=== PATIENT | male | born 1960 | race Caucasian/White ===

== ENCOUNTER → 2017-10-14 10:10 | Outpatient (CLI) | payer BC, SELFPAY ==
--- NOTE | 2017-10-14 10:14 | PCM.CR.HP2 ---
CR - History & Physical - General Arrival date:: 10/14/17 Arrival time:: 10:15 Date of Admission: 10/14/17 Referring Physician: Dr. Ammon Elias Primary Diagnosis: STEMI (acute myocardial infarction) w/ PCI-WHITNEY - History of Present Cardiac Event Onset Date: Enter Onset Date of cardiac illnesses in Comment field below OR:: Yes - Acute myocardial infarction (STEMI) 09/28/2017 PTCA:: Yes - 09/28/2017 PCI-WHITNEY to distal RCA and WHITNEY to proximal LAD Type of Symptoms:: Chest pain substernal for about an hour prior to arrival in emergency room. Left arm was completely numb hurting and finger tips became really cold. Interventions with present event:: Imergent transport to produce laborer from ER. Were there any complications?: none - Medications Home Medications: Ambulatory Orders Medication Instructions Recorded Aspirin E.C. [Ecotrin] 81 mg PO DAILY@0800 tablet 09/30/17 Atorvastatin Calcium [Lipitor] 40 mg PO QHS 30 Days #30 tab 09/30/17 Carvedilol [Coreg (Beta Rishabh)] 3.125 mg PO BID 60 Days #60 tab 09/30/17 Clopidogrel Bisulfate [Plavix] 75 mg PO DAILY 30 Days tab 09/30/17 Lisinopril [Zestril] 10 mg PO DAILY 30 Days #30 tab 09/30/17 - Allergies Allergies/Adverse Reactions: Allergies No Known Allergies Allergy (Verified 09/28/17 18:17) - Sleep Disorder Evaluation Hx of Sleep Apnea: No Do you snore loudly (louder than talking or can be heard through closed doors)?: No Do you often feel tired/ fatigued/ sleepy during daytime?: No Has anyone observed you stop breathing during sleep?: No History of Hypertension (for STOP score): Yes STOP Results: Negative Advanced Directives - Advanced Directives Power of Aircraft Communicator: Yes Living Will: Yes Advance Directives Information Provided: No Advance Directives on File: Yes DNR Order?:: No Past Medical History - Problems and Co-Morbidities Problems & Co-Morbidities: Smoking - Nicotine dependence; quit cold turkey at time of the OR, Dyslipidemia, Obesity, Hypertension - Past Cardiac Illness Past Cardiac Illness: Ejection Fraction - 50% per angiogram, Coronary Artery Disease - Other Other: Vision/Eye Problems - Cardiology Procedures/Interventions Cardiology Procedures/Interventions: Angioplasty, PCI w/Stenting, Heart Catheterization, Echocardiogram - Past Surgical History Surgical History: cholecystectomy, rotator cuff repair - right shoulder repair - Family History Summary Family History: Heart Disease: Sibling, Maternal - Brother; CAD, CABG. Mother PTCA, stents Review of Systems - Review of Systems Hints: Right click = Denies (Slash). Left click = Reports ([place]) Review of Present Symptoms: Reports: Shortness of Breath at Rest, Shortness of Breath with Exertion, Operative Discomfort - slight discomfort in chest since been home from hospital on scale 1-10 rated it at a 1., Fatigue, Appetite - Normal, Appetite - Special Diet - trying to change diet with what was given from admission., Sleep - Normal - works third shift; doesn't have a sleep pattern.. Denies: Angina, Dizziness/Lightheadedness, Sexual Changes Risk Factor Assessment - Chief Complaint Chief Complaint: Patient is a 56 year old male under the care of Dr. Elias who presents to cardiac rehab today. The patient was a recent STEMI and emergent PCI-WHITNEY procedures to the RCA and LAD coronary artery. - Pulse Pulse Rate: 62 - SpO2 98% room air. Pulse Rhythm: Regular - Hypertension On medication(s)?: recently since OR treated. Blood Pressure Sitting - Left Arm: 128/66 - Diabetes Nutrition Referral for Diabetes: No - Obesity Height: 5 ft 8.89 in Weight:: 95 kg Weight in Pounds: 209.4 lbs Body Mass Index (BMI): 31.0 Nutritional Referral for Obesity: No - Physical Inactivity Physical Inactivity: Physically demanding job - walk about 5 to 6 miles a day at work. - Risk Stratification Risk Guidelines: Lowest Risk: Risk Factor for Dyslipidemia, Risk Factor for Diabetes, Risk Factor for Hypertension, Risk Factor for Sedentary Lifestyle, Risk Factor for Depression, Highest Risk: Risk Factor for Smoking, Risk Factor for Obesity - For Smoking Smoking Risk Guidelines: Smoking Low Risk: None or quit greater than 6 months ago. Smoking Moderate Risk: Smoker or quit 6 months or less ago. Smoking High Risk: Smoker - For Dyslipidemia Dyslipidemia Risk Guidelines: Low Risk: Moderate Risk: High Risk: 15-25% fat 25.1-29% fat >/= 30% fat. <7% sat fat 7-9% sat fat >9% sat fat. <150 mg chol 150-299 mg chol >/= 300 mg chol. LDL <100 LDL 100-129 LDL >/= 130. Chol/HDL ratio <5.0 Chol/HDL ratio 5.0-6.0 Chol/HDL ratio >6.0. Triglycerides <100 Triglycerides 100-149 Triglycerides >/= 150 - For Diabetes Mellitus Diabetes Risk Guidelines: Diabetes Low Risk: HgA1c <6.5% and/or FBG <120. Diabetes Moderate Risk: HgA1c 6.6-7.9% and/or FBG 120-180. Diabetes High Risk: HgA1c >/= 8% and/or FBG >180 - For Obesity/Overweight Obesity/Overweight Risk Guidelines: Obesity Low Risk: BMI <25.0. Obesity Moderate Risk: BMI 25-29.9. Obesity High Risk: BMI >/= 30.0 - For Hypertension Hypertension Risk Guidelines: Hypertension Low Risk: Systolic <120 and Diastolic <80. Hypertension Moderate Risk: Systolic 120-139 and Diastolic 80-89. Hypertension High Risk: Systolic >/= 140 and Diastolic >/= 90 - For Sedentary Lifestyle Sedentary Lifestyle Risk Guidelines: Sedentary Lifestyle Low Risk: >/= 1,500 kcal/week. Sedentary Lifestyle Moderate Risk: 700-1,499 kcal/week. Sedentary Lifestyle High Risk: < 700 kcal/week - For Depression Depression Risk Guidelines: Depression Low Risk: Not clinically depressed. Depression Moderate Risk: Mildly depressed. Depression High Risk: Clinically depressed Social History - Smoking History Smoking Status: Former smoker - recently quit cold turkey with the OR Years Smokin - chew also Packs Smoked per Day: 1 Hx Smoking Cessation Date: 09/28/2017 Hx Tobacco Use: Yes Hx Smoking Exposure: No - Alcohol Use Alcohol Usage: Yes - Chronic alcohol use - Substance Abuse Hx Substance Use: Yes - previous; not in the last 20 years - Occupation Occupation (List type of work in comments):: Employed Hours worked per day:: 8 - Hobbies, Recreation, Social Activities Hobbies: Other - fishing, camping, outdoor stuff but hasnt been active with it lately. Recreational Activities: I am able to engage in most, but not all activities Marital Status - Status Marital Status: Single - Current Living Arrangements Living Environment:: Alone - Children How many children do you have?: 1 Do any of your children live nearby?: Yes - [place] - Safety Do you feel safe in your surroundings?: Yes - Assistance Do you need any assistance at home?: no
--- NOTE | 2017-10-14 10:25 | CR.ITP_ITS ---
Exercise - Initial Assessment - Visit Date of Eval: 10/14/17 - Stages of Change Stages of Change:: Action - Exercise Prescription Mode:: Treadmill, Rower, Airdyne, NuStep Angina with exercise?: No Target Heart Rate:: 124-132 - Intervention Home Exercise/Activity Goal:: Moderate Exercise 30 min/day x 5 days/wk - Education Goals:: Warm-up, RPE HARMONY Scale, S/S, Safe Exercise, Self-Monitoring - Exercise Program Goals Exercise Program Goals: Aerobic Activity >30 min Nutrition - Initial Assessment - Program Goals Nutrition Program Goals: LDL <70. Total Cholesterol <200. HDL >45. Triglycerides <150. HgbA1C <7%. BMI <25 - Visit Date of Assessment:: 10/14/17 - initial evaluation - Stages of Change Stages of Change:: Action - Diabetes Diabetes:: No - Weight Management Height: 5 ft 8.89 in Weight:: 95 kg Body Fat %:: 31.0 - Intervention Referral to dietitian:: No Referral to Diabetic Clinic:: No Will attend diet classes:: No - Education Gave educational materials for:: Healthy eating Nutrition - 30-Day Assessment - Program Goals Nutrition Program Goals: LDL <70. Total Cholesterol <200. HDL >45. Triglycerides <150. HgbA1C <7%. BMI <25 - Diabetes Diabetes:: No Nutrition - 60-Day Assessment - Program Goals Nutrition Program Goals: LDL <70. Total Cholesterol <200. HDL >45. Triglycerides <150. HgbA1C <7%. BMI <25 - Diabetes Diabetes:: No Nutrition - 90-Day Assessment - Program Goals Nutrition Program Goals: LDL <70. Total Cholesterol <200. HDL >45. Triglycerides <150. HgbA1C <7%. BMI <25 - Diabetes Diabetes:: No Nutrition - Final Assessment - Program Goals Nutrition Program Goals: LDL <70. Total Cholesterol <200. HDL >45. Triglycerides <150. HgbA1C <7%. BMI <25 - Diabetes Diabetes:: No Tobacco - Initial Assessment - Program Goals Tobacco Program Goals: Complete smoking cessation. Attend education classes. Improve Knowledge Test score - Stage of Change Stages of Change:: Action - Learning Barriers Learning Barriers: Vision - wears corrective lenses daily, Ready to Learn - Family Support Do you have family support?: Yes - Tobacco Use Tobacco Use: Cigarettes How long ago did you quit using tobacco products?: Less than 6 months ago How many cigarettes do you smoke per day?: 1 Years Smokin - in addition to smokeless tobacco use Do you use smokeless tobacco?: No - Intervention Smoking Cessation Referral:: Yes - Referred to Smoking Cessation Program at [facility]. Individual Education/Counseling:: No Education Schedule Given:: Yes - Education Gave educational material for:: Tobacco triggers, Coronary artery disease, Risk factors, Sexuality, Medical compliance, Cardiac A&P, Angina signs & symptoms Psychosocial - Initial Assess - Target Goals Target Goals: Assess presence or absence of depression. Using a valid screening tool, maximizes coping skills. Positive support system - Stages of Change Stages of Change:: Action - Psychosocial Test Tool Used:: HANDS Depression Questionnaire Tests Completed: SF - 36 survey completed, Mood Scale Test - Intervention PS - Interventions: Yes Attend Stress Management Classes, Yes Uses Stress Management Skills, No Referral to Mental Health, No Referral to [facility] Case Management, No Referral to Physician - Education Gave educational materials for:: Coping techniques, Signs & symptoms of depression, Stress management, Relaxation techniques - Patient/Program Goal Preventative Medication(s):: Aspirin, UMAIR inhibitor, Clopidogrel, Beta eric, Statin/lipid - Assistive Devices Assistive Devices:: None Fall Risk Assessed:: Yes Patient Health Questionnaire Initial Assessment 1. Little interest or pleasure in doing things: Not at all 2. Feeling down, depressed, or hopeless: Not at all 3. Trouble falling or staying asleep, or sleeping too much: Not at all 4. Feeling tired or having little energy: Not at all 5. Poor appetite or overeating: Not at all 6. Feeling bad about yourself -- or that you are a failure or have let yourself or your family down: Not at all 7. Trouble concentrating on things, such as reading the newspaper or watching television: Not at all 8. Moving or speaking so slowly that other people could have noticed. Or the opposite - being so fidgety or restless that you have been moving around a lot more than usual: Not at all 9. Thoughts that you would be better off , or of hurting yourself in some way: Not at all How difficult have these problems made it for you to do your work, take care of things at home, or get along with other people?: Not difficult at all Total Score: 0 Knowledge Test - Check your knowledge Initial The #1 cause of in the [place] each year is:: Cancer Which of the following is a common treatment for heart disease?: All of the above The arteries that feed the heart are called:: Coronary arteries HDL cholesterol is known as the good cholesterol.: False What disease increases your risk for heart disease?: Diabetes What food product raises blood cholesterol level the most?: Saturated fat The bad cholesterol in the blood is called:: RBC Hypertension is another word for:: High activity levels A blood pressure reading of 148/88 is considered normal.: False Exercise will only benefit your health when your heart rate reaches a target level.: False Total Score:: 6 Self-Efficacy Initial Assessment We would like to know how confident you are in doing certain activities. Please select your confidence level for:: Select your confidence level for the following using the scale 1-10 where 1 is not at all confident and 10 is totally confident. Your score is the average of all 6 responses. Fatigue: How confident are you that you can keep the fatigue caused by your disease from interfering with the things you want to do? Select Number: 6 Physical Discomfort or Pain: How confident are you that you can keep the physical discomfort or pain of your disease from interfering with the things you want to do? Select Number: 8 Emotional Distress: How confident are you that you can keep the emotional distress caused by your disease from interfering with the things you want to do? Select Number: 8 Other Symptoms or Health Problems: How confident are you that you can keep other symptoms or health problems from interfering with the things you want to do? Select Number: 8 Different Tasks and Activities: How confident are you that you can do the different tasks and activities needed to manage your health condition so as to reduce your need to see a doctor? Select Number: 7 Medication: How confident are you that you can do things other than just taking medication to reduce how much your illness affects your everyday life? Select Number: 8 Total Score:: 7 Nutrition Survey - Nutrition Survey Instructions Scoring Instructions: Scoring is as follows: Yes = 1 points. No = 0 point. Patient score that is >/=12 is considered to be at potential nutritional risk and could benefit from a referral to a registered dietitian. - Nutrition Survey Initial Have you lost >10 lbs over the past 2 months without trying?: No Are you following a special diet at home for diabetes, low fat, or low salt?: Yes Are you interested in meeting with a dietitian for help understanding your diet? : No Do you eat less than 3 meals a day?: Yes Do you eat fatty meats (ferris, sausage, ribs, etc), fried foods, desserts, large amounts of salad dressings, margarine, butter, or cheese most days?: No Do you have food allergies? [Enter types in comment field]: No Do you eat in restaurants more than 3 times a week?: No Do you season food with salt, seasoning salt, or garlic salt?: No Do you used canned, boxed, frozen meals, or soups, seasoning packets?: Yes Total Score:: 3 Cardiac Rehabilitation Goals - Cardiac Rehab Goals Cardiac Rehabilitation Goals: 1. Maintain the individual as the primary focus of care. 2. To improve the patient's quality of life. 3. Identification of cardiac risk factors and provide cardiac risk factor management. 4. Enhance the psychosocial status of the patient. 5. Reconditioning enough to allow the patient to resume customary activities. 6. Control symptoms of cardiac disease - Scale Scale for measuring improvement of personal goals: Enter appropriate number in Comments. 2 = Unchanged. 3 = Slightly Better. 4 = Moderate Improvement. 5 = Met my Goal Initial Assessment Personal Goals: 30-day Re-assessment: Quit smoking (participate in smoking cessation, Improve management of stress and emotions, Get back to work, or to resume activities faster, Improve knowledge of cardiac disease, Improve diet and eating habits (eat healthier), Control risk factors (learn risk factor modification)
--- NOTE | 2017-10-14 10:25 | CR.HP_ITS ---
CR - History & Physical - General Arrival date:: 10/14/17 Arrival time:: 10:15 Date of Admission: 10/14/17 Referring Physician: Dr. Ammon Elias Primary Diagnosis: STEMI (acute myocardial infarction) w/ PCI-WHITNEY - History of Present Cardiac Event Onset Date: Enter Onset Date of cardiac illnesses in Comment field below ID:: Yes - Acute myocardial infarction (STEMI) 09/28/2017 PTCA:: Yes - 09/28/2017 PCI-WHITNEY to distal RCA and WHITNEY to proximal LAD Type of Symptoms:: Chest pain substernal for about an hour prior to arrival in emergency room. Left arm was completely numb hurting and finger tips became really cold. 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 Were there any complications?: none - Medications Home Medications: Ambulatory Orders Medication Instructions Recorded Aspirin E.C. [Ecotrin] 81 mg PO DAILY@0800 tablet 09/30/17 Atorvastatin Calcium [Lipitor] 40 mg PO QHS 30 Days #30 tab 09/30/17 Carvedilol [Coreg (Beta Rishabh)] 3.125 mg PO BID 60 Days #60 tab 09/30/17 Clopidogrel Bisulfate [Plavix] 75 mg PO DAILY 30 Days tab 09/30/17 Lisinopril [Zestril] 10 mg PO DAILY 30 Days #30 tab 09/30/17 - Allergies Allergies/Adverse Reactions: Allergies No Known Allergies Allergy (Verified 09/28/17 18:17) - Sleep Disorder Evaluation Hx of Sleep Apnea: No Do you snore loudly (louder than talking or can be heard through closed doors)? : No Do you often feel tired/ fatigued/ sleepy during daytime?: No Has anyone observed you stop breathing during sleep?: No History of Hypertension (for STOP score): Yes STOP Results: Negative Advanced Directives - Advanced Directives Power of Veterinary Medicine Doctor: Yes Living Will: Yes Advance Directives Information Provided: No Advance Directives on File: Yes DNR Order?:: No Past Medical History - Problems and Co-Morbidities Problems & Co-Morbidities: Smoking - Nicotine dependence; quit cold turkey at time of the ID, Dyslipidemia, Obesity, Hypertension - Past Cardiac Illness Past Cardiac Illness: Ejection Fraction - 50% per angiogram, Coronary Artery Disease - Other Other: Vision/Eye Problems - Cardiology Procedures/Interventions Cardiology Procedures/Interventions: Angioplasty, PCI w/Stenting, Heart Catheterization, Echocardiogram - Past Surgical History Surgical History: cholecystectomy, rotator cuff repair - right shoulder repair - Family History Summary Family History: Heart Disease: Sibling, Maternal - Brother; CAD, CABG. Mother PTCA, stents Review of Systems - Review of Systems Hints: Right click = Denies ([place]). Left click = Reports ([place]) Review of Present Symptoms: Reports: Shortness of Breath at Rest, Shortness of Breath with Exertion, Operative Discomfort - slight discomfort in chest since been home from hospital on scale 1-10 rated it at a 1., Fatigue, Appetite - Normal, Appetite - Special Diet - trying to change diet with what was given from admission., Sleep - Normal - works third shift; doesn't have a sleep pattern.. Denies: Angina, Dizziness/Lightheadedness, Sexual Changes Risk Factor Assessment - Chief Complaint Chief Complaint: Patient is a 56 year old male under the care of Dr. Elias who presents to cardiac rehab today. The patient was a recent STEMI and emergent PCI -WHITNEY procedures to the RCA and LAD coronary artery. - Pulse Pulse Rate: 62 - SpO2 98% room air. Pulse Rhythm: Regular - Hypertension On medication(s)?: recently since ID treated. Blood Pressure Sitting - Left Arm: 128/66 - Diabetes Nutrition Referral for Diabetes: No - Obesity Height: 5 ft 8.89 in Weight:: 95 kg Weight in Pounds: 209.4 lbs Body Mass Index (BMI): 31.0 Nutritional Referral for Obesity: No - Physical Inactivity Physical Inactivity: Physically demanding job - walk about 5 to 6 miles a day at work. - Risk Stratification Risk Guidelines: Lowest Risk: Risk Factor for Dyslipidemia, Risk Factor for Diabetes, Risk Factor for Hypertension, Risk Factor for Sedentary Lifestyle, Risk Factor for Depression, Highest Risk: Risk Factor for Smoking, Risk Factor for Obesity - For Smoking Smoking Risk Guidelines: Smoking Low Risk: None or quit greater than 6 months ago. Smoking Moderate Risk: Smoker or quit 6 months or less ago. Smoking High Risk: Smoker - For Dyslipidemia Dyslipidemia Risk Guidelines: Low Risk: Moderate Risk: High Risk: 15-25% fat 25.1-29% fat >/= 30% fat. <7% sat fat 7-9% sat fat >9% sat fat. <150 mg chol 150-299 mg chol >/= 300 mg chol. LDL <100 LDL 100-129 LDL >/= 130. Chol/HDL ratio <5.0 Chol/HDL ratio 5.0-6.0 Chol/HDL ratio >6.0. Triglycerides <100 Triglycerides 100-149 Triglycerides >/= 150 - For Diabetes Mellitus Diabetes Risk Guidelines: Diabetes Low Risk: HgA1c <6.5% and/or FBG <120. Diabetes Moderate Risk: HgA1c 6.6-7.9% and/or FBG 120-180. Diabetes High Risk: HgA1c >/= 8% and/or FBG >180 - For Obesity/Overweight Obesity/Overweight Risk Guidelines: Obesity Low Risk: BMI <25.0. Obesity Moderate Risk: BMI 25-29.9. Obesity High Risk: BMI >/= 30.0 - For Hypertension Hypertension Risk Guidelines: Hypertension Low Risk: Systolic <120 and Diastolic <80. Hypertension Moderate Risk: Systolic 120-139 and Diastolic 80-89. Hypertension High Risk: Systolic >/= 140 and Diastolic >/= 90 - For Sedentary Lifestyle Sedentary Lifestyle Risk Guidelines: Sedentary Lifestyle Low Risk: >/= 1 ,500 kcal/week. Sedentary Lifestyle Moderate Risk: 700-1,499 kcal/week. Sedentary Lifestyle High Risk: < 700 kcal/week - For Depression Depression Risk Guidelines: Depression Low Risk: Not clinically depressed. Depression Moderate Risk: Mildly depressed. Depression High Risk: Clinically depressed Social History - Smoking History Smoking Status: Former smoker - recently quit cold turkey with the ID Years Smokin - chew also Packs Smoked per Day: 1 Hx Smoking Cessation Date: 09/28/2017 Hx Tobacco Use: Yes Hx Smoking Exposure: No - Alcohol Use Alcohol Usage: Yes - Chronic alcohol use - Substance Abuse Hx Substance Use: Yes - previous; not in the last 20 years - Occupation Occupation (List type of work in comments):: Employed Hours worked per day:: 8 - Hobbies, Recreation, Social Activities Hobbies: Other - fishing, camping, outdoor stuff but hasnt been active with it lately. Recreational Activities: I am able to engage in most, but not all activities Marital Status - Status Marital Status: Single - Current Living Arrangements Living Environment:: Alone - Children How many children do you have?: 1 Do any of your children live nearby?: Yes - [place] - Safety Do you feel safe in your surroundings?: Yes - Assistance Do you need any assistance at home?: no
[2017-10-14 10:41] VITALS: BP 128/66; PULSE 62; BMI 31.0
== END ==
PROVIDERS: Family Provider Internal Medicine; PCP Internal Medicine; Visit Provider Internal Medicine Cardiovascular Disease
DX: I25.2 Old myocardial infarction (principal)

== ENCOUNTER 2017-10-19 08:00 | Outpatient (RCR) | payer BC, SELFPAY | END 2017-10-19 23:59 | LOC: CR 08:00 | PROVIDERS: Family Provider Internal Medicine; PCP Internal Medicine; Visit Provider Internal Medicine Cardiovascular Disease | DX: I23.3 Rupture of cardiac wall without hemopericardium as current complication following acute myocardial infarction (principal); I25.10 Atherosclerotic heart disease of native coronary artery without angina pectoris; Z95.5 Presence of coronary angioplasty implant and graft | CPT/HCPCS: 93798 ==

== ENCOUNTER 2017-11-16 08:00 | Outpatient (RCR) | payer BC, SELFPAY ==
[2017-09-30 06:00] VITALS: BP 124/76
[2017-10-19 15:33] VITALS: BP 128/78; BMI 29.9
--- NOTE | 2017-11-15 08:17 | PCM.CR.ITP ---
Exercise - Initial Assessment - Stages of Change Stages of Change:: Action - Exercise Prescription Mode:: Treadmill, Rower, Airdyne, NuStep Angina with exercise?: No Target Heart Rate:: 124-132 - Intervention Home Exercise/Activity Goal:: Moderate Exercise 30 min/day x 5 days/wk - Education Goals:: Warm-up, RPE HARMONY Scale, S/S, Safe Exercise, Self-Monitoring - Exercise Program Goals Exercise Program Goals: Aerobic Activity >30 min Exercise - 30-day Assessment - Visit Date of Eval: 11/15/17 - Patient start date 10/17/2017 - Stages of Change Stages of Change:: Action - Exercise Prescription Mode:: Treadmill, Rower, Airdyne, NuStep Frequency (x/week): 3 Duration:: 30 METs - Progression: 0.5-1 MET as tolerated: 5 Target Heart Rate:: 132-141 w/max HR 153 - Hypertension Resting Blood Pressure:: 112/80 Peak Exercise Blood Pressure:: 158/94 Medication Changes:: No - Intervention Home Exercise/Activity Goal:: Moderate Exercise 30 min/day x 5 days/wk - Education Goals:: Warm-up, RPE HARMONY Scale, S/S, Safe Exercise, Self-Monitoring - Exercise Program Goals Exercise Program Goals: Aerobic Activity >30 min Nutrition - Initial Assessment - Program Goals Nutrition Program Goals: LDL <70. Total Cholesterol <200. HDL >45. Triglycerides <150. HgbA1C <7%. BMI <25 - Stages of Change Stages of Change:: Action - Diabetes Diabetes:: No - Weight Management Body Fat %:: 31.0 Total Score:: 3 - Intervention Referral to dietitian:: No Referral to Diabetic Clinic:: No Will attend diet classes:: No - Education Gave educational materials for:: Healthy eating Nutrition - 30-Day Assessment - Program Goals Nutrition Program Goals: LDL <70. Total Cholesterol <200. HDL >45. Triglycerides <150. HgbA1C <7%. BMI <25 - Visit Date of Eval: 11/15/17 - Stages of Change Stages of Change:: Action - Lipids Has the patient seen the dietitian?: No - Diabetes Diabetes:: No - Weight Management Weight:: 88.677 kg - Intervention Referral to dietitian:: No Referral to Diabetic Clinic:: No Will attend diet classes:: No - Education Attended class for:: Healthy eating Nutrition - 60-Day Assessment - Program Goals Nutrition Program Goals: LDL <70. Total Cholesterol <200. HDL >45. Triglycerides <150. HgbA1C <7%. BMI <25 - Diabetes Diabetes:: No - Intervention Referral to dietitian:: No Referral to Diabetic Clinic:: No Will attend diet classes:: No - Education Attended class for:: Healthy eating Nutrition - 90-Day Assessment - Program Goals Nutrition Program Goals: LDL <70. Total Cholesterol <200. HDL >45. Triglycerides <150. HgbA1C <7%. BMI <25 - Diabetes Diabetes:: No - Intervention Referral to dietitian:: No Referral to Diabetic Clinic:: No Will attend diet classes:: No - Education Attended class for:: Healthy eating Nutrition - Final Assessment - Program Goals Nutrition Program Goals: LDL <70. Total Cholesterol <200. HDL >45. Triglycerides <150. HgbA1C <7%. BMI <25 - Diabetes Diabetes:: No - Weight Management Body Fat %:: 31.0 Total Score:: 3 - Intervention Referral to dietitian:: No Referral to Diabetic Clinic:: No Will attend diet classes:: No Tobacco - Initial Assessment - Program Goals Tobacco Program Goals: Complete smoking cessation. Attend education classes. Improve Knowledge Test score - Stage of Change Stages of Change:: Action - Learning Barriers Learning Barriers: Vision - wears corrective lenses daily, Ready to Learn Total Score:: 6 - Family Support Do you have family support?: Yes - Tobacco Use Tobacco Use: Cigarettes How long ago did you quit using tobacco products?: Less than 6 months ago How many cigarettes do you smoke per day?: 1 Years Smokin - in addition to smokeless tobacco use Do you use smokeless tobacco?: No - Intervention Smoking Cessation Referral:: Yes - Referred to Smoking Cessation Program at [facility]. Individual Education/Counseling:: No Education Schedule Given:: Yes - Education Gave educational material for:: Tobacco triggers, Coronary artery disease, Risk factors, Sexuality, Medical compliance, Cardiac A&P, Angina signs & symptoms Tobacco - 30-Day Assessment - Program Goals Tobacco Program Goals: Complete smoking cessation. Attend education classes. Improve Knowledge Test score - Stage of Change Stages of Change:: Action - Learning Barriers Learning Barriers: Participates in education - Family Support Do you have family support?: Yes - Tobacco Use Tobacco Use: Non-smoker How many cigarettes do you smoke per day?: 0 Do you use smokeless tobacco?: No - Intervention Smoking Cessation Referral:: Yes - Referred to Smoking Cessation Program at [facility]. Individual Education/Counseling:: No Education Schedule Given:: Yes - Education Attended class for:: Tobacco triggers, Coronary artery disease, Risk factors, Sexuality, Medical compliance, Cardiac A&P, Angina signs & symptoms Tobacco - 60-Day Assessment - Program Goals Tobacco Program Goals: Complete smoking cessation. Attend education classes. Improve Knowledge Test score - Family Support Do you have family support?: Yes - Tobacco Use How many cigarettes do you smoke per day?: 1 Do you use smokeless tobacco?: No - Intervention Smoking Cessation Referral:: Yes - Referred to Smoking Cessation Program at [facility]. Individual Education/Counseling:: No Education Schedule Given:: Yes - Education Attended class for:: Tobacco triggers, Coronary artery disease, Risk factors, Sexuality, Medical compliance, Cardiac A&P, Angina signs & symptoms Tobacco - 90-Day Assessment - Program Goals Tobacco Program Goals: Complete smoking cessation. Attend education classes. Improve Knowledge Test score - Family Support Do you have family support?: Yes - Tobacco Use How many cigarettes do you smoke per day?: 1 Do you use smokeless tobacco?: No - Intervention Smoking Cessation Referral:: Yes - Referred to Smoking Cessation Program at [facility]. Individual Education/Counseling:: No Education Schedule Given:: Yes - Education Attended class for:: Tobacco triggers, Coronary artery disease, Risk factors, Sexuality, Medical compliance, Cardiac A&P, Angina signs & symptoms Tobacco - Final Assessment - Program Goals Tobacco Program Goals: Complete smoking cessation. Attend education classes. Improve Knowledge Test score - Learning Barriers Cardiac Knowledge Test Score:: 6 - Family Support Do you have family support?: Yes - Tobacco Use How many cigarettes do you smoke per day?: 1 Do you use smokeless tobacco?: No - Intervention Smoking Cessation Referral:: Yes - Referred to Smoking Cessation Program at [facility]. Individual Education/Counseling:: No Education Schedule Given:: Yes Psychosocial - Initial Assess - Target Goals Target Goals: Assess presence or absence of depression. Using a valid screening tool, maximizes coping skills. Positive support system - Stages of Change Stages of Change:: Action - Psychosocial Test Tool Used:: HANDS Depression Questionnaire Tests Completed: SF - 36 survey completed, Mood Scale Test Self-Efficacy Score:: 7 - Intervention PS - Interventions: Yes Attend Stress Management Classes, Yes Uses Stress Management Skills, No Referral to Mental Health, No Referral to [facility] Case Management, No Referral to Physician - Education Gave educational materials for:: Coping techniques, Signs & symptoms of depression, Stress management, Relaxation techniques - Patient/Program Goal Preventative Medication(s):: Aspirin, UMAIR inhibitor, Clopidogrel, Beta eric, Statin/lipid - Assistive Devices Assistive Devices:: None Fall Risk Assessed:: Yes Psychosocial - 30-Day Assess - Target Goals Target Goals: Assess presence or absence of depression. Using a valid screening tool, maximizes coping skills. Positive support system - Stages of Change Stages of Change:: Action - Psychosocial Test Tool Used:: HANDS Depression Questionnaire Self-Efficacy Score:: 7 - Intervention PS - Interventions: Yes Attend Stress Management Classes, Yes Uses Stress Management Skills, No Referral to Mental Health, No Referral to [facility] Case Management, No Referral to Physician - Education Attended classes for:: Coping techniques, Signs & symptoms of depression, Stress management, Relaxation techniques - Patient/Program Goal Preventative Medication(s):: Aspirin, UMAIR inhibitor, Clopidogrel, Beta eric, Statin/lipid - Assistive Devices Assistive Devices:: None Fall Risk Assessed:: Yes Psychosocial - 60-Day Assess - Target Goals Target Goals: Assess presence or absence of depression. Using a valid screening tool, maximizes coping skills. Positive support system - Psychosocial Test Tool Used:: HANDS Depression Questionnaire Self-Efficacy Score:: 7 - Education Attended classes for:: Coping techniques, Signs & symptoms of depression, Stress management, Relaxation techniques - Patient/Program Goal Preventative Medication(s):: Aspirin, UMAIR inhibitor, Clopidogrel, Beta eric, Statin/lipid - Assistive Devices Assistive Devices:: None Fall Risk Assessed:: Yes Psychosocial - 90-Day Assess - Target Goals Target Goals: Assess presence or absence of depression. Using a valid screening tool, maximizes coping skills. Positive support system - Psychosocial Test Tool Used:: HANDS Depression Questionnaire Self-Efficacy Score:: 7 - Education Attended classes for:: Coping techniques, Signs & symptoms of depression, Stress management, Relaxation techniques - Patient/Program Goal Preventative Medication(s):: Aspirin, UMAIR inhibitor, Clopidogrel, Beta eric, Statin/lipid - Assistive Devices Assistive Devices:: None Fall Risk Assessed:: Yes Psychosocial - Final Assessmen - Target Goals Target Goals: Assess presence or absence of depression. Using a valid screening tool, maximizes coping skills. Positive support system - Psychosocial Test Tool Used:: HANDS Depression Questionnaire Tests Completed: SF - 36 survey completed, Mood Scale Test Self-Efficacy Score:: 7 - Patient/Program Goal Preventative Medication(s):: Aspirin, UMAIR inhibitor, Clopidogrel, Beta eric, Statin/lipid - Assistive Devices Assistive Devices:: None Fall Risk Assessed:: Yes Patient Health Questionnaire 30-Day Re-eval Assessment 1. Little interest or pleasure in doing things: Not at all 2. Feeling down, depressed, or hopeless: Not at all 3. Trouble falling or staying asleep, or sleeping too much: Not at all 4. Feeling tired or having little energy: Not at all 5. Poor appetite or overeating: Not at all 6. Feeling bad about yourself -- or that you are a failure or have let yourself or your family down: Not at all 7. Trouble concentrating on things, such as reading the newspaper or watching television: Not at all 8. Moving or speaking so slowly that other people could have noticed. Or the opposite - being so fidgety or restless that you have been moving around a lot more than usual: Not at all 9. Thoughts that you would be better off , or of hurting yourself in some way: Not at all Total Score: 0 Self-Efficacy 30-Day Re-eval Assessment We would like to know how confident you are in doing certain activities. Please select your confidence level for:: Select your confidence level for the following using the scale 1-10 where 1 is not at all confident and 10 is totally confident. Your score is the average of all 6 responses. Fatigue: How confident are you that you can keep the fatigue caused by your disease from interfering with the things you want to do? Select Number: 9 Physical Discomfort or Pain: How confident are you that you can keep the physical discomfort or pain of your disease from interfering with the things you want to do? Select Number: 10 Emotional Distress: How confident are you that you can keep the emotional distress caused by your disease from interfering with the things you want to do? Select Number: 10 Other Symptoms or Health Problems: How confident are you that you can keep other symptoms or health problems from interfering with the things you want to do? Select Number: 10 Different Tasks and Activities: How confident are you that you can do the different tasks and activities needed to manage your health condition so as to reduce your need to see a doctor? Select Number: 10 Medication: How confident are you that you can do things other than just taking medication to reduce how much your illness affects your everyday life? Select Number: 10 Total Score:: 9
[2017-11-15 08:20] VITALS: BP 112/80; BP 158/94
== END 2017-11-16 23:59 ==
LOC: CR 08:00
PROVIDERS: Family Provider Internal Medicine; PCP Internal Medicine; Visit Provider Internal Medicine Cardiovascular Disease
DX: I23.3 Rupture of cardiac wall without hemopericardium as current complication following acute myocardial infarction (principal); I25.10 Atherosclerotic heart disease of native coronary artery without angina pectoris; I21.3 ST elevation (STEMI) myocardial infarction of unspecified site; Z95.5 Presence of coronary angioplasty implant and graft
CPT/HCPCS: 93798

== ENCOUNTER 2017-12-16 08:00 | Outpatient (RCR) | payer BC, SELFPAY ==
[2017-11-17 00:59] VITALS: BP 112/80; BP 128/78; BP 158/94; BMI 29.9
[2017-12-12 08:10] VITALS: BP 112/68; BP 178/102
--- NOTE | 2017-12-12 08:11 | CR.ITP_ITS ---
Exercise - Initial Assessment - Stages of Change Stages of Change:: Action - Exercise Prescription Mode:: Treadmill, Rower, Airdyne, NuStep Angina with exercise?: No Target Heart Rate:: 124-132 - Intervention Home Exercise/Activity Goal:: Moderate Exercise 30 min/day x 5 days/wk - Education Goals:: Warm-up, RPE HARMONY Scale, S/S, Safe Exercise, Self-Monitoring - Exercise Program Goals Exercise Program Goals: Aerobic Activity >30 min Exercise - 30-day Assessment - Visit Date of Eval: 11/15/17 - Stages of Change Stages of Change:: Action - Exercise Prescription Mode:: Treadmill, Rower, Airdyne, NuStep Frequency (x/week): 3 Duration:: 30 METs - Progression: 0.5-1 MET as tolerated: 5 Target Heart Rate:: 132-141 w/max HR 153 - Intervention Home Exercise/Activity Goal:: Moderate Exercise 30 min/day x 5 days/wk - Education Goals:: Warm-up, RPE HARMONY Scale, S/S, Safe Exercise, Self-Monitoring - Exercise Program Goals Exercise Program Goals: Aerobic Activity >30 min Exercise - 60-Day Assessment - Visit Date of Eval: 12/12/17 Session #:: 24 - Dates 11/14-12/09/17 - Stages of Change Stages of Change:: Action - Exercise Prescription Mode:: Treadmill, Rower, Airdyne, NuStep Frequency (x/week): 3 Duration:: 35 METs: 6 Target Heart Rate:: 132-141 - Hypertension Resting Blood Pressure:: 112/68 Peak Exercise Blood Pressure:: 178/102 Medication Changes:: No - Intervention Home Exercise/Activity Goal:: Moderate Exercise 30 min/day x 5 days/wk - Education Goals:: Warm-up, RPE HARMONY Scale, S/S, Safe Exercise, Self-Monitoring - Exercise Program Goals Exercise Program Goals: Aerobic Activity >30 min Nutrition - Initial Assessment - Program Goals Nutrition Program Goals: LDL <70. Total Cholesterol <200. HDL >45. Triglycerides <150. HgbA1C <7%. BMI <25 - Stages of Change Stages of Change:: Action - Diabetes Diabetes:: No - Weight Management Body Fat %:: 31.0 Total Score:: 3 - Intervention Referral to dietitian:: No Referral to Diabetic Clinic:: No Will attend diet classes:: No - Education Gave educational materials for:: Healthy eating Nutrition - 30-Day Assessment - Program Goals Nutrition Program Goals: LDL <70. Total Cholesterol <200. HDL >45. Triglycerides <150. HgbA1C <7%. BMI <25 - Stages of Change Stages of Change:: Action - Lipids Has the patient seen the dietitian?: No - Diabetes Diabetes:: No - Intervention Referral to dietitian:: No Referral to Diabetic Clinic:: No Will attend diet classes:: No - Education Attended class for:: Healthy eating Nutrition - 60-Day Assessment - Program Goals Nutrition Program Goals: LDL <70. Total Cholesterol <200. HDL >45. Triglycerides <150. HgbA1C <7%. BMI <25 - Visit Date of Eval: 12/12/17 - Dates 11/14-12/09/17 - Stages of Change Stages of Change:: Action - Lipids Has the patient seen the dietitian?: No - Diabetes Diabetes:: No - Weight Management Weight:: 200 lb - Intervention Referral to dietitian:: No Referral to Diabetic Clinic:: No Will attend diet classes:: No - Education Attended class for:: Healthy eating Nutrition - 90-Day Assessment - Program Goals Nutrition Program Goals: LDL <70. Total Cholesterol <200. HDL >45. Triglycerides <150. HgbA1C <7%. BMI <25 - Lipids Has the patient seen the dietitian?: No - Diabetes Diabetes:: No - Intervention Referral to dietitian:: No Referral to Diabetic Clinic:: No Will attend diet classes:: No - Education Attended class for:: Healthy eating Nutrition - Final Assessment - Program Goals Nutrition Program Goals: LDL <70. Total Cholesterol <200. HDL >45. Triglycerides <150. HgbA1C <7%. BMI <25 - Diabetes Diabetes:: No - Weight Management Body Fat %:: 31.0 Total Score:: 3 - Intervention Referral to dietitian:: No Referral to Diabetic Clinic:: No Will attend diet classes:: No Tobacco - Initial Assessment - Program Goals Tobacco Program Goals: Complete smoking cessation. Attend education classes. Improve Knowledge Test score - Stage of Change Stages of Change:: Action - Learning Barriers Learning Barriers: Vision - wears corrective lenses daily, Ready to Learn Total Score:: 6 - Family Support Do you have family support?: Yes - Tobacco Use Tobacco Use: Cigarettes How long ago did you quit using tobacco products?: Less than 6 months ago How many cigarettes do you smoke per day?: 1 Years Smokin - in addition to smokeless tobacco use Do you use smokeless tobacco?: No - Intervention Smoking Cessation Referral:: Yes - Referred to Smoking Cessation Program at [facility]. Individual Education/Counseling:: No Education Schedule Given:: Yes - Education Gave educational material for:: Tobacco triggers, Coronary artery disease, Risk factors, Sexuality, Medical compliance, Cardiac A&P, Angina signs & symptoms Tobacco - 30-Day Assessment - Program Goals Tobacco Program Goals: Complete smoking cessation. Attend education classes. Improve Knowledge Test score - Stage of Change Stages of Change:: Action - Learning Barriers Learning Barriers: Participates in education - Family Support Do you have family support?: Yes - Tobacco Use Tobacco Use: Non-smoker How many cigarettes do you smoke per day?: 1 Do you use smokeless tobacco?: No - Intervention Smoking Cessation Referral:: Yes - Referred to Smoking Cessation Program at [facility]. Individual Education/Counseling:: No Education Schedule Given:: Yes - Education Attended class for:: Tobacco triggers, Coronary artery disease, Risk factors, Sexuality, Medical compliance, Cardiac A&P, Angina signs & symptoms Tobacco - 60-Day Assessment - Program Goals Tobacco Program Goals: Complete smoking cessation. Attend education classes. Improve Knowledge Test score - Stage of Change Stages of Change:: Action - Learning Barriers Learning Barriers: Participates in education - Family Support Do you have family support?: Yes - Tobacco Use Tobacco Use: Non-smoker How many cigarettes do you smoke per day?: 1 Do you use smokeless tobacco?: No - Intervention Smoking Cessation Referral:: Yes - Referred to Smoking Cessation Program at [facility]. Individual Education/Counseling:: No Education Schedule Given:: Yes - Education Attended class for:: Tobacco triggers, Coronary artery disease, Risk factors, Sexuality, Medical compliance, Cardiac A&P, Angina signs & symptoms Tobacco - 90-Day Assessment - Program Goals Tobacco Program Goals: Complete smoking cessation. Attend education classes. Improve Knowledge Test score - Family Support Do you have family support?: Yes - Tobacco Use Tobacco Use: Non-smoker How many cigarettes do you smoke per day?: 1 Do you use smokeless tobacco?: No - Intervention Smoking Cessation Referral:: Yes - Referred to Smoking Cessation Program at [facility]. Individual Education/Counseling:: No Education Schedule Given:: Yes - Education Attended class for:: Tobacco triggers, Coronary artery disease, Risk factors, Sexuality, Medical compliance, Cardiac A&P, Angina signs & symptoms Tobacco - Final Assessment - Program Goals Tobacco Program Goals: Complete smoking cessation. Attend education classes. Improve Knowledge Test score - Learning Barriers Cardiac Knowledge Test Score:: 6 - Family Support Do you have family support?: Yes - Tobacco Use Tobacco Use: Non-smoker How many cigarettes do you smoke per day?: 1 Do you use smokeless tobacco?: No - Intervention Smoking Cessation Referral:: Yes - Referred to Smoking Cessation Program at [facility]. Individual Education/Counseling:: No Education Schedule Given:: Yes Psychosocial - Initial Assess - Target Goals Target Goals: Assess presence or absence of depression. Using a valid screening tool, maximizes coping skills. Positive support system - Stages of Change Stages of Change:: Action - Psychosocial Test Tool Used:: HANDS Depression Questionnaire Tests Completed: SF - 36 survey completed, Mood Scale Test Self-Efficacy Score:: 7 - Education Gave educational materials for:: Coping techniques, Signs & symptoms of depression, Stress management, Relaxation techniques - Patient/Program Goal Preventative Medication(s):: Aspirin, UMAIR inhibitor, Clopidogrel, Beta eric, Statin/lipid - Assistive Devices Assistive Devices:: None Fall Risk Assessed:: Yes Psychosocial - 30-Day Assess - Target Goals Target Goals: Assess presence or absence of depression. Using a valid screening tool, maximizes coping skills. Positive support system - Stages of Change Stages of Change:: Action - Psychosocial Test Tool Used:: HANDS Depression Questionnaire Self-Efficacy Score:: 7 - Patient/Program Goal Preventative Medication(s):: Aspirin, UMAIR inhibitor, Clopidogrel, Beta eric, Statin/lipid - Assistive Devices Assistive Devices:: None Fall Risk Assessed:: Yes Psychosocial - 60-Day Assess - Target Goals Target Goals: Assess presence or absence of depression. Using a valid screening tool, maximizes coping skills. Positive support system - Psychosocial Test Tool Used:: HANDS Depression Questionnaire Self-Efficacy Score:: 7 - Intervention PS - Interventions: Yes Attend Stress Management Classes, Yes Uses Stress Management Skills, No Referral to Mental Health, No Referral to [facility] Case Management, No Referral to Physician - Education Attended classes for:: Coping techniques, Signs & symptoms of depression, Stress management, Relaxation techniques - Patient/Program Goal Preventative Medication(s):: Aspirin, UMAIR inhibitor, Clopidogrel, Beta eric, Statin/lipid - Assistive Devices Assistive Devices:: None Fall Risk Assessed:: Yes Psychosocial - 90-Day Assess - Target Goals Target Goals: Assess presence or absence of depression. Using a valid screening tool, maximizes coping skills. Positive support system - Psychosocial Test Tool Used:: HANDS Depression Questionnaire Self-Efficacy Score:: 7 - Education Attended classes for:: Coping techniques, Signs & symptoms of depression, Stress management, Relaxation techniques - Patient/Program Goal Preventative Medication(s):: Aspirin, UMAIR inhibitor, Clopidogrel, Beta eric, Statin/lipid - Assistive Devices Assistive Devices:: None Fall Risk Assessed:: Yes Psychosocial - Final Assessmen - Target Goals Target Goals: Assess presence or absence of depression. Using a valid screening tool, maximizes coping skills. Positive support system - Psychosocial Test Tool Used:: HANDS Depression Questionnaire Tests Completed: SF - 36 survey completed, Mood Scale Test Self-Efficacy Score:: 7 - Patient/Program Goal Preventative Medication(s):: Aspirin, UMAIR inhibitor, Clopidogrel, Beta eric, Statin/lipid - Assistive Devices Assistive Devices:: None Fall Risk Assessed:: Yes Patient Health Questionnaire 60-Day Re-eval Assessment 1. Little interest or pleasure in doing things: Not at all 2. Feeling down, depressed, or hopeless: Not at all 3. Trouble falling or staying asleep, or sleeping too much: Not at all 4. Feeling tired or having little energy: Not at all 5. Poor appetite or overeating: Not at all 6. Feeling bad about yourself -- or that you are a failure or have let yourself or your family down: Not at all 7. Trouble concentrating on things, such as reading the newspaper or watching television: Not at all 8. Moving or speaking so slowly that other people could have noticed. Or the opposite - being so fidgety or restless that you have been moving around a lot more than usual: Not at all 9. Thoughts that you would be better off , or of hurting yourself in some way: Not at all Total Score: 0 Self-Efficacy 60-Day Re-eval Assessment We would like to know how confident you are in doing certain activities. Please select your confidence level for:: Select your confidence level for the following using the scale 1-10 where 1 is not at all confident and 10 is totally confident. Your score is the average of all 6 responses. Fatigue: How confident are you that you can keep the fatigue caused by your disease from interfering with the things you want to do? Select Number: 9 Physical Discomfort or Pain: How confident are you that you can keep the physical discomfort or pain of your disease from interfering with the things you want to do? Select Number: 10 Emotional Distress: How confident are you that you can keep the emotional distress caused by your disease from interfering with the things you want to do? Select Number: 10 Other Symptoms or Health Problems: How confident are you that you can keep other symptoms or health problems from interfering with the things you want to do? Select Number: 9 Different Tasks and Activities: How confident are you that you can do the different tasks and activities needed to manage your health condition so as to reduce your need to see a doctor? Select Number: 10 Medication: How confident are you that you can do things other than just taking medication to reduce how much your illness affects your everyday life? Select Number: 10 Total Score:: 9 Cardiac Rehabilitation Goals - Cardiac Rehab Goals Cardiac Rehabilitation Goals: 1. Maintain the individual as the primary focus of care. 2. To improve the patient's quality of life. 3. Identification of cardiac risk factors and provide cardiac risk factor management. 4. Enhance the psychosocial status of the patient. 5. Reconditioning enough to allow the patient to resume customary activities. 6. Control symptoms of cardiac disease - Scale Scale for measuring improvement of personal goals: Enter appropriate number in Comments. 2 = Unchanged. 3 = Slightly Better. 4 = Moderate Improvement. 5 = Met my Goal 60-Day Re-eval Assessment Personal Goals: 60-day Re-assessment: Improve energy level, Get back to work, or to resume activities faster - Returned to work no issues., Improve knowledge of cardiac disease - progressing, Improve muscle strength and endurance, Control risk factors (learn risk factor modification) - progressing
== END 2017-12-17 23:59 ==
LOC: CR 08:00
PROVIDERS: Family Provider Internal Medicine; PCP Internal Medicine; Visit Provider Internal Medicine Cardiovascular Disease
DX: I23.3 Rupture of cardiac wall without hemopericardium as current complication following acute myocardial infarction (principal); I25.10 Atherosclerotic heart disease of native coronary artery without angina pectoris; Z95.5 Presence of coronary angioplasty implant and graft
CPT/HCPCS: 93798

== ENCOUNTER 2018-01-04 08:00 | Outpatient (RCR) | payer BC, SELFPAY ==
[2017-12-18 00:49] VITALS: BP 112/68; BP 128/78; BP 178/102; BMI 29.9
[2018-01-10 06:23] VITALS: BP 128/74; BP 144/84
--- NOTE | 2018-01-10 06:24 | CR.ITP_ITS ---
Exercise - Final/Discharge - Visit Date of Eval: 01/10/18 - discharged 01/04/2018 Session #:: 35 - Stages of Change Stages of Change:: Action - Exercise Prescription Mode:: Treadmill, Rower, Airdyne, NuStep Frequency (x/week): 3 Duration:: 30 METs: 7 Target Heart Rate:: 132-141 w/max HR 147 - Hypertension Do any of the following apply?: Yes Resting Blood Pressure:: 128/74 - optimal BP control < 130/80 Peak Exercise Blood Pressure:: 144/84 - Intervention Home Exercise/Activity Goal:: Moderate Exercise 30 min/day x 5 days/wk - Education Goal Progress: Goal Met - Exercise Program Goals Exercise Program Goals: Aerobic Activity >30 min Nutrition - Final Assessment - Program Goals Nutrition Program Goals: LDL <70. Total Cholesterol <200. HDL >45. Triglycerides <150. HgbA1C <7%. BMI <25 - Visit Date of Eval: 01/10/18 - Stages of Change Stages of Change:: Action - Diabetes Diabetes:: No Insulin: No Non-Insulin Dependent?: No - Weight Management Height: 5 ft 8.89 in Weight:: 198 lb - 197.5 beginning weight - Intervention Referral to dietitian:: No Referral to Diabetic Clinic:: No Will attend diet classes:: Yes - Education Education Goal Reached?: Yes Tobacco - Initial Assessment - Program Goals Tobacco Program Goals: Complete smoking cessation. Attend education classes. Improve Knowledge Test score - Learning Barriers Learning Barriers: Vision - wears corrective lenses daily, Ready to Learn Tobacco - Final Assessment - Program Goals Tobacco Program Goals: Complete smoking cessation. Attend education classes. Improve Knowledge Test score - Stage of Change Stages of Change:: Action - Family Support Do you have family support?: Yes - Tobacco Use Tobacco Use: Non-smoker Do you use smokeless tobacco?: No - Intervention Smoking Cessation Referral:: No Individual Education/Counseling:: No Education Schedule Given:: Yes - Education Education Goal Reached?: Yes Psychosocial - Initial Assess - Target Goals Target Goals: Assess presence or absence of depression. Using a valid screening tool, maximizes coping skills. Positive support system - Psychosocial Test Tool Used:: HANDS Depression Questionnaire - Assistive Devices Fall Risk Assessed:: Yes Psychosocial - Final Assessmen - Target Goals Target Goals: Assess presence or absence of depression. Using a valid screening tool, maximizes coping skills. Positive support system - Stages of Change Stages of Change:: Action - Psychosocial Test Tool Used:: HANDS Depression Questionnaire - Intervention PS - Interventions: Yes Attend Stress Management Classes, Yes Uses Stress Management Skills, No Referral to Mental Health, No Referral to [facility] Case Management, No Referral to Physician - Education Education Goal Reached?: Yes - Patient/Program Goal Preventative Medication(s):: Aspirin, Clopidogrel, Beta eric, Statin/lipid - Assistive Devices Assistive Devices:: None Fall Risk Assessed:: Yes Patient Health Questionnaire Discharge Assessment 1. Little interest or pleasure in doing things: Not at all 2. Feeling down, depressed, or hopeless: Not at all 3. Trouble falling or staying asleep, or sleeping too much: Not at all 4. Feeling tired or having little energy: Not at all 5. Poor appetite or overeating: Not at all 6. Feeling bad about yourself -- or that you are a failure or have let yourself or your family down: Not at all 7. Trouble concentrating on things, such as reading the newspaper or watching television: Not at all 8. Moving or speaking so slowly that other people could have noticed. Or the opposite - being so fidgety or restless that you have been moving around a lot more than usual: Not at all 9. Thoughts that you would be better off , or of hurting yourself in some way: Not at all How difficult have these problems made it for you to do your work, take care of things at home, or get along with other people?: Not difficult at all Total Score: 0 JERONIMO-Q SV Test - Statements CAD is a disease of the arteries in the heart: False Examples of risk factors for heart disease: True Angina is chest pain or discomfort: True The benefits of resistance training include: True Eating more meat and dairy products: False Anti-platelet medications such as aspirin are important: True The only effective way to manage stress: False An exercise warm-up slowly increases heart rate: True Prepared, processed foods usually have high sodium: True Depression is common after a heart attack: True The statin medications lower cholesterol: True To control blood pressure, lower the amount of sodium: True If someone gets chest discomfort during walking: False Transfats are partially hydrogenated vegetable oils: True Sleep apnea that is not treated increases the risk: False To control cholesterol, one should become a vegetarian: False Someone knows if he/she is exercising at the right level: True Diabetes cannot be prevented with exercise & health eating: False Stress is a large risk for heart attack: True A diet that can help lower blood pressure is rich in: True - Total Score Total Correct Responses: 19 Self-Efficacy Discharge Assessment We would like to know how confident you are in doing certain activities. Please select your confidence level for:: Select your confidence level for the following using the scale 1-10 where 1 is not at all confident and 10 is totally confident. Your score is the average of all 6 responses. Fatigue: How confident are you that you can keep the fatigue caused by your disease from interfering with the things you want to do? Select Number: 9 Physical Discomfort or Pain: How confident are you that you can keep the physical discomfort or pain of your disease from interfering with the things you want to do? Select Number: 9 Emotional Distress: How confident are you that you can keep the emotional distress caused by your disease from interfering with the things you want to do? Select Number: 9 Other Symptoms or Health Problems: How confident are you that you can keep other symptoms or health problems from interfering with the things you want to do? Select Number: 9 Different Tasks and Activities: How confident are you that you can do the different tasks and activities needed to manage your health condition so as to reduce your need to see a doctor? Select Number: 9 Medication: How confident are you that you can do things other than just taking medication to reduce how much your illness affects your everyday life? Select Number: 9 Total Score:: 9 Nutrition Survey - Nutrition Survey Instructions Scoring Instructions: Scoring is as follows: Yes = 1 points. No = 0 point. Patient score that is >/=12 is considered to be at potential nutritional risk and could benefit from a referral to a registered dietitian. - Nutrition Survey Discharge Have you lost >10 lbs over the past 2 months without trying?: Yes Are you following a special diet at home for diabetes, low fat, or low salt?: Yes Are you interested in meeting with a dietitian for help understanding your diet? : No Do you eat less than 3 meals a day?: No Do you eat fatty meats (ferris, sausage, ribs, etc), fried foods, desserts, large amounts of salad dressings, margarine, butter, or cheese most days?: No Do you have food allergies? [Enter types in comment field]: No Do you eat in restaurants more than 3 times a week?: No Do you season food with salt, seasoning salt, or garlic salt?: No Do you used canned, boxed, frozen meals, or soups, seasoning packets?: No Total Score:: 2
== END 2018-01-06 08:55 | disposition home or self-care (01) ==
LOC: CR 08:00
PROVIDERS: Family Provider Internal Medicine; PCP Internal Medicine; Visit Provider Internal Medicine Cardiovascular Disease
DX: I23.3 Rupture of cardiac wall without hemopericardium as current complication following acute myocardial infarction (principal); I25.10 Atherosclerotic heart disease of native coronary artery without angina pectoris; Z95.5 Presence of coronary angioplasty implant and graft
CPT/HCPCS: 93798

== ENCOUNTER 2019-01-15 11:15 | Day surgery (SDC) | payer BC, SELFPAY ==
[2018-10-26 08:43] VITALS: BMI 30.2
[2019-01-15 11:35] VITALS: BP 135/92; PULSE 64; RESP 16; TEMP 36.8; O2SAT 100; BMI 28.4
--- NOTE | 2019-01-15 11:52 | PCM.HP.BLA ---
History and Physical Date of Admission: 01/15/19 HISTORY AND PHYSICAL ? Branden Llamas 1960 ? REFERRING PHYSICIAN: ??Evan Coronel MD ? CHIEF COMPLAINT: ??Established Patient (Update H&P Colonoscopy) ? HPI: The patient is a 58 year old male referred for endoscopy.??Per my prior H&P from 10/13/18: ? The patient is a 57 year old male referred for endoscopy. ?Branden notes no history of colon complaints.??Specifically?he denies any change in bowel habits, weight changes, blood in stools, black tarry stools or abdominal pain.??He denies any family history of colon issues.??The patient??notes no history of upper GI complaints.???Branden?has not?undergone prior endoscopy. ? ? Patient's past medical history is significant for hypertension, hypercholesterolemia, coronary artery disease. ?He had an ST elevation myocardial infarction in September 2017 with stent placement at that time. ?Patient's paper products printer is Dr. Elias, patient admits has not followed up in over 6 months although instructed to follow up with cardiology by his PCP. ? He notes also that he had discontinued his Plavix himself due to cost of medication, had also stopped taking his blood pressure medications but is now back on these after recent visit with Dr. Coronel and is taking a daily low-dose aspirin. ?Patient admits he has not made his paper products printer aware that he stopped the Plavix. ?Patient denies any chest pain, shortness of breath or recent hospitalizations. ?He denies problems with sedation in the past. ? Cardiac clearance was received from Dr. Elias's office, and patient is scheduled for colonoscopy 01/15/19 at [facility] with Dr. Chowdhury. ?Patient presents to update H&P. ?The patient denies any significant change to his overall health since his last visit.??Denies chest pain or shortness of breath.??His past medical history, past surgical history, medications and allergies are up to date as of this visit. ? ? PAST?MEDICAL?HISTORY PAST MEDICAL HISTORY Diagnosis Date ? Campylobacter diarrhea 2008 ? Cholelithiasis 05/30/2015 ? Coronary artery disease involving [place] coronary artery of guid[place]le heart with angina pectoris (HCC) 10/05/2017 ? Epigastric pain 05/30/2015 ? Hypertension, essential 10/05/2017 ? Psoriasis 11/13/1990 ? Rotator cuff tear 06/22/2011 ? STEMI (ST elevation myocardial infarction) (HCC) 09/28/2017 ? Tobacco use disorder 06/19/2009 ? Ventral hernia 06/07/2013 ? Ventral hernia, unspecified, without mention of obstruction or gangrene 07/16/13 ? ? PAST?SURGICAL?HISTORY PAST SURGICAL HISTORY Procedure Laterality Date ? CORONARY STENT EA VESSEL ? 09/28/2017 ? Resolute Integrity, distal RCA, proximal LAD ? LAPAROSCOPIC CHOLEYCYSTECTOMY ? 05/30/15 ? PAST SURGICAL HISTORY OF ? 08/17/11 ? Rt shoulder arthoscopic bicep tenotomy & reverse decompression ? REPAIR INCISIONAL HERNIA,REDUCIBLE ? 07/16/13 ? ? CURRENT?MEDICATIONS ? Current Outpatient Medications: atorvastatin (LIPITOR) 40 mg tablet Take 1 tablet by mouth daily at bedtime. For cholesterol. carvedilol (COREG) 3.125 mg tablet Take 1 tablet by mouth twice daily. lisinopril (ZESTRIL, PRINIVIL) 10 mg tablet Take 1 tablet by mouth once daily. aspirin, enteric coated (ADULT LOW DOSE ASPIRIN) 81 mg EC tablet Take 1 tablet by mouth once daily. peg 3350-Electrolytes (GOLYTELY) 236-22.74-6.74 -5.86 gram suspension Take 4,000 mL by mouth one time only for 1 dose. ? No current facility-administered medications for this visit.? ? ALLERGIES:?Patient has no known allergies. ? PERSONAL HISTORY:? 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 FAMILY HISTORY:? FAMILY?HISTORY FAMILY HISTORY Problem Relation Age of Onset ? None Mother ? ? other (Unknown) Father ?not known ? Cancer Sister ?Breast Cancer ? Heart Brother ?CABG in his 30s ? None Brother ? ? None Brother ? ? REVIEW OF SYMPTOMS: ??The review of systems data was entered by the nurse and reviewed by me ? Nursing Notes: Nino Hernandez LPN ?01/05/2019 ?1:28 PM ?Signed REVIEW OF SYSTEMS: ?General:???The patient denies fatigue, denies weight loss, denies weight gain, denies feeling hot, and denies feelings of cold. ?Eyes: ?The patient denies glaucoma, denies eye injury/surgery, wears glasses or contacts. ?Ear/Nose/Throat: ?The patient denies allergies, denies hayfever, denies ear infections, and denies bloody noses. ?Cardiovascular: ?The patient denies chest pain, notes heart disease, notes high blood pressure,notes cardiac stent, notes prior heart attack, denies irregular heart beat, notes high cholesterol, ?denies poor circulation, denies heart failure, other cardiac issues, denies claudication, denies cold feet, denies peripheral arterial stent. ?Respiratory: ?The patient denies tuberculosis, denies pneumonia, denies frequent cough, denies pulmonary embolism, denies shortness of breath, and denies coughing up blood. ?Gastrointestinal: ?The patient denies difficulty swallowing, denies acid reflux, denies ulcers, denies vomiting, denies jaundice/hepatitis, denies gallbladder problems, denies black or tarry stools, denies hemorrhoids, denies bleeding from rectum, denies diverticulitis, denies constipation, denies diarrhea, denies loss of stool control, and denies hernias. ?Kidney/Bladder: ?The patient denies kidney stones, denies urine infections, and denies bloody urine. ?Skin: ?The patient denies a history of skin cancer, denies bleeding/changing moles, and denies a history of skin rash. ?Neurologic: ?The patient denies a history of epilepsy/convulsions, denies headaches, denies head/spinal injuries, and denies stroke/TIA. ?Psychiatric: ?The patient denies psychiatric medications, denies depression, and denies voices, denies substance abuse. ?Endocrine: ?The patient denies thyroid disorders, denies diabetes, and denies hormonal problems. ?Hematologic: ?The patient denies a history of bruising, denies bleeding, and denies anemia, denies blood clots. ?Infections: ?The patient denies a history of measles and mumps, denies rheumatic fever, and denies sexually transmitted diseases. ?Musculoskeletal: ?The patient denies back pain/injury, denies back problems, denies sciatica, denies knee/foot trouble, denies arthritis, or denies gout. ? I have confirmed and edited as necessary, the PFSH and ROS obtained by others. ? ? PHYSICAL EXAMINATION: ? General: ?The patient is 58 year old male, well nourished, well hydrated in no acute distress. ?The patient is oriented to time, place, and person. ? VITALS:?Blood pressure 136/82, pulse 74, temperature 36.6 ?C (97.8 ?F), height 175.3 cm (5' 9), weight 89.8 kg (198 lb), SpO2 98 %.?Body mass index is 29.24 kg/m?.? ? HEENT: ?Normal cephalic, ataumatic, pupils are equally round, sclera are anicteric, mucous membranes are moist, oropharynx is clear. ?Neck has no masses, asymmetry or lymphadenopathy. ? ? Respiratory: ?Clear to auscultation and percussion. ?Normal respiratory excursion and pattern. ? Cardiac: ?Examination is regular rate and rhythm. ?Normal S1/S2 ? Abdominal exam: ?Soft, nontender, ?with no palpable masses. ?No hepatosplenomegaly. ?No palpable hernias. ? Extremities: ?no clubbing, cyanosis or edema. ?No adenopathy. ? LABORATORY VALUES: As Noted ? RADIOLOGIC STUDIES: ?As Noted ? ? Assessment ? IMPRESSION:?encounter for screening colonoscopy. ?History of TN and stent placement 1 year ago ? ? PLAN:??Cardiac clearance received from Dr. Elias's office and scanned into [employer] ([facility] [employer]), Dr. Chowdhury has also spoken directly with Dr. Elias. ?Proceed with colonoscopy as scheduled. ?We discussed the risks and benefits of the planned endoscopy. ?I have informed the patient that complications can occur including failure to complete the endoscopy and perforation. ?The patient had the opportunity to ask questions concerning the planned endoscopy. ?My staff has also explained the procedure to the patient in understandable terms and has given the patient printed material concerning the procedure. ?The patient freely consents to surgery. ? I plan to use?Golytely?bowel preparation. ?Patient instructed to continue his routine medications for the procedure. ? We will plan for Monitored Anesthetic Care.? ? Patient verbalized understanding of all above and agreed with the plan. ? ? ? Diagnoses:?(Z12.11) Special screening for malignant neoplasm of colon ?(primary encounter diagnosis) (I25.2) History of ST elevation myocardial infarction (STEMI) ? ? Gissel Swenson PA-C
[2019-01-15 13:05] VITALS: BP 120/71; BP 135/92; PULSE 62; RESP 16; TEMP 36.2; O2SAT 100
--- NOTE | 2019-01-15 13:05 | OP.ENDO_ITS ---
01/15/2019 Evan Coronel [address] [facility] [place] [address] Re : Colonoscopy procedure for Branden Llamas Dear Dr. Coronel This procedure was performed on Tuesday, January 15, 2019. My impressions and recommendations are as follows: Impressions : - The entire examined colon is normal on direct and retroflexion views. - No specimens collected. Recommendations : - Discharge patient to home. - Resume previous diet. - Continue present medications. - Repeat colonoscopy in 10 years for screening purposes. My findings are described in the full procedure note, which is enclosed. If I can be of further assistance, please feel free to contact me at Doctor phone number(s): , Work: . Sincerely, Desmond Chowdhury MD 01/15/2019 1:04:59 PM This report has been signed electronically.
[2019-01-15 13:10] VITALS: BP 110/72; BP 135/92; PULSE 55; RESP 16; O2SAT 100
[2019-01-15 13:15] VITALS: BP 113/72; BP 135/92; PULSE 53; RESP 16; O2SAT 100
[2019-01-15 13:20] VITALS: BP 110/78; BP 135/92; PULSE 51; RESP 16; TEMP 36.2; O2SAT 100
[2019-01-15 14:24] VITALS: BP 135/92
== END 2019-01-15 14:15 | disposition home or self-care (01) ==
LOC: EN 11:15 → AC 11:33
PROVIDERS: Family Provider Internal Medicine; PCP Internal Medicine; Referring Provider Surgery; Visit Provider Surgery
PROC: 0DJD8ZZ Inspection of Lower Intestinal Tract, Via Natural or Artificial Opening Endoscopic (ICD-10-PCS; CPT 45378; principal; 2019-01-15 12:25)
DX: Z12.11 Encounter for screening for malignant neoplasm of colon (principal); I25.2 Old myocardial infarction; Z95.5 Presence of coronary angioplasty implant and graft; Z87.891 Personal history of nicotine dependence; I25.10 Atherosclerotic heart disease of native coronary artery without angina pectoris; I10 Essential (primary) hypertension
CPT/HCPCS: 45378; J7120

== ENCOUNTER → 2019-11-19 06:04 | Outpatient (CLI) | payer BC, SELFPAY ==
[2019-10-30 13:11] VITALS: BMI 29.5
--- NOTE | 2019-11-19 17:33 | STRESSREP ---
Stress Test Report Exercise myocardial perfusion stress test. 59-year-old man with a history of previous acute myocardial infarction status post angioplasty of the circumflex artery as well as the right coronary artery. Stress protocol: Resting EKG demonstrates normal sinus rhythm with a rate of 65 bpm normal intervals are noted resting blood pressures 112/82 mmHg. The patient exercised according to regular Brayden protocol for total duration of 6 minutes the maximum heart rate attained was 146 bpm which was 86% of maximum predicted heart rate the maximum workload was 7 metabolic equivalents. Patient maintained sinus rhythm throughout the recording. At rest there were no ST or T wave changes noted suggest ischemia. The resting blood pressures 112/82 mmHg the peak blood pressure 172/78 mmHg rate-pressure product was 24,700. The test was terminated due to the target heart rate being achieved as well as dyspnea. Myocardial perfusion protocol. 14.7 mCi of technetium 99m sestamibi was injected at rest. The patient exercised according to regular Brayden protocol for 6 minutes and at peak exercise 44.6 mCi of technetium 99m sestamibi was injected stress images were obtained stress and rest images were reconstructed and compared in the short axis vertical long horizontal long axis. Gated images were also obtained Perfusion SPECT analysis: Review of the stress images demonstrate normal uptake of tracer noted in all areas of the myocardium the resting images similar demonstrate normal uptake of tracer noted in all areas of myocardium. No reversibility is noted suggest ischemia. Gated SPECT analysis: The gated ejection fraction is 54%. Conclusion: Normal exercise myocardial perfusion stress test at a moderate workload. Preserved ejection fraction.
== END ==
LOC: CVS 06:05
PROVIDERS: PCP Internal Medicine; Referring Provider Internal Medicine Cardiovascular Disease; Visit Provider Internal Medicine Cardiovascular Disease
DX: I25.10 Atherosclerotic heart disease of native coronary artery without angina pectoris (principal); Z95.5 Presence of coronary angioplasty implant and graft
CPT/HCPCS: 78452; 93017; A9500; A4216

== ENCOUNTER → 2020-11-17 12:07 | Outpatient (CLI) | payer OTHER, SELFPAY ==
[2020-11-07 11:26] VITALS: BMI 29.6
[2020-11-17 13:19] LABS: AST(SGOT) 30 U/L (15-37); Alanine Aminotransfer ALT/SGPT 50 U/L (16-61); Alkaline Phosphatase 72 U/L (45-117); Bilirubin, Direct 0.23 mg/dL (0.00-0.30); Cholesterol 140 mg/dL (200); Globulin 3.3 g/dL (2.2-4.2); High Density Lipoprotein 37 mg/dL; Protein, Total 7.3 g/dL (6.4-8.2); Triglycerides 97 mg/dL; Very Low Density Lipoprotein 19 mg/dL (5-40)
== END ==
PROVIDERS: PCP Internal Medicine; Referring Provider Internal Medicine Cardiovascular Disease; Visit Provider Internal Medicine Cardiovascular Disease
DX: E78.5 Hyperlipidemia, unspecified (principal)
CPT/HCPCS: 36415; 80061; 80076

== ENCOUNTER 2021-11-10 11:28 | Outpatient (CLI) | payer BC, SELFPAY ==
[2021-11-10 12:17] LABS: Absolute Lymphocyte Count 3.06 X10^3/uL (0.83-4.51); Absolute Neutrophil Count 3.7 X10^3/uL (2.0-7.7); Basophil# 0.11 X10^3/uL; Basophil% 1.3 % (0-1); Eosinophil# 0.38 X10^3/uL; Eosinophils% 4.5 % (0-5); Hematocrit 47.7 % (40-54); Hemoglobin 16.3 g/dL (13.0-16.5); Lymphocyte # 3.06 X10^3/ul (0.83-4.51); Mean Corp Hgb Conc 34.2 g/dL (32-36); Mean Corpuscular Hgb 31.3 pg (27.0-32.0); Mean Corpuscular Volume 91.7 fL (80-94); Monocyte% 14.1 % (0-10); NRBC Flagged by Analyzer 0 % (0-5); Neutrophil % 43.5 % (47-70); Platelet Count 196 K/mm3 (150-450); RBC Distribution Width CV 13.2 % (11.6-14.6); RBC Distribution Width SD 44.9 fl (35.1-43.9); White Blood Count 8.5 K/mm3 (4.4-11.0)
[2021-11-10 13:08] LABS: AST(SGOT) 35 U/L (15-37); Alanine Aminotransfer ALT/SGPT 53 U/L (16-61); Albumin, Serum 3.9 g/dL (3.2-5.0); Alkaline Phosphatase 96 U/L (45-117); Anion Gap 9 (5-15); BUN 16 mg/dL (7-18); BUN/Creat Ratio 18.7 RATIO (10-20); Bilirubin, Direct < 0.05 mg/dL (0.00-0.30); Calcium,Total 8.4 mg/dL (8.5-10.1); Chloride 107 mmol/L (98-107); Cholesterol 133 mg/dL (200); Creatinine, Serum 0.86 mg/dL (0.70-1.30); EST Glomerular Filtration Rate 97 mL/min (>60); Est Glom Filt Rate - Afr Amer 118 mL/min (>60); Globulin 3.5 g/dL (2.2-4.2); Glucose 104 mg/dL (74-106); High Density Lipoprotein 34 mg/dL; Protein, Total 7.4 g/dL (6.4-8.2); Sodium Level 139 mmol/L (136-145); Triglycerides 85 mg/dL; Very Low Density Lipoprotein 17 mg/dL (5-40)
== END 2021-11-10 23:59 | disposition home or self-care (01) ==
PROVIDERS: PCP Internal Medicine; Referring Provider Physician Assistant Medical; Visit Provider Physician Assistant Medical
DX: E78.00 Pure hypercholesterolemia, unspecified (principal); I10 Essential (primary) hypertension; I25.10 Atherosclerotic heart disease of native coronary artery without angina pectoris
CPT/HCPCS: 36415; 80048; 80061; 80076; 85025

== ENCOUNTER 2022-08-10 13:57 | Emergency (ER) | payer BC, SELFPAY ==
[2022-08-10 13:58] VITALS: BP 170/96; PULSE 65; RESP 14; TEMP 36.2; O2SAT 100; BMI 29.6
--- NOTE | 2022-08-10 15:38 | EKG12_ITS ---
Test Reason : CP Blood Pressure : / mmHG Vent. Rate : 061 BPM Atrial Rate : 061 BPM P-R Int : 156 ms QRS Dur : 072 ms QT Int : 418 ms P-R-T Axes : 016 -09 015 degrees QTc Int : 420 ms Normal sinus rhythm Minimal voltage criteria for LVH, may be normal variant ( R in aVL ) Inferior infarct , age undetermined Abnormal ECG Confirmed by KAIDEN HO, GEOFFREY ([id number]), legal editor CESARIO RUBIO ([id number]) on 08/11/2022 9:17:46 AM Referred By: CASSIE Confirmed By:GEOFFREY RICHEY MD
--- NOTE | 2022-08-10 15:49 | EDS_ITS ---
HPI History of Present Illness Chief Complaint: Chest Pain Detail of Chief Complaint: Chest pain and esophageal food impaction Informant: patient Narrative Narrative: Patient presents to the emergency department after having an episode at a restaurant where he was eating and felt like food got stuck in his throat. Patient was eating beef tips and felt like it did not pass down into his stomach. Patient then try to drink water and could not swallow the water. Patient then started having chest discomfort and vomited multiple times he thinks maybe he got it up. Patient has never had this happen before. Patient does state that he takes a lot of Tums every day. He is never had an EGD. Patient denies black tarry stools. Currently he feels improved just has some mild soreness in the center of his chest. Patient does have history of coronary artery disease history with 2 cardiac stents placed about 4 or 5 years ago. Patient was feeling fine prior to the choking episode. [facility] Medical History (Updated 08/10/22 @ 15:[address] Morgan Valencia, ) Atherosclerotic heart disease of unga coronary artery without angina pectoris Chronic alcohol use Essential (primary) hypertension History of ST elevation myocardial infarction (STEMI) (09/28/17) Hyperlipidemia Nicotine dependence Obesity Home Medications aspirin 81 mg tablet,delayed release 81 mg PO DAILY@0800 09/30/17 [Rx Last Taken 01/15/19 10:00] atorvastatin 40 mg tablet 40 mg PO QHS 30 days #90 tabs 01/13/22 [Rx Last Taken Unknown] carvedilol 3.125 mg tablet 3.125 mg PO BID 60 days #180 tabs 01/13/22 [Rx Last Taken Unknown] amlodipine 2.5 mg tablet 2.5 mg PO DAILY #90 tabs 02/09/22 [Rx Last Taken Unknown] lansoprazole 30 mg delayed release,disintegrating tablet (Prevacid SoluTab) 30 mg PO DAILY 4 weeks #28 tabs 08/10/22 [Rx Last Taken Unknown] Allergy/AdvReac Type Severity Reaction Status Date / Time No Known Allergies Allergy Verified 08/10/22 13:58 Family History Brother CAD (coronary artery disease) Surgical History History of cholecystectomy History of coronary artery stent placement (09/28/17) Social History Smoking Status: Former smoker quit date: 09/28/17 pack-years: 35 alcohol intake: former year quit: 2018 ROS ROS ED Review of Systems ROS Unobtainable: other Constitutional Constitutional ED: Reports lethargy; Denies chills, fever(s), sweats or weight loss Eyes Eyes: Denies blurry vision, change in vision or diplopia ENT ENT ED: Denies rhinorrhea or sore throat Cardiovascular Cardiovascular: Reports chest pain; Denies orthopnea or racing heartbeat Respiratory/Chest Respiratory/Chest: Denies cough, dyspnea, dyspnea on exertion, orthopnea or sputum Gastrointestinal Gastrointestinal: Reports nausea and vomiting; Denies abdominal pain or diarrhea Genitourinary Genitourinary ED: Denies dysuria, hematuria or urinary frequency Musculoskeletal Musculoskeletal: Denies arthralgias, back pain, myalgias or neck pain Integumentary Denies abscess, Abrasions or rash Neurologic Neurologic: Denies headache(s) or weakness Psychiatric Psychiatric: Denies anxiety, depression or suicidal thoughts Endocrine Endocrinology: Denies polydipsia, polyphagia or polyuria Hematologic/Lymphatic Hematologic/Lymphatic: Denies easy bleeding, easy bruising or lymphadenopathy Allergic/Immunologic Allergic/Immunologic ED: Denies mouth swelling, tongue swelling or urticaria EXAM Physical Exam Const Vital Signs: 08/10/22 13:58 Temperature 97.1 F L Temperature Source Temporal Pulse Rate 65 Respiratory Rate 14 Blood Pressure 170/96 H Blood Pressure Mean 120 Pulse Ox 100 Oxygen Delivery Method Room Air Positive well nourished and well developed General Appearance ED: well developed and NAD HEENT Reports TM's clear and moist mucous membranes normocephalic and atraumatic; Negative for trauma or tenderness Tympanic Membrane ED: Yes TM's clear Eyes PERRL and EOMs intact bilaterally General Eye ED: Negative for pale conjunctiva or scleral icterus Neck no lymphadenopathy, supple and no JVD General: Negative for tenderness Chest Wall inspection of chest normal and palpation of chest normal Chest: Negative for tenderness Resp normal respiratory effort and clear to auscultation bilaterally Effort and Inspection: Negative for respiratory distress or pain with movement Auscultation: Negative for rhonchi, wheezes or diminished lung sounds Cardio regular rate, regular rhythm, S1 normal heart sound, S2 normal heart sound and no murmurs Peripheral Pulses: pulses 2+ throughout GI normal to inspection, nondistended, normoactive bowel sounds, soft to palpation, non-tender, non-distended and no masses Back/Spine no CVA tenderness and no thoracic nor lumbar tenderness Extremity normal to inspection General Extremety ED: Negative for edema General Extremity: Negative for edema Neuro oriented x3, CN's II-XII intact bilaterally, no sensory deficits noted and gait normal Sensorium / Orientation: awake, alert, oriented to person, oriented to place and oriented to time Motor Exam: strength 5/5 throughout and strength abnormal Psych mental status grossly normal Skin no rashes or lesions noted and no wounds MDM MDM MDM Narrative Medical decision making narrative: Patient was given Coca-Cola and he was able to drink it without difficulty. At this point I suspect a esophageal food impaction is resolved. An EKG was ordered by nursing staff on patient arrival which did show a sinus rhythm with a rate of 61 bpm with old inferior infarct otherwise no acute process noted on my interpretation. I do not feel patient is having acute coronary syndrome. Patient will be given referral to GI for follow-up for possible EGD. Patient also will be started on Prevacid. EKG Initial EKG: Comments: Sinus rhythm with a rate of 61 bpm with old infarct inferiorly otherwise nothing acute. Prior EKG tracings: available for review Prior: Changed Discharge Plan Triage Chief Complaint: Chest Pain ED Provider: Morgan Valencia Dx/Rx/DC Orders Clinical Impression: Food impaction of esophagus Instructions: ED Esophageal Foreign Body, Resolved Prescriptions: New lansoprazole [Prevacid SoluTab] 30 mg tablet,disintegrat, delay rel 30 mg PO DAILY 28 Days Qty: 28 0RF No Action amlodipine 2.5 mg tablet 2.5 mg PO DAILY Qty: 90 3RF aspirin 81 MG tablet 81 mg PO DAILY@0800 0RF atorvastatin 40 mg tablet 40 mg PO QHS 30 Days Qty: 90 4RF carvedilol 3.125 mg tablet 3.125 mg PO BID 60 Days Qty: 180 4RF Primary Care Provider: Evan Coronel Referrals: Toby Garcia DO [Med Staff - Active Staff] - 3-5 Days Evan Coronel MD [Primary Care Provider] - Disposition Disposition: Home, Self Care
[2022-08-10 15:57] VITALS: BP 152/89
[2022-08-10 15:58] VITALS: RESP 18
== END 2022-08-10 16:03 | disposition home or self-care (01) ==
LOC: ED 16:03
PROVIDERS: Emergency Provider Emergency Medicine; PCP Internal Medicine; Visit Provider Emergency Medicine
DX: T18.108A Unspecified foreign body in esophagus causing other injury, initial encounter (principal); I25.10 Atherosclerotic heart disease of native coronary artery without angina pectoris; Z87.891 Personal history of nicotine dependence; E78.5 Hyperlipidemia, unspecified; Y92.511 Restaurant or cafe as the place of occurrence of the external cause; R11.10 Vomiting, unspecified; I10 Essential (primary) hypertension
CPT/HCPCS: 93005; 99282

== ENCOUNTER → 2023-02-09 | Outpatient (CLI) | payer BC, SELFPAY ==
[2023-02-09 11:33] LABS: Absolute Lymphocyte Count 2.48 X10^3/uL (0.83-4.51); Absolute Neutrophil Count 3.6 X10^3/uL (2.0-7.7); Basophil# 0.11 X10^3/uL; Basophil% 1.5 % (0-1); Eosinophils% 4.1 % (0-5); Hematocrit 46.1 % (40-54); Hemoglobin 15.7 g/dL (13.0-16.5); Lymphocyte # 2.48 X10^3/ul (0.83-4.51); Lymphocyte % 33.5 % (19-41); Mean Corp Hgb Conc 34.1 g/dL (32-36); Mean Corpuscular Hgb 31.3 pg (27.0-32.0); Mean Platelet Vol. 10.7 fl (6.2-12.0); Monocyte# 0.93 X10^3/uL; Monocyte% 12.6 % (0-10); NRBC Flagged by Analyzer 0 % (0-5); Neutrophil # 3.56 X10^3/uL (2.7-7.7); Platelet Count 201 K/mm3 (150-450); RBC Distribution Width CV 13.4 % (11.6-14.6); RBC Distribution Width SD 45.6 fl (35.1-43.9); Red Blood Count 5.01 M/mm3 (4.6-6.2); White Blood Count 7.4 K/mm3 (4.4-11.0)
[2023-02-09 12:03] LABS: ALB/GLOB Ratio 1.2 RATIO (0.9-2.4); AST(SGOT) 32 U/L (15-37); Alanine Aminotransfer ALT/SGPT 42 U/L (16-61); Albumin, Serum 3.7 g/dL (3.2-5.0); Alkaline Phosphatase 102 U/L (45-117); Anion Gap 6 (5-15); BUN 16 mg/dL (7-18); BUN/Creat Ratio 17.7 RATIO (10-20); Calcium,Total 8.2 mg/dL (8.5-10.1); Chloride 111 mmol/L (98-107); Cholesterol 128 mg/dL (200); EST Glomerular Filtration Rate 91 mL/min (>60); Est Glom Filt Rate - Afr Amer 110 mL/min (>60); Globulin 3.1 g/dL (2.2-4.2); Glucose 116 mg/dL (74-106); High Density Lipoprotein 35 mg/dL; Potassium 4.1 mmol/L (3.5-5.1); Protein, Total 6.8 g/dL (6.4-8.2); Sodium Level 140 mmol/L (136-145); Triglycerides 100 mg/dL; Very Low Density Lipoprotein 20 mg/dL (5-40)
== END | disposition home or self-care (01) ==
LOC: LAB 11:08
PROVIDERS: PCP Internal Medicine; Referring Provider Physician Assistant Medical; Visit Provider Physician Assistant Medical
DX: E78.5 Hyperlipidemia, unspecified (principal); I25.10 Atherosclerotic heart disease of native coronary artery without angina pectoris; I10 Essential (primary) hypertension
CPT/HCPCS: 36415; 80053; 80061; 85025

== ENCOUNTER 2023-08-14 15:42 | Emergency (ER) | payer BC, SELFPAY ==
[2023-08-14 15:44] VITALS: BP 158/99; PULSE 75; RESP 18; TEMP 36.8; O2SAT 99; BMI 31.3
--- NOTE | 2023-08-14 16:17 | EDS_ITS ---
HPI <ALIREZA Zhu - Last Filed: 08/14/23 17:49> History of Present Illness Chief Complaint: Complaint Narrative Narrative: 62-year-old male with past medical history of urethral stricture status post surgery and subsequent dilation presents with urinary retention. He states it always takes about a half an hour to urinate a small amount but today he has not urinated at all and when he wiped the tip of his penis there was bright red blood. He has nausea but no abdominal or flank pain. No fever or chills. Dr. Sanchez did his prior surgeries but has retired. PFS <ALIREZA Zhu - Last Filed: 08/14/23 17:49> [facility] Medical History Atherosclerotic heart disease of [place] coronary artery without angina pectoris Chronic alcohol use Essential (primary) hypertension History of ST elevation myocardial infarction (STEMI) (09/28/17) Hyperlipidemia Nicotine dependence Obesity Home Medications aspirin 81 mg tablet,delayed release 81 mg PO DAILY@0800 09/30/17 [Rx Last Taken 01/15/19 10:00] lansoprazole 30 mg delayed release,disintegrating tablet (Prevacid SoluTab) 30 mg PO DAILY 4 weeks #28 tabs 08/10/22 [Rx Last Taken Unknown] atorvastatin 40 mg tablet 40 mg PO QHS 30 days #90 tabs 01/17/23 [Rx Last Taken Unknown] amlodipine 2.5 mg tablet 2.5 mg PO DAILY #90 tabs 02/16/23 [Rx Last Taken Unknown] carvedilol 3.125 mg tablet 3.125 mg PO BID 08/14/23 [History Last Taken Unknown] Allergy/AdvReac Type Severity Reaction Status Date / Time No Known Allergies Allergy Verified 08/14/23 15:44 Family History Brother CAD (coronary artery disease) Surgical History History of cholecystectomy History of coronary artery stent placement (09/28/17) Social History Smoking Status: Former smoker quit date: 09/28/17 pack-years: 35 alcohol intake: current alcohol intake frequency: 0-2 drinks per day substance use type: does not use caffeine: Yes Type: coffee Number of servings: 1 ROS <ALIREZA Zhu - Last Filed: 08/14/23 17:49> ROS ED ROS Narrative Constitutional: Negative for fever, chills, malaise. GI: Positive for nausea. Negative for abdominal pain, vomiting. : Negative for dysuria. EXAM <ALIREZA Zhu - Last Filed: 08/14/23 17:49> Physical Exam Narrative Exam Narrative: CONST: Patient sitting in no acute distress. EYES: Normal inspection. NECK: Normal inspection. RESP: No respiratory distress, CTAB. CVS: Regular rate and rhythm, no murmur, no gallop. ABD: Soft and nontender, no guarding or rebound, nondistended. SKIN: Color normal, no rash, warm, dry, intact. EXTREMITIES: Normal appearance, no pedal edema. NEURO: Oriented x4. PSYCH: Normal affect. Const Vital Signs: 08/14/23 15:44 Temperature 98.2 F Temperature Source Temporal Pulse Rate 75 Respiratory Rate 18 Blood Pressure 158/99 H Blood Pressure Mean 118 Pulse Ox 99 Oxygen Delivery Method Room Air <Kuldip Wilson MD - Last Filed: 08/14/23 19:25> Physical Exam Const Vital Signs: 08/14/23 15:44 Temperature 98.2 F Temperature Source Temporal Pulse Rate 75 Respiratory Rate 18 Blood Pressure 158/99 H Blood Pressure Mean 118 Pulse Ox 99 Oxygen Delivery Method Room Air MDM <ALIREZA Zhu - Last Filed: 08/14/23 17:49> MDM MDM Narrative Medical decision making narrative: History gathered from: Patient and Patient has history of urethral stricture and has acute on chronic urinary retention. He has not been able to go at all today. He appears well and nontoxic. Vital signs stable. Abdomen is soft and nontender. No CVA tenderness. Nurse was able to place a coud? catheter and he had over 800 cc output. There is some sediment and blood but it cleared. UA has red blood cells but no infection. BMP shows normal renal function. He was given a leg bag and urology referral and should follow-up this week. He was discharged in stable condition. Differential: Urethral stricture, UTI, TL Lab Data Attestation: I reviewed the patient's lab results. Labs: Laboratory Results - last 24 hr 08/14/23 08/14/23 16:00 16:55 Sodium 139 Potassium 3.8 Chloride 107 Carbon Dioxide 29.0 Anion Gap 3 L BUN 13 Creatinine 1.04 Estim Creat Clear Calc 73.08 Est GFR (MDRD) Af Amer 93 Est GFR (MDRD) Non-Af 77 BUN/Creatinine Ratio 12.5 Glucose 147 H Calcium 8.2 L Urine Color Yellow Urine Clarity Sl. Cloudy Urine pH 5.0 Ur Specific [place] 1.025 Urine Protein 30 H Urine Glucose (UA) Normal Urine Ketones Negative Urine Occult Blood 250 H Urine Nitrite Negative Urine Bilirubin Negative Urine Urobilinogen Normal Ur Leukocyte Esterase 25 H Urine RBC 50-100 SEEN Urine WBC 0-5 SEEN Ur Squamous Epith Cells 0-5 SEEN Amorphous Sediment 2+ URATE Urine Bacteria RARE Urine Mucus 0 SEEN <Kuldip Wilson MD - Last Filed: 08/14/23 19:25> MDM MDM Narrative Medical decision making narrative: History gathered from: Patient and Patient has history of urethral stricture and has acute on chronic urinary retention. He has not been able to go at all today. He appears well and nontoxic. Vital signs stable. Abdomen is soft and nontender. No CVA t enderness. Nurse was able to place a coud? catheter and he had over 800 cc output. There is some sediment and blood but it cleared. UA has red blood cells but no infection. BMP shows normal renal function. He was given a leg bag and urology referral and should follow-up this week. He was discharged in stable condition. Differential: Urethral stricture, UTI, TL Dr. Wilson: I have personally performed a face to face assessment of the patient and have reviewed the MANUEL Note. I performed a substantive portion of the visit including all aspects of the following. My barnett findings include: History is urinary retention with history of urethral stricture. Previous dilation. Exam is afebrile. Vital signs noted. Regular rate and rhythm. Lungs clear to auscultation bilaterally. Abdomen soft with minimal suprapubic discomfort. Medical Decision Making: Check BMP for creatinine, check UA for infection. Singh catheter inserted with return of 800 mL of urine. Patient will receive a Singh leg bag and follow-up with urology. I do not feel antibiotics are indicated. Return instructions reviewed. Disposition is discharged home in stable condition. Other additions or changes: [None] History & Record Review Discussion w/independent historian: Patient and Family Additional record(s) reviewed:: Prior ED visit Lab Data Labs: Laboratory Results - last 24 hr 08/14/23 08/14/23 16:00 16:55 Sodium 139 Potassium 3.8 Chloride 107 Carbon Dioxide 29.0 Anion Gap 3 L BUN 13 Creatinine 1.04 Estim Creat Clear Calc 73.08 Est GFR (MDRD) Af Amer 93 Est GFR (MDRD) Non-Af 77 BUN/Creatinine Ratio 12.5 Glucose 147 H Calcium 8.2 L Urine Color Yellow Urine Clarity Sl. Cloudy Urine pH 5.0 Ur Specific [place] 1.025 Urine Protein 30 H Urine Glucose (UA) Normal Urine Ketones Negative Urine Occult Blood 250 H Urine Nitrite Negative Urine Bilirubin Negative Urine Urobilinogen Normal Ur Leukocyte Esterase 25 H Urine RBC 50-100 SEEN Urine WBC 0-5 SEEN Ur Squamous Epith Cells 0-5 SEEN Amorphous Sediment 2+ URATE Urine Bacteria RARE Urine Mucus 0 SEEN Discharge Plan Triage Chief Complaint: Complaint ED Midlevel Provider: Vale Lee ED Provider: Kuldip Wilson Dx/Rx/DC Orders Clinical Impression: Acute on chronic urinary retention, Chronic urethral stricture Instructions: ED Singh Catheter, Care Prescriptions: No Action aspirin 81 MG tablet 81 mg PO DAILY@0800 0RF lansoprazole [Prevacid SoluTab] 30 mg tablet,disintegrat, delay rel 30 mg PO DAILY 28 Days Qty: 28 0RF carvedilol 3.125 mg tablet 3.125 mg PO BID Rx Instructions: must administer with a meal/food atorvastatin 40 mg tablet 40 mg PO QHS 30 Days Qty: 90 4RF amlodipine 2.5 mg tablet 2.5 mg PO DAILY Qty: 90 3RF Primary Care Provider: Evan Coronel Referrals: Viral Weaver MD [Med Staff - Active Staff] - Evan Coronel MD [Primary Care Provider] - Activity Restrictions/Additional Instructions: Call urology for appointment Disposition Disposition: Home, Self Care Discharge Date/Time: 08/14/23 17:45
[2023-08-14 16:48] LABS: Anion Gap 3 (5-15); BUN 13 mg/dL (7-18); BUN/Creat Ratio 12.5 RATIO (10-20); Calcium,Total 8.2 mg/dL (8.5-10.1); Chloride 107 mmol/L (98-107); Creatinine, Serum 1.04 mg/dL (0.70-1.30); EST Glomerular Filtration Rate 77 mL/min (>60); Est Glom Filt Rate - Afr Amer 93 mL/min (>60); Estimated Creatinine Clearance 73.08 ml/min; Glucose 147 mg/dL (74-106); Potassium 3.8 mmol/L (3.5-5.1); Sodium Level 139 mmol/L (136-145)
[2023-08-14 17:03] LABS: Mucous, Urine 0 SEEN /hpf (<or=2+)
[2023-08-14 17:06] LABS: Color, Urine Yellow (Yellow); Glucose, Dipstick Normal (Normal); Ketone-Dipstick Negative (Negative); Leukocyte Esterase-Dipstick 25 /ul (Negative); Nitrite-Dipstick Negative (Negative); Occult Blood-Urine 250 /ul (Negative); Protein-Dipstick 30 mg/dl (Negative); Specific Gravity, Urine 1.025 (1.002-1.030); Urine Bilirubin Dipstick Negative (Negative); Urine Clarity Sl. Cloudy (Clear); Urine Urobilinogen Normal (Normal)
[2023-08-14 17:13] LABS: Amorphous Sediment 2+ URATE; Bacteria RARE /hpf (None Seen); Red Blood Cells-Urine 50-100 SEEN /hpf (0-5); Squamous Epithelial Cells - UA 0-5 SEEN /hpf (0-5); White Blood Cells 0-5 SEEN /hpf (0-5)
[2023-08-14] MEDS: Ondansetron ODT 4 MG Tablet PO (17:37)
== END 2023-08-14 17:45 | disposition home or self-care (01) ==
PROVIDERS: Physician Assistant; Emergency Provider Emergency Medicine; PCP Internal Medicine; Visit Provider Emergency Medicine
DX: R33.8 Other retention of urine (principal); I25.10 Atherosclerotic heart disease of native coronary artery without angina pectoris; N35.919 Unspecified urethral stricture, male, unspecified site; E78.5 Hyperlipidemia, unspecified; I10 Essential (primary) hypertension; Z87.891 Personal history of nicotine dependence; I25.2 Old myocardial infarction; I5A Non-ischemic myocardial injury (non-traumatic); Z79.899 Other long term (current) drug therapy; Z79.82 Long term (current) use of aspirin; Z90.49 Acquired absence of other specified parts of digestive tract; Z95.5 Presence of coronary angioplasty implant and graft
CPT/HCPCS: 51702; 80048; 81001; 99284

== ENCOUNTER → 2023-12-05 | Outpatient (CLI) | payer BC, SELFPAY ==
[2023-12-05 17:01] LABS: PSA,Total - Annual Screen 0.31 ng/mL (0.00-4.00)
== END | disposition home or self-care (01) ==
LOC: LAB 15:34
PROVIDERS: PCP Internal Medicine; Referring Provider Urology; Visit Provider Urology
DX: Z12.5 Encounter for screening for malignant neoplasm of prostate (principal)
CPT/HCPCS: 36415; 84153; G0103

== ENCOUNTER → 2025-09-18 | Outpatient (CLI) | payer BC, SELFPAY ==
--- OUTSIDE RECORDS SUMMARY | 2025-09-18 08:55 | XMS RPT_ITS | CCD ---
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 Evan Lyels Primary Care Provider [phone] Dr. Evan Lyles Referring Provider [phone] Dana LAY, PA Kimberly Patricio Attending Provider Evan Lyles MD Primary Care Provider DR VIRAL LYN MD Attending Evan Lujan Referring Unavailable Evan Lyles Primary Care Unavailable Ammon Elias Attending Unavailable Viral Lyn Referring Unavailable Viral Lyn Attending Unavailable Evan Lyles Primary Care Unavailable Kuldip Wilson Attending Unavailable Evan Lyles Primary Care Unavailable Medications Current Medications Medication Drug Class(es) Dates Sig (Normalized) Sig (Original) aspirin 81 mg delayed release oral tablet (9 sources) Platelet Aggregation Inhibitor, Nonsteroidal Anti-inflammatory Drug Start: 09-30-2017 take 81 mg by mouth once daily Aspirin Active 81 MG PO DAILY@0800 September 30, 2017 1:00am Comment on above: Take 1 tablet by once daily. carvedilol 3.125 mg oral tablet (20 sources) alpha-Adrenergic Rishabh, beta-Adrenergic Rishabh Start: 08-14-2023 take 3.125 mg by mouth twice daily at mealtime Carvedilol Active 3.125 MG PO TWICE A DAY August 14, 2023 1:00am must administer with a meal/food Start: 09-30-2017 End: 02-09-2023 take 3.125 mg by mouth twice daily Carvedilol Discontinued 3.125 MG PO TWICE A DAY 180 60 January 17, 2023 3:39pm February 09, 2023 10:34am Comment on above: Take 1 tablet by yoly twice daily. ciprofloxacin 500 mg oral tablet (1 source) Quinolone Antimicrobial Start: 2021 End: 2021 ciprofloxacin HCl 500 mg tab(s) (CIPRO) lansoprazole 30 mg disintegrating oral tablet (4 sources) Proton Pump Inhibitor Start: 2021 take 1 tablet by mouth once daily Lansoprazole (Prevacid Solutab) 30 mg tablet,disintegrat, delay rel Active 30 MG PO DAILY August 10, 2022 1:00am 1000 ml sodium chloride 9 mg/ml injection (1 source) Start: 2021 End: 2021 inject 1 dose intravenously once 0.9 % sodium chloride (NACL 0.9%) infusion Inject 150 mL/hr intravenously one time only for 1 dose. Administer at rate defined per CT contrast administration specifications. To be provided with radiology test. 1 Each 0 07/09/2022 07/09/2022 Active Comment on above: Inject 150 mL/hr int ravenously one time only for 1 dose. Administer at rate defined per CT contrast administration specifications. To be provided with radiology test. Completed/Discontinued Medications Medication Drug Class(es) Dates Sig (Normalized) Sig (Original) amLODIPine 2.5 mg oral tablet (16 sources) Dihydropyridine Calcium Channel Rishabh Start: 11-10-2021 End: 02-16-2023 take 2.5 mg by mouth once daily Amlodipine Discontinued 2.5 MG PO DAILY 90 February 09, 2022 10:58am February 16, 2023 3:21pm Comment on above: Take 2.5 mg by mouth once daily. atorvastatin 40 mg oral tablet (20 sources) HMG-CoA Reductase Inhibitor Start: 09-30-2017 End: 01-17-2023 take 40 mg by mouth at bedtime Atorvastatin Discontinued 40 MG PO AT BEDTIME January 13, 2022 4:33pm January 17, 2023 3:39pm Comment on above: Take 1 tablet by yoly th daily at bedtime. For cholesterol. clopidogrel 75 mg oral tablet (4 sources) P2Y12 Platelet Inhibitor Start: 09-30-2017 End: 10-30-2019 take 75 mg by mouth once daily Clopidogrel Discontinued 75 MG PO DAILY September 30, 2017 1:00am October 30, 2019 2:12pm ibuprofen 600 mg oral tablet (4 sources) Nonsteroidal Anti-inflammatory Drug Start: 07-09-2013 End: 09-30-2017 take 600 mg by mouth every six hours as needed Ibuprofen Discontinued 600 MG PO EVERY 6 HOURS NEEDED July 09, 2013 12:00am September 30, 2017 10:18am iv contrast (will be provided with radiology test) (5 sources) Start: 07-09-2022 iv contrast (will be provided with radiology test) CT Urogram WO/W Inject, intravenously, once for 1 dose.No IV access, insert saline lock prior to the beginning of sedation, infusion, injection of imaging exam. Discontinue saline lock post exam. If Pt. has a central line or IVAD, may access for administration according to line specific nursing protocol. Once exam is complete flush line and de-access according to line specific nursing protocol in the CT contrast administration guidelines link. 1 Each 0 07/09/2022 Active Comment on above: CT Urogram WO/W Inje ct, intravenously, once for 1 dose.No IV access, insert saline lock prior to the beginning of sedation, infusion, injection of imaging exam. Discontinue saline lock post exam. If Pt. has a central line or IVAD, may access for administration according to line specific nursing protocol. Once exam is complete flush line and de-access according to line specific nursing protocol in the CT contrast administration guidelines link. lisinopril 10 mg oral tablet (20 sources) Angiotensin Converting Enzyme Inhibitor Start: 01-11-2019 End: 11-10-2021 take 10 mg by mouth once daily Lisinopril Discontinued 10 MG PO DAILY January 05, 2021 4:43pm November 10, 2021 12:19pm Start: 09-30-2017 End: 10-23-2018 take 10 mg by mouth once daily Lisinopril Discontinued 10 MG PO DAILY October 28, 2017 3:19pm October 23, 2018 1:08am Comment on above: Take 1 tablet by yoly th once daily. phenazopyridine hydrochloride 200 mg oral tablet (1 source) Start: take 1 tablet by mouth every eight hours as needed phenazopyridine (PYRIDIUM, GERIDIUM) 200 mg tablet Take 1 tablet by mouth three times daily as needed. 15 tablet 0 08/03/2022 Active Comment on above: Take 1 tablet by yoly th three times daily as needed. Problems Active Problems Problem Classification Problem Date Documented Da te Episodic/Chronic Coronary atherosclerosis and other heart disease (14 sources) Coronary atherosclerosis; Translations: [Atherosclerotic heart disease of campo coronary artery with unspecified angina pectoris] Onset: 09-28-2017 10-05-2017 Chronic Disorders of lipid metabolism (10 sources) Pure hypercholesterolem ia; Translations: [Pure hypercholesterolem ia, unspecified] Onset: 12-01-2017 10-06-2018 Chronic Essential hypertension (10 sources) Essential hypertension; Translations: [Essential (primary) hypertension] Onset: 10-05-2017 10-05-2017 Chronic Other circulatory disease (4 sources) Raynaud's disease; Translations: [Raynaud's syndrome without gangrene] 11-10-2021 Chronic Other circulatory disease (1 source) Raynaud's syndrome without gangrene; Translations: [Raynaud's syndrome] 02-09-2023 Chronic Other diseases of bladder and urethra (2 sources) Urethral stricture; Translations: [Chronic urethral stricture] 08-14-2023 Episodic Other inflammatory condition of skin (5 sources) Psoriasis; Translations: [Psoriasis, unspecified] Onset: 11-13-1990 07-25-2009 Chronic Other injuries and conditions due to external causes (4 sources) Food lodged in esophagus; Translations: [Food in esophagus causing other injury, initial encounter] 08-18-2022 Episodic Unclassified (1 source) Suspected COVID-19 virus infection; Translations: [Suspected COVID-19 virus infection] Onset: 10-05-2021 Past or Other Problems Problem Classification Problem Date Documented Da te Episodic/Chronic Genitourinary symptoms and ill-defined conditions (11 sources) Peña hematuria; Translations: [Gross hematuria] Onset: 07-19-2022 Episodic Other screening for suspected conditions (not mental disorders or infectious disease) (1 source) Encounter for screening for malignant neoplasm of prostate; Translations: [Encounter for screening for malignant neoplasm of prostate] Onset: 12-10-2023 Episodic Results Test Name Value Interpretation Reference Range Facility No Panel InformationOrdered By: Viral Lyn on 12-05-2023 Prostate Specific Antigen Screen 0.31 ng/mL 0.00-4.00 [facility] Comment on above: This test was perfor med using the TPSA assay method for theKRAFTWERK chemistry system. Values obtained with differentassay methods cannot be used interchangably.When changing PSA assays in the course of monitoring apatient, additional sequential testing should be carriedout to confirm baseline values. PSA,Total - Annual Screenon 12-05-2023 PSA,TOT SCREEN 0.31 ng/mL Normal 0.00-4.00 [facility] Comment on above: Result Comment: This test was performed using the TPSA assay method for the [employer]FTWERK chemistry system. Values obtained with different assay methods cannot be used interchangably. When changing PSA assays in the course of monitoring a patient, additional sequential testing should be carried out to confirm baseline values. Performed By: #### L [id number] #### [facility] [address] [place], [address] .Auto Diffon 08-16-2023 Basophil, Absolute 0.1 10 3/mcL Normal 0.0-0.2 [facility] ([place]) Comment on above: Performed By: #### C BC, ANEU, ADIFF, BMP, GFR #### [facility] [address] [address] Basophils/100 WBC (Bld) 1.0 % Normal 0.0-2.5 A [facility] ([place]) Comment on above: Performed By: #### C BC, ANEU, ADIFF, BMP, GFR #### [facility] [place] [id number] [place], [place] [address] Eosinophil, Absolute 0.3 10 3/mcL Normal 0.0-0.4 [facility] ([place]) Comment on above: Performed By: #### C BC, ANEU, ADIFF, BMP, GFR #### [address] [address] Eosinophils/100 WBC (Bld) 3.1 % Normal 0.0-7.0 [facility] ([place]) Comment on above: Performed By: #### C BC, ANEU, ADIFF, BMP, GFR #### [address] [address] Lymphocyte, Absolute 2.6 10 3/mcL Normal 0.8-3.9 [facility] ([place]) Comment on above: Performed By: #### C BC, ANEU, ADIFF, BMP, GFR #### [address] [address] Lymphocytes/100 WBC (Bld) 26.1 % Normal 10.0-50.0 [facility] ([place]) Comment on above: Performed By: #### C BC, ANEU, ADIFF, BMP, GFR #### [address] [address] Monocyte, Absolute 1.3 10 3/mcL High 0.2-1.0 [facility] ([place]) Comment on above: Performed By: #### C BC, ANEU, ADIFF, BMP, GFR #### [address] [address] Monocytes/100 WBC (Bld) 13.0 % Normal 1.7-13.0 A [facility] ([place]) Comment on above: Performed By: #### C BC, ANEU, ADIFF, BMP, GFR #### [address] [address] Neutrophils/100 WBC (Bld) 56.8 % Normal 37.0-80.0 [facility] ([place]) Comment on above: Performed By: #### C BC, ANEU, ADIFF, BMP, GFR #### [address] [address] .GFRon 08-16-2023 GFR 92 ml/min/1.73sqm Normal [facility] ([place]) Comment on above: Result Comment: GFR Population mean for , Non- Americans Ages 20-29 = 116 mL/min/1.73 sq.m. Ages 30-39 = 107 mL/min/1.73 sq.m. Ages 40-49 = 99 mL/min/1.73 sq.m. Ages 50-59 = 93 mL/min/1.73 sq.m. Ages 60-69 = 85 mL/min/1.73 sq.m. Ages 70+ = 75 mL/min/1.73 sq.m. Chronic Kidney Disease: Less than 60 mL/min/1.73 square meters End Stage Renal Disease: Less than 15 mL/min/1.73 square meters Performed By: #### C BC, ANEU, ADIFF, BMP, GFR #### [address] [address] GFR Non- 76 ml/min/1.73sqm Normal [facility] ([place]) Comment on above: Result Comment: GFR Population mean for , Non- Americans Ages 20-29 = 116 mL/min/1.73 sq.m. Ages 30-39 = 107 mL/min/1.73 sq.m. Ages 40-49 = 99 mL/min/1.73 sq.m. Ages 50-59 = 93 mL/min/1.73 sq.m. Ages 60-69 = 85 mL/min/1.73 sq.m. Ages 70+ = 75 mL/min/1.73 sq.m. Chronic Kidney Disease: Less than 60 mL/min/1.73 square meters End Stage Renal Disease: Less than 15 mL/min/1.73 square meters Performed By: #### C BC, ANEU, ADIFF, BMP, GFR #### [address] [address] .NEUABSon 08-16-2023 Neutrophil, Absolute 5.6 10 3/mcL Normal 2.9-6.2 [facility] ([place]) Comment on above: Performed By: #### C BC, ANEU, ADIFF, BMP, GFR #### [address] [address] BMPon 08-16-2023 BUN/Creatinine Ratio 11 ratio Normal 7-27 [facility] ([place]) Comment on above: Performed By: #### C BC, ANEU, ADIFF, BMP, GFR #### [address] [address] Calcium [Mass/Vol] 8.6 mg/dL Normal 8.4-10.2 [facility] ([place]) Comment on above: Performed By: #### C BC, ANEU, ADIFF, BMP, GFR #### [address] [address] Chloride [Moles/Vol] 103 mmol/L Normal 98-107 [facility] ([place]) Comment on above: Performed By: #### C BC, ANEU, ADIFF, BMP, GFR #### [place] [address] CO2 [Moles/Vol] 27 mmol/L Normal 23-31 [facility] ([place]) Comment on above: Performed By: #### C BC, ANEU, ADIFF, BMP, GFR #### [address] [address] Creatinine [Mass/Vol] 1.00 mg/dL Normal 0.70-1.30 [facility] ([place]) Comment on above: Performed By: #### C BC, ANEU, ADIFF, BMP, GFR #### [address] [address] Electrolyte Balance 9.0 mEq/L Normal 4.0-15.0 [facility] ([place]) Comment on above: Performed By: #### C BC, ANEU, ADIFF, BMP, GFR #### [address] [address] Glucose [Mass/Vol] 89 mg/dL Normal 80-115 [facility] ([place]) Comment on above: Performed By: #### C BC, ANEU, ADIFF, BMP, GFR #### [address] [address] Potassium [Moles/Vol] 4.4 mmol/L Normal 3.5-5.1 [facility] ([place]) Comment on above: Performed By: #### C BC, ANEU, ADIFF, BMP, GFR #### [address] [address] Sodium [Moles/Vol] 139 mmol/L Normal 136-145 [facility] ([place]) Comment on above: Performed By: #### C BC, ANEU, ADIFF, BMP, GFR #### [address] [address] Urea nitrogen [Mass/Vol] 11 mg/dL Normal 7-18 [facility] ([place]) Comment on above: Performed By: #### C BC, ANEU, ADIFF, BMP, GFR #### [address] [address] CBCon 08-16-2023 Erythrocyte distribution width (RBC) [Ratio] 14.3 % Normal 11.5-14.5 [facility] ([place]) Comment on above: Performed By: #### C BC, ANEU, ADIFF, BMP, GFR #### [place] [id number] Hematocrit (Bld) [Volume fraction] 49.6 % Normal 42.0-52.0 [facility] ([place]) Comment on above: Performed By: #### C BC, ANEU, ADIFF, BMP, GFR #### [place] [address] Hgb 16.7 G/dL Normal 14.0-18.0 [facility] ([place]) Comment on above: Performed By: #### C BC, ANEU, ADIFF, BMP, GFR #### [place] [id number] MCH (RBC) [Entitic mass] 31.0 pg Normal 27.0-31.2 [facility] ([place]) Comment on above: Performed By: #### C BC, ANEU, ADIFF, BMP, GFR #### [place] [id number] MCHC 33.8 G/dL Normal 31.8-35.4 [facility] ([place]) Comment on above: Performed By: #### C BC, ANEU, ADIFF, BMP, GFR #### [facility] [place] [address] [place], [place] [address] MCV (RBC) [Entitic vol] 91.7 fL Normal 80.0-94.0 A [facility] ([place]) Comment on above: Performed By: #### C BC, ANEU, ADIFF, BMP, GFR #### [place] [address] [place], [place] [address] Platelet 193 10 3/mcL Normal 130-400 [facility] ([place]) Comment on above: Performed By: #### C BC, ANEU, ADIFF, BMP, GFR #### [address] [address] Platelet mean volume (Bld) [Entitic vol] 9.3 fL Normal 7.4-10.4 [facility] ([place]) Comment on above: Performed By: #### C BC, ANEU, ADIFF, BMP, GFR #### [address] [address] RBC 5.41 10 6/mcL Normal 4.04-6.13 [facility] ([place]) Comment on above: Performed By: #### C BC, ANEU, ADIFF, BMP, GFR #### [address] [address] WBC 9.9 10 3/mcL Normal 4.6-10.8 [facility] ([place]) Comment on above: Performed By: #### C BC, ANEU, ADIFF, BMP, GFR #### [address] [address] Amorphous sediment detection in urine sediment by light microscopyOrdered By: Vale Lee on 08-14-2023 Amorphous sediment LM Ql (Urine sed) 2+ URATE [facility] Basic Metabolic Profile (BMP )on 08-14-2023 BUN/CRE 12.5 RATIO Normal 10-20 [facility] Comment on above: Performed By: #### L 500.2500 #### [facility] [address] [place], [address] CA,Total 8.2 mg/dL Low 8.5-10.1 [facility] Comment on above: Performed By: #### L 500.2500 #### [facility] [address] [place], [address] ECRCL 73.08 ml/min Normal [facility] Comment on above: Performed By: #### L 500.2500 #### [facility] [address] [place], [address] EST GFR - AA 93 mL/min Normal >60 [facility] Comment on above: Result Comment: Afri can [place] GFR Calc Performed By: #### L 500.2500 #### [facility] [address] [place], [address] GAP 3 Low 5-15 [facility] Comment on above: Performed By: #### L 500.2500 #### [facility] [address] [place], [address] GFR/1.73 sq M.predicted among non-blacks MDRD (S/P/Bld) [Vol rate/Area] 77 mL/min/{1.73_m2} Normal >60 [facility] Comment on above: Result Comment: Non- GFR Calc Performed By: #### L 500.2500 #### [facility] [address] [place], [address] Basic Metabolic Profile (BMP )Ordered By: Vale Lee on 08-14-2023 CO2 [Moles/Vol] 29.0 mmol/L Normal 21.0-32.0 [facility] Comment on above: Performed By: #### L 500.2500 #### [facility] [address] [place], [address] Basophil percentageOrdered B y: Vale Lee on 08-14-2023 Basophil percentage 0-5 SEEN /hpf 0-5 [facility] Chloride [Moles/Vol] 107 mmol/L Normal 98-107 [facility] Comment on above: Performed By: #### L 500.2500 #### [facility] [address] [place], [place], [address] Glucose [Mass/Vol] 147 mg/dL High 74-106 [facility] Comment on above: Fasting Glucose resu lt greater than or equal to 126 mg/dL suggests DIABETES MELLITUS per A.D.A. criteria. Result Comment: Fast ing Glucose result greater than or equal to 126 mg/dL suggests DIABETES MELLITUS per A.D.A. criteria. Performed By: #### L 500.2500 #### [facility] [address] [place], [place], [address] Potassium [Moles/Vol] 3.8 mmol/L Normal 3.5-5.1 [facility] Comment on above: Moderate Hemolysis, Result may be falsely increased. Result Comment: Mode rate Hemolysis, Result may be falsely increased. Performed By: #### L 500.2500 #### [facility] [address] [place], [place], [id number] Sodium [Moles/Vol] 139 mmol/L Normal 136-145 [facility] Comment on above: Performed By: #### L 500.2500 #### [facility] [address] [place], [place], [id number] Bilirubin Test strip Ql (U)O rdered By: Vale Lee on 08-14-2023 Bilirubin Ql (U) Negative Negative [facility] Emergency Department Summary on 08-14-2023 Emergency Department Summary [facility] Medical Records Department [address] [place] [address] Emergency Department Summary 08/14/23 MR#: [id number] Acct: [id number] Name: LAQUITA LAMAR Rep #: [id number] : 1960 62 From: Kuldip Wilson MD PCP: Dr. Evan Lyles MD Status:DEP ER Location: ED HPI History of Present Illness Chief Complaint: Complaint Narrative Narrative: 62-year-old male with past medical history of urethral stricture status post surgery and subsequent dilation presents with urinary retention. He states it always takes about a half an hour to urinate a small amount but today he has not urinated at all and when he wiped the tip of his penis there was bright red blood. He has nausea but no abdominal or flank pain. No fever or chills. Dr. Sanchez did his prior surgeries but has retired. [facility] Medical History Atherosclerotic heart disease of campo coronary artery without angina pectoris Chronic alcohol use Essential (primary) hypertension History of ST elevation myocardial infarction (STEMI) (09/28/17) Hyperlipidemia Nicotine dependence Obesity Home Medications aspirin 81 mg tablet,delayed release 81 mg PO DAILY@0800 09/30/17 [Rx Last Taken 01/15/19 10:00] lansoprazole 30 mg delayed release,disintegrating tablet (Prevacid SoluTab) 30 mg PO DAILY 4 weeks #28 tabs 08/10/22 [Rx Last Taken Unknown] atorvastatin 40 mg tablet 40 mg PO QHS 30 days #90 tabs 01/17/23 [Rx Last Taken Unknown] amlodipine 2.5 mg tablet 2.5 mg PO DAILY #90 tabs 02/16/23 [Rx Last Taken Unknown] carvedilol 3.125 mg tablet 3.125 mg PO BID 08/14/23 [History Last Taken Unknown] Allergy/AdvReac Type Severity Reaction Status Date / Time No Known Allergies Allergy Verified 08/14/23 15:44 Family History Brother CAD (coronary artery disease) Surgical History History of cholecystectomy History of coronary artery stent placement (09/28/17) Social History Smoking Status: Former smoker quit date: 09/28/17 pack-years: 35 alcohol intake: current alcohol intake frequency: 0-2 drinks per day substance use type: does not use caffeine: Yes Type: coffee Number of servings: 1 ROS ROS ED ROS Narrative Constitutional: Negative for fever, chills, malaise. GI: Positive for nausea. Negative for abdominal pain, vomiting. : Negative for dysuria. EXAM Physical Exam Narrative Exam Narrative: CONST: Patient sitting in no acute distress. EYES: Normal inspection. NECK: Normal inspection. RESP: No respiratory distress, CTAB. CVS: Regular rate and rhythm, no murmur, no gallop. ABD: Soft and nontender, no guarding or rebound, nondistended. SKIN: Color normal, no rash, warm, dry, intact. EXTREMITIES: Normal appearance, no pedal edema. NEURO: Oriented x4. PSYCH: Normal affect. Const Vital Signs: 08/14/23 15:44 Temperature 98.2 F Temperature Source Temporal Pulse Rate 75 Respiratory Rate 18 Blood Pressure 158/99 H Blood Pressure Mean 118 Pulse Ox 99 Oxygen Delivery Method Room Air Physical Exam Const Vital Signs: 08/14/23 15:44 Temperature 98.2 F Temperature Source Temporal Pulse Rate 75 Respiratory Rate 18 Blood Pressure 158/99 H Blood Pressure Mean 118 Pulse Ox 99 Oxygen Delivery Method Room Air MDM MDM MDM Narrative Medical decision making narrative: History gathered from: Patient and Patient has history of urethral stricture and has acute on chronic urinary retention. He has not been able to go at all today. He appears well and nontoxic. Vital signs stable. Abdomen is soft and nontender. No CVA tenderness. Nurse was able to place a coud??? catheter and he had over 800 cc output. There is some sediment and blood but it cleared. UA has red blood cells but no infection. BMP shows normal renal function. He was given a leg bag and urology referral and should follow-up this week. He was discharged in stable condition. Differential: Urethral stricture, UTI, TL Lab Data Attestation: I reviewed the patient's lab results. Labs: Laboratory Results - last 24 hr 08/14/23 08/14/23 16:00 16:55 Sodium 139 Potassium 3.8 Chloride 107 Carbon Dioxide 29.0 Anion Gap 3 L BUN 13 Creatinine 1.04 Estim Creat Clear Calc 73.08 Est GFR (MDRD) Af Amer 93 Est GFR (MDRD) Non-Af 77 BUN/Creatinine Ratio 12.5 Glucose 147 H Calcium 8.2 L Urine Color Yellow Urine Clarity Sl. Cloudy Urine pH 5.0 Ur Specific [place] 1.025 Urine Protein 30 H Urine Glucose (UA) Normal Urine Ketones Negative Urine Occult Blood 250 H Urine Nitrite Negative (more content not included)... Normal [facility] Ketones Test strip Ql (U)Ord ered By: Vale Lee on 08-14-2023 Ketones Ql (U) Negative Negative [facility] - Chemistry and C hemistry - challengeOrdered By: Vale Lee on 08-14-2023 Urea nitrogen/Creatinine [Mass ratio] 12.5 mg/mg 10-20 [facility] Mucus LM Ql (Urine sed)Order ed By: Vale Lee on 08-14-2023 Mucus Ql (Urine sed) 0 SEEN /hpf [facility] Nitrite Test strip Ql (U)Ord ered By: Valedeana Lee on 08-14-2023 Nitrite Ql (U) Negative Negative [facility] No Panel InformationOrdered By: Vale Lee on 08-14-2023 Estimated Creatinine Clearance Calc 73.08 ml/min [facility] Estimated GFR (MDRD) Amer 93 mL/min >60 [facility] Comment on above: GFR Calc Estimated GFR (MDRD) Non-Af Amer 77 mL/min >60 [facility] Comment on above: Non- GFR Calc Protein Test strip Ql (U)Ord ered By: Vale Lee on 08-14-2023 Protein Ql (U) 30 mg/dl Negative [facility] Serum or plasma calcium dev urement (mass/volume)Ordered By: Vale Lee on 08-14-2023 Calcium [Mass/Vol] 8.2 mg/dL 8.5-10.1 [facility] Serum or plasma creatinine m easurement (mass/volume)Ordered By: Vale Lee on 08-14-2023 Creatinine [Mass/Vol] 1.04 mg/dL Normal 0.70-1.30 [facility] Comment on above: The validity of the calculated GFR & GFRAA in patients over 70 years has not been determined. Clinical correlation is essential. Result Comment: The validity of the calculated GFR GFRAA in patients over 70 years has not been determined. Clinical correlation is essential. Performed By: #### L 500.2500 #### [facility] [address] [place], [place], [id number] Serum or plasma urea nitroge n measurement (mass/volume)Ordered By: Vale Lee on 08-14-2023 Urea nitrogen [Mass/Vol] 13 mg/dL Normal 7-18 [facility] Comment on above: Performed By: #### L 500.2500 #### [facility] [address] [place], [address] Squamous epithelial cells de tection in urine sediment by light microscopyOrdered By: Vale Lee on 08-14-2023 Epithelial cells.squamous LM Ql (Urine sed) 0-5 SEEN /hpf 0-5 [facility] Thin prep Papanicolaou smear with manual screeningOrdered By: Vale Lee on 08-14-2023 Thin prep Papanicolaou smear with manual screening 3 5-15 [facility] Urinalysis, Completeon 08-14 AMORPHOUS 2+ URATE Normal [facility] Comment on above: Order Comment: KAMERON CTOR TO SPECIFY Performed By: #### L 400.0001 #### [facility] [address] [place], [address] BACTERIA RARE Normal None Seen [facility] Comment on above: Order Comment: KAMERON CTOR TO SPECIFY Performed By: #### L 400.0001 #### [facility] [address] [place], [address] EPI,SQUAMOUS 0-5 SEEN Normal 0-5 [facility] Comment on above: Order Comment: KAMERON CTOR TO SPECIFY Performed By: #### L 400.0001 #### [facility] [address] [place], [address] RBC 50-100 SEEN Normal 0-5 [facility] Comment on above: Order Comment: KAMERON CTOR TO SPECIFY Performed By: #### L 400.0001 #### [facility] [address] [place], [address] WBC 0-5 SEEN Normal 0-5 [facility] Comment on above: Order Comment: KAMERON CTOR TO SPECIFY Performed By: #### L 400.0001 #### [facility] [address] [place], [address] Mucus Ql (Urine sed) 0 SEEN Normal [facility] Comment on above: Order Comment: KAMERON CTOR TO SPECIFY Performed By: #### L 400.0001 #### [facility] [place] [address], [address] Urine blood detectionOrdered By: Vale Lee on 08-14-2023 RBC Ql (U) 250 /ul Negative [facility] RBC Ql (U) 50-100 SEEN /hpf 0-5 [facility] Urine clarityOrdered By: Danielle Lee on 08-14-2023 Clarity (U) Sl. Cloudy Clear [facility] Urine color determinationOrd ered By: Vale Lee on 08-14-2023 Color (U) Yellow Yellow [facility] Urine glucose detectionOrder ed By: Vale Lee on 08-14-2023 Glucose Ql (U) Normal mg/dl Normal [facility] Urine leukocyte esterase det ection by dipstickOrdered By: Vale Lee on 08-14-2023 Leukocyte esterase Test strip Ql (U) 25 /ul Negative [facility] Urine pHOrdered By: Vale saul on 08-14-2023 pH (U) 5.0 [pH] 5.0 - 8.0 [facility] Urine sediment bacteria coun t by microscopy (number/high power field)Ordered By: Vale Lee on 08-14-2023 Bacteria LM.HPF (Urine sed) [#/Area] RARE /hpf None Seen [facility] Urine specific gravity measu rementOrdered By: Vale Lee on 08-14-2023 Specific gravity (U) [Rel density] 1.025 1.002-1.030 [facility] Urobilinogen Auto test strip Ql (U)Ordered By: Vale Lee on 08-14-2023 Urobilinogen Ql (U) Normal mg/dl Normal [facility] Absolute lymphocyte countOrd ered By: Kimberly Cortez on 02-09-2023 Lymphocytes Auto (Unsp spec) [#/Vol] 2.48 10*3/uL 0.83-4.51 [facility] Basophil percentageOrdered B y: Kimberly Cortez on 02-09-2023 Basophils/100 WBC (Bld) 1.5 % 0-1 [facility] Bilirubin [Mass/Vol] 0.40 mg/dL 0.20-1.00 [facility] Comment on above: For patients on eltr ombopag therapy, use of Dimension Clare TBIL is not recommended. Chloride [Moles/Vol] 111 mmol/L 98-107 [facility] Cholesterol [Mass/Vol] 128 mg/dL <200 [facility] Comment on above: <200 mg/dL Desirable 200-240 mg/dL Borderline >240 mg/dL High Risk Eosinophils/100 WBC (Bld) 4.1 % 0-5 [facility] Glucose [Mass/Vol] 116 mg/dL 74-106 [facility] Comment on above: Fasting Glucose resu lt from 100 to 125 mg/dL suggests IMPAIRED HOMEOSTASIS per A.D.A. criteria. Neutrophils (Bld) [#/Vol] 3.6 10*3/uL 2.0-7.7 [facility] Neutrophils/100 WBC (Bld) 48.0 % 47-70 [facility] Potassium [Moles/Vol] 4.1 mmol/L 3.5-5.1 [facility] Comment on above: Slight Hemolysis, Re sult may be falsely increased. Protein [Mass/Vol] 6.8 g/dL 6.4-8.2 [facility] Sodium [Moles/Vol] 140 mmol/L 136-145 [facility] Triglyceride [Mass/Vol] 100 mg/dL <199 [facility] Comment on above: The drugs N-Acetylcy steine and Metamizole may falsely depress this assay.Serum Triglycerides Reference Interval Normal <150 mg/dL Borderline high 150 - 199 mg/dL High 200 - 499 mg/dL Very High > or = 500 mg/dL WBC (Bld) [#/Vol] 7.4 10*3/uL 4.4-11.0 [facility] Blood erythrocytes count (nu mber/volume)Ordered By: Kimberly Cortez on 02-09-2023 RBC (Bld) [#/Vol] 5.01 10*6/uL 4.6-6.2 [facility] Blood hemoglobin measurement (mass/volume)Ordered By: Kimberly Cortez on 02-09-2023 Hemoglobin (Bld) [Mass/Vol] 15.7 g/dL 13.0-16.5 [facility] Blood lymphocytes/100 leukoc ytesOrdered By: Kimberly Cortez on 02-09-2023 Lymphocytes/100 WBC (Bld) 33.5 % 19-41 [facility] Blood monocytes/100 leukocyt esOrdered By: Kimberly Cortez on 02-09-2023 Monocytes/100 WBC (Bld) 12.6 % 0-10 [facility] Blood platelet mean volumeOr dered By: Kimberly Cortez on 02-09-2023 Platelet mean volume (Bld) [Entitic vol] 10.7 fL 6.2-12.0 [facility] Determination of erythrocyte mean corpuscular volume (MCV)Ordered By: Kimberly Cortez on 02-09-2023 MCV (RBC) [Entitic vol] 92.0 fL 80-94 [facility] Hematocrit Auto (Bld) [Volum e fraction]Ordered By: Kimberly Cortez on 02-09-2023 Hematocrit (Bld) [Volume fraction] 46.1 % 40-54 [facility] - Chemistry and C hemistry - challengeOrdered By: Kimberly Cortez on 02-09-2023 ALP [Catalytic activity/Vol] 102 U/L 45-117 [facility] ALT [Catalytic activity/Vol] 42 U/L 16-61 [facility] CO2 [Moles/Vol] 23.0 mmol/L 21.0-32.0 [facility] Globulin (S) [Mass/Vol] 3.1 g/dL 2.2-4.2 [facility] Urea nitrogen/Creatinine [Mass ratio] 17.7 mg/mg 10-20 [facility] - Hematology and Cell countsOrdered By: Kimberly Cortez on 02-09-2023 Erythrocyte distribution width (RBC) [Entitic vol] 45.6 fL 35.1-43.9 [facility] Erythrocyte distribution width (RBC) [Ratio] 13.4 % 11.6-14.6 [facility] Immature granulocytes/100 WBC (Bld) 0.300 % 0.0-0.9 [facility] Comment on above: IG% - Immature Granu locytes (promyelocytes, myelocytes and metamyelocytes) > 1% indicates that a LEFT SHIFT is Present. MCH (RBC) [Entitic mass] 31.3 pg 27.0-32.0 [facility] Nucleated RBC/100 WBC (Bld) [Ratio] 0 % 0-5 [facility] MCHC Auto (RBC) [Mass/Vol]Or dered By: Kimberly Cortez on 02-09-2023 MCHC (RBC) [Mass/Vol] 34.1 g/dL 32-36 [facility] No Panel InformationOrdered By: Kimberly Cortez on 02-09-2023 Estimated GFR (MDRD) Amer 110 mL/min >60 [facility] Comment on above: GFR Calc Estimated GFR (MDRD) Non-Af Amer 91 mL/min >60 [facility] Comment on above: Non- GFR Calc Platelets bldOrdered By: Franky Cortez on 02-09-2023 Platelets (Bld) [#/Vol] 201 10*3/uL 150-450 [facility] Serum or plasma albumin dev urement (mass/volume)Ordered By: Kimberly Cortez on 02-09-2023 Albumin [Mass/Vol] 3.7 g/dL 3.2-5.0 [facility] Serum or plasma albumin/glob ulin mass ratioOrdered By: Kimberly Cortez on 02-09-2023 Albumin/Globulin [Mass ratio] 1.2 {ratio} 0.9-2.4 [facility] Serum or plasma calcium dev urement (mass/volume)Ordered By: Kimberly Cortez on 02-09-2023 Calcium [Mass/Vol] 8.2 mg/dL 8.5-10.1 [facility] Serum or plasma cholesterol in HDL measurement (mass/volume)Ordered By: Kimberly Cortez on 02-09-2023 Cholesterol in HDL [Mass/Vol] 35 mg/dL >40 [facility] Comment on above: The drugs N-Acetylcy steine and Metamizole may falsely depress this assay. Reference Range HDL <40 mg/dL Low HDL Cholesterol HDL >or= 60 mg/dL High HDL Cholesterol Serum or plasma cholesterol in VLDL measurement (mass/volume)Ordered By: Kimberly Cortez on 02-09-2023 Cholesterol in VLDL [Mass/Vol] 20 mg/dL 5-40 [facility] Serum or plasma creatinine m easurement (mass/volume)Ordered By: Kimberly Cortez on 02-09-2023 Creatinine [Mass/Vol] 0.90 mg/dL 0.70-1.30 [facility] Comment on above: The validity of the calculated GFR & GFRAA in patients over 70 years has not been determined. Clinical correlation is essential. Serum or plasma low density lipoprotein (LDL) cholesterol measurement (mass/volume)Ordered By: Kimberly Cortez on 02-09-2023 Cholesterol in LDL [Mass/Vol] 73 mg/dL 0-130 [facility] Serum or plasma urea nitroge n measurement (mass/volume)Ordered By: Kimberly Cortez on 02-09-2023 Urea nitrogen [Mass/Vol] 16 mg/dL 7-18 [facility] Thin prep Papanicolaou smear with manual screeningOrdered By: Kimberly Cortez on 02-09-2023 Thin prep Papanicolaou smear with manual screening 32 U/L 15- [facility] Comment on above: Slight Hemolysis, Re sult may be falsely increased. Thin prep Papanicolaou smear with manual screening 6 -15 [facility] CNOVon 08-03-2022 CNOV Office Visit (AKURFL ) LAQUITA LAMAR ([id number]) 1960 [address] Date Time Provider Department 08/03/22 1:00 PM MARIELENA CHRISTIAN During your visit today, we recorded the following information about you: Blood pressure Weight Height 128/76 90.7 kg 1.753 m Marielena Christian DO 08/03/2022 1:30 PM Signed CYSTOSCOPY PROCEDURE NOTE: Laquita Lamar is a 61 year old male who presents with hematuria gross for cystoscopy. Pt ID verified with patient: Yes Procedure verified with patient: Yes Procedure confirmed with physician and customer support representative: Yes Sign In History and Physical Exam reviewed and is unchanged. . Informed Consent Discussed: Yes. Risks, benefits, alternatives and personnel discussed with patient who consents to proceed. Sign in Communication: Completed Time Out: Team Confirms the Correct Patient, Correct Procedure; Cystoscopy, Correct Site and Site Marking, Correct Position (if applicable). Affirmation of Time Out: Yes Sign Out: Sign Out Discussion: Completed Physician: Marielena Christian DO A urinalysis was performed revealing no evidence of infection. The benefits, risks, alternatives of the cystoscopy procedure and personnel were discussed with the patient. The verbal consent was obtained and the patient agrees to proceed. Procedure: The patient was placed on the procedure table in the supine position and prepped and draped in the usual sterile fashion. He has a meatal stricture. Previously repaired. Using icicle this was dilated with lube. 2% Lidocaine Jelly was placed per urethra as an anesthetic in the standard fashion. Once adequate local anesthesia was achieved, the tip of the flexible cystoscope was carefully placed into the urethra under direct visual guidance. The scope was negotiated through the pendulous urethra to the level of the bulbar urethra with no evidence of stricture. The verumontanum came into view and the scope was negotiated through the prostatic urethra which showed evidence of bi lobar occlusive disease. The bladder was entered and careful patton endoscopy was carried out. The posterior, superior and lateral murdock and dome of the bladder were all well visualized and the scope was retroflexed upon itself. The findings were consistent with no evidence of bladder mucosal pathology. At the conclusion of the procedure, the flexible cystoscope was removed atraumatically. The patient tolerated the procedure without complications. Patient was given standard post-procedure instructions, and was directed to complete the course of oral antibiotics and increase oral fluid intake as directed. ASSESSMENT/PLAN: Gross hematuria CT urogram negative Meatal stricture - hx of meatotomy Pyridium F/U with Fara Christian DO Referring Provider: RENETTA BARRERA [[id number]] Allergies As of Date: 08/03/2022 (Not on File) Date Reviewed: 08/03/2022 Reviewed by: Marielena Christian DO - Fully Assessed Reason for Visit: Cystoscopy-1 [303] Primary Visit Diagnosis:Gross hematuria [R31.0] Other Visit Diagnosis:Burning with urination [R30.0] Order(s):ciprofloxacin HCl 500 mg tab(s) (CIPRO)Disp: Rfl: UA DIP, URINE (POC) [[id number]] Order #: [id number] #:[id number] phenazopyridine (PYRIDIUM, GERIDIUM) 200 mg tabletTake 1 tablet by mouth three times daily as needed.Disp: 15 tabletRfl: 0 Prescriptions as of 08/03/2022 - phenazopyridine (PYRIDIUM, GERIDIUM) 200 mg tablet Take 1 tablet by mouth three times daily as needed. - amLODIPine (NORVASC) 2.5 mg tablet Take 2.5 mg by mouth once daily. - iv contrast (will be provided with radiology test) CT Urogram WO/W Inject, intravenously, once for 1 dose.No IV access, insert saline lock prior to the beginning of sedation, infusion, injection of imaging exam. Discontinue saline lock post exam. If Pt. has a central line or IVAD, may access for administration according to line specific nursing protocol. Once exam is complete flush line and de-access according to line specific nursing protocol in the CT contrast administration guidelines link. - atorvastatin (LIPITOR) 40 mg tablet Take 1 tablet by mouth daily at bedtime. For cholesterol. - carvedilol (COREG) 3.125 mg tablet Take 1 tablet by mouth twice daily. - lisinopril (ZESTRIL, PRINIVIL) 10 mg tablet Take 1 tablet by mouth once daily. - aspirin, enteric coated (ASPIRIN, ENTERIC COATED) 81 mg EC tablet Take 1 tablet by mouth once daily. Facility-Administered Medications as of 08/03/2022 - ciprofloxacin HCl 500 mg tab(s) (CIPRO) Problem List As Of Date 08/03/2022 Noted Resolved Tobacco use disorder [F17.200] 06/19/2009 12/01/2017 Psoriasis [L40.9] 11/13/1990 Rotator cuff tear [M75.100] 06/22/2011 12/01/2017 Ventral hernia [K43.9] 06/07/2013 12/01/2017 Coronary artery disease involving campo jolly*10/05/2017 Hypertension, essential (more content not included)... Normal [facility] UA DIP, URINE (POC)on 2021 BILIRUBIN UA (POCT) Negative Negative [facility] CLARITY UA (POCT) Clear [facility] COLOR UA (POCT) Yellow [facility] GLUCOSE UA (POCT) Negative Negative mg/dL [facility] HEMOGLOBIN/BLOOD UA (POCT) Negative Negative [facility] KETONE UA (POCT) Negative Negative mg/dL [facility] LEUKOCYTES UA (POCT) Negative Negative [facility] NITRITE UA (POCT) Negative Negative [facility] PH UA (POCT) 6.5 4.5 - 8.0 [facility] Protein Ql (U) Negative Negative mg/dL [facility] SPECIFIC GRAVITY UA (POCT) 1.025 1.005 - 1.030 [facility] UROBILINOGEN UA (POCT) 1.0 E.U./dL Stephanie l E.U./dL [facility] CNPNon 07-19-2022 CNPN Telephone (UROLWS) LAQUITA LAMAR ([id number]) 1960 [place]* Date Time Provider Department 07/19/22 RENETTA BARRERA During your visit today, we recorded the following information about you: Doris Mccoy LPN 07/19/2022 1:10 PM Signed ----- Message from Renetta Barrera PA-C sent at 07/19/2022 12:55 PM EDT ----- No nephrolithiasis, ureterolithiasis, gross obstructive uropathy, or suspicious renal lesion. ? ISIS Gray, PAARIANE LPN 07/19/2022 1:14 PM Signed Called patient. Verified name and date of . Patient informed of results- verbalizes understanding. Doris Mccoy LPN Allergies As of Date: 07/19/2022 (No Known Allergies) Date Reviewed: 07/15/2022 Reviewed by: Doris Edward, RT(R) - Fully Assessed Reason for Visit: Results [95] Prescriptions as of 07/19/2022 - amLODIPine (NORVASC) 2.5 mg tablet Take 2.5 mg by mouth once daily. - iv contrast (will be provided with radiology test) CT Urogram WO/W Inject, intravenously, once for 1 dose.No IV access, insert saline lock prior to the beginning of sedation, infusion, injection of imaging exam. Discontinue saline lock post exam. If Pt. has a central line or IVAD, may access for administration according to line specific nursing protocol. Once exam is complete flush line and de-access according to line specific nursing protocol in the CT contrast administration guidelines link. - atorvastatin (LIPITOR) 40 mg tablet Take 1 tablet by mouth daily at bedtime. For cholesterol. - carvedilol (COREG) 3.125 mg tablet Take 1 tablet by mouth twice daily. - lisinopril (ZESTRIL, PRINIVIL) 10 mg tablet Take 1 tablet by mouth once daily. - aspirin, enteric coated (ASPIRIN, ENTERIC COATED) 81 mg EC tablet Take 1 tablet by mouth once daily. Problem List As Of Date 07/19/2022 Noted Resolved Tobacco use disorder [F17.200] 06/19/2009 12/01/2017 Psoriasis [L40.9] 11/13/1990 Rotator cuff tear [M75.100] 06/22/2011 12/01/2017 Ventral hernia [K43.9] 06/07/2013 12/01/2017 Coronary artery disease involving campo jolly*10/05/2017 Hypertension, essential [I10] 10/05/2017 Pure hypercholesterolemia [E78.00] 12/01/2017 Encounter Status:Closed by DORIS MCCOY LPN on 07/19/22 Normal [facility] CREATININE Don 07-19-2022 Creatinine [Mass/Vol] 0.94 mg/dL Normal 0.73-1.22 [facility] Comment on above: Order Comment: Speci men Type: BLOOD SPECIMENOrdering Facility: [facility] Address: [address] [place] [address] [place] [address] Performed By: #### C RET1 ####[facility] [id number] [place] [address] [place] ESTIMATED GLOMERULAR FILTRATION RATE 93 mL/min/1.73m??? Normal >=60 [facility] Comment on above: Order Comment: Speci men Type: BLOOD SPECIMENOrdering Facility: [facility] Address: [place] [address] Result Comment: Nicole mated Glomerular Filtration Rate (eGFR) is calculated using the 2020 CKD-EPI creatinine equation. This equation utilizes serum creatinine, sex, and age as parameters. The creatinine assay has traceable calibration to isotope dilution-mass spectrometry. Refer to KDIGO guidelines for clinical interpretation. In patients with unstable renal function, e.g. those with acute kidney injury, the eGFR may not accurately reflect actual GFR. Performed By: #### C RET1 ####[facility] [id number] [address] [place] [address] UROGRAM WO/W IVCONon 10-3 CT UROGRAM WO/W IVCON * * *Final Report* * * DATE OF EXAM: Jul 19 2022 11:43AM [facility] 0560 - CT UROGRAM WO/W IVCON / PROCEDURE REASON: Gross hematuria * * * * Physician Interpretation * * * * EXAMINATION: CT ABDOMEN AND PELVIS WITHOUT AND WITH IV CONTRAST, INCLUDING EXCRETORY PHASE IMAGING (CT UROGRAM) 3D RECONSTRUCTIONS CLINICAL HISTORY: Hematuria. TECHNIQUE: CT urogram protocol including unenhanced, renal parenchymal phase and excretory phase renal imaging was obtained following IV contrast. Normal saline was also administered IV. No oral contrast was given. 3D image post-processing was performed and archived at the request of the referring physician, on the CT scanner workstation without concurrent physician supervision. MQ: CTU_2 Contrast: IV: 100 ml of Omnipaque 350 IV Saline: 100 ml of 0.9% NACL Solution Oral Contrast: None CT Radiation dose: Integrated dose-length product (DLP) for this visit = 988 mGy*cm. CT Dose Reduction Employed: Automated exposure control(AEC) and iterative recon COMPARISON: 06/04/2013 RESULT: Kidneys and urinary tract: Right: There are no renal calculi or masses. The opacified calices, renal pelvis and ureter are normal without dilation, filling defect, or stricture. Left: There are no renal calculi or masses. The opacified calices, renal pelvis and ureter are normal without dilation, filling defect, or stricture. Bladder: No filling defect, calculus, focal or diffuse wall thickening. Abdomen and Pelvis: Liver: No mass. Biliary: No bile duct dilation. Spleen: No mass. No splenomegaly. Pancreas: No mass or duct dilation. Adrenals: No mass. GI tract: No dilation or wall thickening. The appendix appears normal Lymph nodes: No abdominal or pelvic lymphadenopathy. Mesentery/Peritoneum: No ascites or mass. Retroperitoneum: No mass. Vasculature: The celiac axis and SMA are patent. The portal vein and branches, splenic vein, SMV, and hepatic veins are patent. Aorta is normal in caliber Pelvis: No mass, ascites or fluid collection. Bones and Soft Tissues: No significant finding. Lower thorax: Unremarkable. Demand Planning Manager (topogram) images: No additional findings. IMPRESSION: No nephrolithiasis, ureterolithiasis, gross obstructive uropathy, or suspicious renal lesion. Taper And Floater: [facility] Transcribe Date/Time: Jul 19 2022 11:58A Dictated by : THAD SARABIA MD This examination was interpreted and the report reviewed and electronically signed by: THAD SARABIA MD on Jul 19 2022 12:08PM EST [id number] Normal [facility] Harry 07-12-2022 CNPN Telephone (AKURFL) LAQUITA LAMAR ([id number]) 1960 [address] Date Time Provider Department 07/12/22 MARIELENA CHRISTIAN During your visit today, we recorded the following information about you: Tori Childs 07/12/2022 1:01 PM [facility]igned [facility] Christian 08/03/22 @ 1:00. His CT 07/19/22. Ashley Allergies As of Date: 07/12/2022 (No Known Allergies) Date Reviewed: 07/09/2022 Reviewed by: Doris Mccoy LPN - Fully Assessed Reason for Visit: Appointment [186] Prescriptions as of 07/12/2022 - amLODIPine (NORVASC) 2.5 mg tablet Take 2.5 mg by mouth once daily. - iv contrast (will be provided with radiology test) CT Urogram WO/W Inject, intravenously, once for 1 dose.No IV access, insert saline lock prior to the beginning of sedation, infusion, injection of imaging exam. Discontinue saline lock post exam. If Pt. has a central line or IVAD, may access for administration according to line specific nursing protocol. Once exam is complete flush line and de-access according to line specific nursing protocol in the CT contrast administration guidelines link. - atorvastatin (LIPITOR) 40 mg tablet Take 1 tablet by mouth daily at bedtime. For cholesterol. - carvedilol (COREG) 3.125 mg tablet Take 1 tablet by mouth twice daily. - lisinopril (ZESTRIL, PRINIVIL) 10 mg tablet Take 1 tablet by mouth once daily. - aspirin, enteric coated (ASPIRIN, ENTERIC COATED) 81 mg EC tablet Take 1 tablet by mouth once daily. Problem List As Of Date 07/12/2022 Noted Resolved Tobacco use disorder [F17.200] 06/19/2009 12/01/2017 Psoriasis [L40.9] 11/13/1990 Rotator cuff tear [M75.100] 06/22/2011 12/01/2017 Ventral hernia [K43.9] 06/07/2013 12/01/2017 Coronary artery disease involving campo jolly*10/05/2017 Hypertension, essential [I10] 10/05/2017 Pure hypercholesterolemia [E78.00] 12/01/2017 Encounter Status:Closed by TORI GIBSON on 07/12/22 Normal [facility] Bacteria Ur Culton 2 Bacteria identified Cx Nom (U) ORGANISM ID: 1 <10,000 CFU/ml Mixed microbiota Insignificant colony count. No further workup. Normal [facility] Comment on above: Performed By: #### 6 30-4 ####[facility] LABCLIA [id number] [address] [place] CNOVon 07-09-2022 CNOV Office Visit (UROLWS ) LAQUITA LAMAR ([id number]) 1960 M [facility] Date Time Provider Department 07/09/22 3:00 PM RENETTA BARRERA UROLWS During your visit today, we recorded the following information about you: Temperature Pulse Respiration Blood pressure 98.6 degrees 60/minute 16/minute 138/90 Weight Height 92.5 kg 1.753 m Doris Mccoy [facility] 07/09/2022 5:51 PM Signed Verified name and date of . CC Post Void Residual HPI: Laquita Lamar is a 61 year old male. The patient is here now for an appointment with ISIS Gray MT, PA-COV. Procedure: Explained procedure to patient and verbalizes understanding. Performed a PVR. Patient urinated and instructed to empty bladder as much as possible just prior to having PVR done using bladder ultrasound scanner. Results of scan: 0 mL The patient tolerated the procedure well. Plan: Appointment with Brandon. Renetta Barrera PA-C 07/09/2022 5:51 PM Signed [facility] ESTABLISHED PATIENT CLINIC NOTE Some elements copied from his previous note, which have been updated where appropriate, and all reflect current medical decision making from date of this visit. SERVICE DATE: 07/09/2022 SERVICE TIME: 3:40 PM NAME: Laquita Lamar CHIEF COMPLAINT: Gross Hematuria HISTORY OF PRESENT ILLNESS: Laquita Lamar is a 61 year old Male with PMH including Meatal Structure s/p meatotomy in 2019 and had a episode of gross hematuria presenting with dysuria And difficult with urination. The patient reports this has been sicne his surgery on meatus, and did not follow up after procedure because there was no post-op appt and thought it would improve, but did not then he pass a huge clot and then felt like he no urinates freely LUTS: DYSURIA: yes URGENCY: Yes FREQUENCY:5 per day NOCTURIA: 2 per night STRAINING TO VOID: Yes EMPTIES COMPLETELY: No UTI: No GROSS HEMATURIA: yes MICROSCOPIC HEMATURIA: no UA DIPSTICK POSITIVE ONLY: no Other symptoms: ED - no LABS: Hematocrit (%) Date Value 03/20/2019 48.2 11/04/2017 48.7 05/22/2015 48.6 PSA (ng/mL) Date Value 11/04/2017 0.34 No results found for: TESTOST MEDICATIONS: amLODIPine (NORVASC) 2.5 mg tablet Take 2.5 mg by mouth once daily. atorvastatin (LIPITOR) 40 mg tablet Take 1 tablet by mouth daily at bedtime. For cholesterol. carvedilol (COREG) 3.125 mg tablet Take 1 tablet by mouth twice daily. aspirin, enteric coated (ASPIRIN, ENTERIC COATED) 81 mg EC tablet Take 1 tablet by mouth once daily. iv contrast (will be provided with radiology test) CT Urogram WO/W Inject, intravenously, once for 1 dose.No IV access, insert saline lock prior to the beginning of sedation, infusion, injection of imaging exam. Discontinue saline lock post exam. If Pt. has a central line or IVAD, may access for administration according to line specific nursing protocol. Once exam is complete flush line and de-access according to line specific nursing protocol in the CT contrast administration guidelines link. 0.9 % sodium chloride (NACL 0.9%) infusion Inject 150 mL/hr intravenously one time only for 1 dose. Administer at rate defined per CT contrast administration specifications. To be provided with radiology test. lisinopril (ZESTRIL, PRINIVIL) 10 mg tablet Take 1 tablet by mouth once daily. 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 (HCC) 10/05/2017 Epigastric pain 05/30/2015 Hypertension, essential 10/05/2017 Psoriasis 11/13/1990 Rotator cuff tear 06/22/2011 STEMI (ST elevation myocardial infarction) (HCC) 09/28/2017 Tobacco use disorder 06/19/2009 Ventral hernia 06/07/2013 Ventral hernia, unspecified, without mention of obstruction or gangrene 07/16/13 PAST SURGICAL HISTORY: PAST SURGICAL HISTORY Procedure Laterality Date CORONARY STENT EA VESSEL 09/28/2017 Resolute Integrity, distal RCA, proximal LAD CYSTOSCOPY 04/10/2020 LAPAROSCOPY SURG CHOLECYSTECTOMY 05/30/2015 PAST SURGICAL HISTORY OF 08/17/2011 Rt shoulder arthoscopic bicep tenotomy AND reverse decompression REPAIR FIRST ABDOMINAL WALL HERNIA 07/16/2013 FAMILY HISTORY: FAMILY HISTORY Problem Relation Age of Onset None Mother other (Unknown) Father not known Cancer Sister Breast Cancer Heart Brother CABG in his 30s None Brother None Brother SOCIAL HISTORY: Social Connections: Not on file REVIEW OF SYSTEMS: GENERAL: No fever, chills, weight loss, or fatigue. All other systems reviewed and are negative PHYSICAL EXAMINATION: Blood pressure 138/90, pulse 60, temperature 37 ?C (98.6 ?F), temperature source Tempor (more content not included)... [facility] CYTOLOGY NON-GYNon 2 CASE REPORT [facility] Comment on above: Order Comment: Speci men Type: FLUID SPECIMENOrdering Facility: [facility] Address: [address] [place], [place] [id number] Result Comment: [facility] Cytology Report Case: [id number] Authorizing Provider: Renetta Barrera PA-C Collected: 07/09/2022 03:47 PM Ordering Location: Urology Received: 07/09/2022 04:18 PM Pathologist: Deanna Sánchez MD Specimen: URINE VOIDED Performed By: #### C YTONON ####[facility] LABCLIA [id number] [address] [place] CLINICAL HISTORY gross hematuria Normal [facility] Comment on above: Order Comment: Speci men Type: FLUID SPECIMENOrdering Facility: [facility] Address: [address] [place], [place] [phone] Performed By: #### C YTONON ####[facility] LABCLIA [id number] [address] [place] FINAL DIAGNOSIS [facility] Comment on above: Order Comment: Speci men Type: FLUID SPECIMENOrdering Facility: [facility] Address: [address] [place] [address] Result Comment: A - URINE VOIDED Negative for high-grade urothelial carcinoma. Performed By: #### C YTONON ####[facility] LABCLIA [id number] [place] [address] [place] FINAL PERFORMING LAB Normal [facility] Comment on above: Order Comment: Speci men Type: FLUID SPECIMENOrdering Facility: [facility] Address: [address] [place] [address] Result Comment: Tech nical component, quality inspector screening performed at [facility], [address] [place] [address] CLIA# [id number] Diagnostic interpretation performed at [facility], [address] [place] [address] CLIA# [id number] Double Spindle Shaper Operator: Maximo Calhoun M.D. Performed By: #### C YTONON ####[facility] LABCLIA [id number] [address] [place] GROSS DESCRIPTION A. URINE VOIDED Normal [facility] Comment on above: Order Comment: Speci men Type: FLUID SPECIMENOrdering Facility: [facility] Address: [address] [place] [address] Result Comment: 10 c c clear yellow fluid. ThinPrep prepared. Performed By: #### C YTONON ####[facility] LABCLIA [id number] [place] [address] [place] UA DIP, URINE (POC)on 2021 BILIRUBIN UA (POCT) Negative Negative [facility] CLARITY UA (POCT) Clear [facility] COLOR UA (POCT) Yellow [facility] GLUCOSE UA (POCT) Negative Negative mg/dL [facility] HEMOGLOBIN/BLOOD UA (POCT) Negative Negative [facility] KETONE UA (POCT) Negative Negative mg/dL [facility] LEUKOCYTES UA (POCT) Negative Negative [facility] NITRITE UA (POCT) Negative Negative [facility] PH UA (POCT) 6.5 4.5 - 8.0 [facility] Protein Ql (U) Negative Negative mg/dL [facility] SPECIFIC GRAVITY UA (POCT) 1.025 1.005 - 1.030 [facility] UROBILINOGEN UA (POCT) 0.2 E.U./dL Stephanie l E.U./dL [facility] CNOVon 10-05-2021 CNOV Office Visit (UCWSTR ) LAQUITA LAMAR ([id number]) 1960 [place] Date Time Provider Department 10/05/21 1:00 PM SINAI GONZALES [facility] During your visit today, we recorded the following information about you: Temperature Pulse Respiration Blood pressure 98.1 degrees 93/minute 18/minute 120/84 Weight 88.5 kg Sinai Gonzales APRN.KENZIE 10/05/2021 1:15 PM Signed Subjective The history is provided by the patient. No educational director was used. HPI Laquita Lamar is a 60 year old male who presents today for CC of runny nose and cough for a 10 days, want to know if this was covid. has similar symptoms. States symptoms are improving since oset. He has had the following over the past 10 days. Symptoms include: Fever (?100.4F): Yes or Chills: No Cough: Yes Shortness of breath: No or Difficulty breathing: No Fatigue: Yes Muscle aches: Yes Headache: Yes New loss of smell or taste: No Sore throat: Yes Nasal congestion: Yes or Rhinorrhea: Yes Nausea: No or Vomiting: No Diarrhea: No OTC meds/remedies that patient has tried: OTC cold medicine. High risk category assessment Hypertension Coronary artery disease Exposures: Sick contacts? Yes Family or close contacts with confirmed/probable COVID-19 in last 14 days? No BP 120/84 Pulse 93 Temp 36.7 ?C (98.1 ?F) Resp 18 Wt 88.5 kg (195 lb) SpO2 95% BMI 28.80 kg/m? 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 HENT: Positive for sore throat. Negative for congestion, ear pain and sinus pain. Respiratory: Negative for cough, sputum production, shortness of breath and wheezing. Cardiovascular: Negative for chest pain. Musculoskeletal: Negative for myalgias. Neurological: Negative for headaches. Objective Physical Exam Vitals and nursing note reviewed. HENT: Head: Normocephalic and atraumatic. Right Ear: Tympanic membrane, ear canal and external ear normal. Left Ear: Tympanic membrane, ear canal and external ear normal. Nose: Mucosal edema, congestion and rhinorrhea present. Right Sinus: No maxillary sinus tenderness or frontal sinus tenderness. Left Sinus: No maxillary sinus tenderness or frontal sinus tenderness. Mouth/Throat: Pharynx: Uvula midline. No oropharyngeal exudate or posterior oropharyngeal erythema. Tonsils: No tonsillar abscesses. Cardiovascular: Rate and Rhythm: Normal rate and regular rhythm. Heart sounds: Normal heart sounds. Pulmonary: Effort: Pulmonary effort is normal. Breath sounds: Normal breath sounds. No decreased breath sounds, wheezing, rhonchi or rales. Lymphadenopathy: Head: Right side of head: No submental, submandibular, tonsillar or preauricular adenopathy. Left side of head: No submental, submandibular, tonsillar or preauricular adenopathy. Cervical: No cervical adenopathy. Right cervical: No superficial cervical adenopathy. Left cervical: No superficial cervical adenopathy. ASSESSMENT/PLAN: 1. Viral illness - ICD9: 079.99, ICD10: B34.9 - Discussed viral etiology and rationale for treatment. - Symptomatic treatment with prn analgesia - Supportive care with fluids and rest 2. Suspected COVID-19 virus infection - ICD9: V01.79, ICD10: Z20.822 Patient is past quarentine Testing ordered Comfort measures discussed - see patient instructions. When to seek higher level of care Notified in 24-48 hours with results, available on [facility] - COVID WITH FLUA+B, ROUTINE Diagnosis and treatment plan were discussed and questions were answered to the patient's satisfaction. Pt acknowledged understanding of concepts and follow up plan. Specific signs and symptoms that would indicate the need for higher level of care were discussed in detail warranting prompt ER evaluation. Sinai Gonzales APRN.KENZIE Gonzales APRN.MACHINE CLOTHING MAN 10/05/2021 1:02 PM Signed How to Manage Common Symptoms Associated with COVID for Adults Fever- Fe (more content not included)... [facility] COVID w FLU A+B Routon 10-05 Influenza A PCR Negative [facility] Comment on above: Performed By: #### C OVFLU ####[facility] [place], [place] [phone] Influenza B PCR Negative [facility] Comment on above: Performed By: #### C OVFLU ####[place] [id number] [place], [place] [phone] SARS-CoV-2 (COVID-19) RNA FABIEN+probe Ql (Unsp spec) UPPER RESPIRATORY TRACT SWAB [facility] Comment on above: Performed By: #### C OVFLU ####[address] [phone] SARS-CoV-2 (COVID-19) RNA FABIEN+probe Ql (Unsp spec) Positive for COVID19 (SARS CoV2) by RT-PCR or equivalent method. Critically abnormal Negative for COVID19 (SARS CoV2) by RT-PCR or equivalent method. [facility] Comment on above: Result Comment: This test was developed and its performance characteristics determined by [facility]'s [facility]. This test has been authorized by FDA under an Emergency Use Authorization (EUA). This test has been validated in accordance with the FDA's Guidance Document Policy for Diagnostics Testing in Laboratories Certified to Perform High Complexity Testing under CLIA prior to Emergency use Authorization for Coronavirus Disease 2019 during the Public Health Emergency issued on November 17, 2019. Test performed by [facility], [facility], [address] [place], [place] [address]. Performed By: #### C OVFLU ####[facility] [place], [place] [phone] ANES Leonor 04-10-2020 ANES POST HNO ID: [id number] Author: Nino Grant Service: Anesthesiology Author Type: Anesthesiologist Type: Anesthesia PostOp Filed: 04/10/2020 5:14 PM Note Text: POST ANESTHESIA EVALUATION NOTE SERVICE DATE: 04/10/2020 SERVICE TIME: : 1960 Vitals: 04/10/20131804/10/20 1625 Temp: 36.4 ?C (97.5 ?F) 36 ?C (96.8 ?F) 04/10/20131804/10/20 16204/10/20164404/10/20 1700 BP: 156/90 131/77 143/78 143/78 04/10/20131804/10/20 16204/10/20 16404/10/20 1700 Pulse: (!) 57 (!) 57 (!) 50 (!) 54 04/10/20131804/10/20 1625 04/10/20 16404/10/20 1700 Resp: 16 16 16 16 04/10/20 13104/10/20 1625 04/10/20 1645 04/10/20 1700 SpO2: 98% 100% 96% 96% Validated Vital Signs: Yes POST ANES STATUS: No apparent anesthetic complications. The patient is appropriately hydrated with stable respiratory and cardiovascular status. Patient has safe and adequate airway control. The patient has appropriate pain relief and no significant post operative nausea or vomiting. The patient has achieved baseline mental status. Intra-Operative Events: No Significant Anesthesia Events Further assessment by Anesthesia Service: None Other Remarks: SIGNATURE: Nino Grant MD PATIENT NAME: Laquita Lamar DATE: April 10, 2020 TIME: 5:14 PM PAGER/CONTACT #: [phone] [facility] ANES PREOPon 04-10-2020 ANES PREOP HNO ID: [id number] Author: Anshu Villalobos Service: ? Author Type: Physician Type: Anesthesia PreOp Filed: 04/10/2020 1:14 PM Note Text: ANESTHESIOLOGY DAY OF SURGERY NOTE SERVICE DATE: 04/10/2020 SERVICE TIME:13:11 : 1960 Procedure(s) (LRB): CYSTOSCOPY (N/A) MEATOTOMY (N/A) DIRECT URETHROTOMY VISUAL INTERNAL (N/A) Surgeon(s): Marielena Christian Estimated body mass index is 27.35 kg/m? as calculated from the following: Height as of 01/05/19: 175.3 cm (5' 9). Weight as of 03/23/19: 84 kg (185 lb 3.2 oz). Most recent hematocrit and potassium results: Hematocrit 48.2 03/20/2019 Potassium 4.2 11/20/2018 ANES DOS/PREOP NOTE: Vitals: There were no vitals filed for this visit. 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 (HCC) 10/05/2017 - Epigastric pain 05/30/2015 - Hypertension, essential 10/05/2017 - Psoriasis 11/13/1990 - Rotator cuff tear 06/22/2011 - STEMI (ST elevation myocardial infarction) (HCC) 09/28/2017 - Tobacco use disorder 06/19/2009 - Ventral hernia 06/07/2013 - Ventral hernia, unspecified, without mention of obstruction or gangrene 07/16/13 PAST SURGICAL HISTORY Procedure Laterality Date - CORONARY STENT EA VESSEL 09/28/2017 Resolute Integrity, distal RCA, proximal LAD - LAPAROSCOPIC CHOLEYCYSTECTOMY 05/30/15 - PAST SURGICAL HISTORY OF 08/17/11 Rt shoulder arthoscopic bicep tenotomy AND reverse decompression - REPAIR INCISIONAL HERNIA,REDUCIBLE 07/16/13 FAMILY HISTORY Problem Relation Age of Onset - None Mother - other (Unknown) Father not known - Cancer Sister Breast Cancer - Heart Brother CABG in his 30s - None Brother - None Brother Social History: Social History Tobacco Use - Smoking status: Former Smoker Packs/day: 0.50 Years: 30.00 Pack years: 15.00 Types: Cigarettes Last attempt to quit: 09/28/2017 Years since quittin.5 - Smokeless tobacco: Former User Types: Chew - Tobacco comment: Quit 09/28/2017 Substance Use Topics - Alcohol use: Yes Comment: Drinks red wine and beer - Drug use: No No current facility-administered medications on file prior to encounter. Current Outpatient Medications on File Prior to Encounter Medication Sig - ceFAZolin (ANCEF, KEFZOL) 1 gram injection Inject 2 g intravenously one time only for 1 dose. - atorvastatin (LIPITOR) 40 mg tablet Take 1 tablet by mouth daily at bedtime. For cholesterol. - carvedilol (COREG) 3.125 mg tablet Take 1 tablet by mouth twice daily. - lisinopril (ZESTRIL, PRINIVIL) 10 mg tablet Take 1 tablet by mouth once daily. - aspirin, enteric coated (ADULT LOW DOSE ASPIRIN) 81 mg EC tablet Take 1 tablet by mouth once daily. Current Facility-Administered Medications Medication Dose Route Frequency Provider Last Rate Last Dose - lactated ringers infusion 50 mL/hr INTRAVENOUS CONTINUOUS Waqar Brush Allergies: ALLERGIES No Known Allergies DOS EXAM: Adequate NPO status: Yes Anesthetic risks, benefits, alternatives, personnel and consent discussed: Yes Patient agrees to proceed: Yes Previous Anesthesia: No history of adverse event. Airway Assessment: MP 2; Neck ROM: Full ROM without neurologic symptoms; Airway Evaluation: Small Mouth Opening and Jack Present Symptoms of Sleep Apnea: Snoring, Hypertension, Age over 50 (59 year old) and Male gender Dentition: Poor dentition Multiple missing teeth Additional Physical Exam: Lungs: normal vesicular breath sounds Cardiac: normal S1 and S2; no rubs, no murmurs, and no gallops Additional Pertinent Findings: N/A Blood Products: Not anticipated for this procedure. Anesthetic Plan: General, Standard ASA Monitors Pain Management Plan: Parenteral or Oral ASA Class: 2 Other Medical Problems: None Chronic Beta Rishabh medication administered within 24 hours: Yes I have interviewed and examined the patient. I have reviewed the medical record and/or the pre-anesthesia evaluation, pertinent labs, and test results. Significant changes in the patient's condition since the History and Physical, not otherwise documented in primary service progress notes: No This contains updated information obtained within 48 hours of Surgery/Procedure. SIGNATURE: Anshu Villalobos MD PATIENT NAME: Laquita Lamar DATE: April 10, 2020 TIME: 1:11 PM CSN: [id number] [facility] HISTORY PHYSICALon 0 HISTORY PHYSICAL HNO ID: [id number] Author: Marielena Christian Service: Urology Author Type: Physician Type: HANDP Filed: 04/10/2020 3:24 PM Note Text: UPDATED HISTORY AND PHYSICAL EXAMINATION SERVICE DATE: 04/10/2020 SERVICE TIME: Marielena Christian DO, MBA PHYSICAL EXAM MUST BE COMPLETED ON ADMISSION The History and Physical (completed in the past 30 days) has been reviewed and the patient has been examined. The contents accurately reflect the patient's condition with the following additions or revisions since the HANDP was completed. Examination indicates no changes. This HANDP can be found in the attached. SIGNATURE: Marielena Christian DO, MBA PATIENT NAME: Laquita Lamar DATE: April 10, 2020 TIME: 3:23 PM PAGER: [facility] NURSING PROGon 04-10-2020 NURSING PROG HNO ID: [id number] Author: Faraz BeckRn) NINO Owens Service: Nursing Author Type: Registered Nurse Type: Nursing Progress Note Filed: 04/10/2020 6:07 PM Note Text: Pt up to bathroom gait steady,tolerated actinity well. Voided q/s returned to bed [facility] NURSING PROG HNO ID: [id number] Author: Marietta BeckRn) Matthews, RN Service: ? Author Type: Registered Nurse Type: Nursing Progress Note Filed: 04/10/2020 1:32 PM Note Text: Nursing Progress Note Patient Name: Laquita Lamar [place] [facility] [facility] [place] @1327 Pharmacy called and aware of need for carvedilol. States will deliver as soon as possible. Report off to NINO Be. Care relinquished. This note was completed by: Marietta Matthews RN [facility] OPERATIVE NOon 04-10-2020 OPERATIVE NO HNO ID: [id number] Author: Marielena Christian Service: Urology Author Type: Physician Type: Operative Report Filed: 04/10/2020 4:46 PM Note Text: OPERATIVE/PROCEDURE REPORT LOG ID: [id number] SURGERY/PROCEDURE DATE: 04/10/2020 INCISION/PROCEDURE START TIME: 3:43 PM INCISION CLOSE/PROCEDURE END TIME: 3:58 PM SURGEON(S)/PROCEDURALI ST(S) AND CRIMINAL ATTORNEY(S): Surgeon(s) and Role: * Marielena Christian - Primary No Additional Staff SURGERY/PROCEDURE(S): Cystoscopy, Meatotomy ANESTHESIA: General SURGERY/PROCEDURE DETAILS: Patient was brought to the operating room and received general anesthesia. He was placed in a dorsal lithotomy position. He was prepped and draped in the standard sterile fashion. Timeout was performed. He had a pinpoint meatal opening. Hemostat was placed on the ventral aspect at the meatus for compression necrosis. Once this was removed, this area was cut and the meatus was wide open. Chromic suture was placed on the edge for hemostasis. Cystoscope was entered into the meatus. There was a soft fossa stricture that was dilated with the scope. The urethra and bladder neck were normal. Prostate was non-obstructive. Bladder was entered and cystoscopy was performed. No lesions were found in the bladder. Bladder was drained. Patient was transferred to PACU in stable condition. PRE-OP/PRE-PROCEDURE DIAGNOSIS: Urethral stricture POST-OP/POST-PROCEDURE DIAGNOSIS: Same as Preop ESTIMATED BLOOD LOSS: 0 mls SPECIMENS: None IMPLANTABLE DEVICES: None DRAINS: None COMPLICATIONS: None PARTICIPATION IN SURGERY/PROCEDURE: I/primary surgeon/proceduralist performed the procedure with assistance. SIGNATURE: Marielena Christian DO, MBA PATIENT NAME: Laquita Lamar DATE: April 10, 2020 TIME: 4:31 PM PAGER/CONTACT #: [facility] PT EDon 04-10-2020 PT ED HNO ID: [id number] Author: Faraz BeckRn) NINO Owens Service: Nursing Author Type: Registered Nurse Type: Patient Education Filed: 04/10/2020 6:07 PM Note Text: POST OP LEARNING RESPONSE INSTRUCTION PROVIDED TO: Patient and family member METHOD OF INSTRUCTION: Written instruction - handouts Verbal instruction PATIENT / FAMILY RESPONSE: Verbalizes understanding of: POST-OPERATIVE INSTRUCTIONS-Correct actions to take to reduce postoperative complications FOLLOW-UP PLAN: Patient instructed to call with any further issues SUPPLEMENTAL MATERIAL: None REFERRAL (RECOMMENDATION): None Electronically Signed By: Faraz Owens RN In Department: [facility] SURGERY [facility] PT ED HNO ID: [id number] Author: Marietta BeckRn) NINO Matthews Service: ? Author Type: Registered Nurse Type: Patient Education Filed: 04/10/2020 1:25 PM Note Text: PRE OP LEARNING ASSESSMENT PROCEDURE/SURGERY: SURGERY: cystoscopy READINESS TO LEARN interested COGNITIVE ABILITY: Alert and oriented MOTIVATION TO LEARN: Interested FAMILY SUPPORT: Unable to assess - Family not present PATIENT LEARNS BEST BY: Individual Instruction Verbal Instruction FACTORS AFFECTING LEARNING: None PHYSICAL LIMITATIONS AFFECTING LEARNING: None Electronically Signed By: Marietta Matthews RN In Department: [facility] SURGERY [facility] HOSPon 03-27-2020 HOSP Patient:Laquita Lamar MRN: Height:5' 9(1.753 m) Weight:195 lb (88.451 kg) Outpatient Medications as of 04/10/20: atorvastatin (LIPITOR) 40 mg tablet carvedilol (COREG) 3.125 mg tablet lisinopril (ZESTRIL, PRINIVIL) 10 mg tablet aspirin, enteric coated (ADULT LOW DOSE ASPIRIN) 81 mg EC tablet Admission/Clinic Administered Medications as of 04/10/20: lactated ringers infusion ceFAZolin iv piggyback 2 g in D5W (iso-osmotic) 100 mL (ANCEF) Problem List: Psoriasis [L40.9] Coronary artery disease involving campo coronary artery of campo heart with angina pectoris (HCC) [I25.119] Hypertension, essential [I10] Pure hypercholesterolemia [E78.00] Allergies: No Known Allergies Date Verified:04/10/20 Lab Values No results within the last 30 days for the following basenames: K,HCT Progress Notes ([facility]): Neli Baltazar 04/09/2020 3:33 PM Addendum Patient returned call for surgery scheduling and confirmed 1:pm arrival time. Patient was given directives with the allowance of spouse coming to appointment with him with length of time of procedure. Per [facility] surgery area. Previous Version Progress Notes ([facility]): Deanna Childs 04/01/2020 10:22 AM Signed April 01, 2020 10:[address] DOS order sets for this patient at [facility]. I do not have the ability to enter them for that location. Thank you Deanna Pagan Normal [facility] Vital Signs Date Time Vital Sign Value Performing Clinician Jj bergeron 08-14-2023 15:44-0500 Body height 172.72 cm [facility] 08-14-2023 15:44-0500 Body mass index (BMI) [Ratio] 31.3 kg/m2 [facility] 08-14-2023 15:44-0500 Body temperature 98.2 [degF] [facility] 08-14-2023 15:44-0500 Body weight 93.34 kg [facility] 08-14-2023 15:44-0500 Diastolic blood pressure 99 mm[Hg] [facility] 08-14-2023 15:44-0500 Heart rate 75 /min [facility] 08-14-2023 15:44-0500 Respiratory rate 18 /min [facility] 08-14-2023 15:44-0500 SaO2% (BldA) [Mass fraction] 99 % [facility] 08-14-2023 15:44-0500 Systolic blood pressure 158 mm[Hg] [facility] 02-09-2023 10:30-0400 Body height 177.[address] Evan Lyles Work Phone: [facility] 02-09-2023 10:30-0400 Body mass index (BMI) [Ratio] 29.4 kg/m2 Dr. Evan Lyles Work Phone: [facility] 02-09-2023 10:30-0400 Body weight 92.[address] Evan Lyles Work Phone: [facility] 02-09-2023 10:30-0400 Diastolic blood pressure 86 mm[Hg] Dr. Evan Lyles Work Phone: [facility] 02-09-2023 10:30-0400 Heart rate 62 /min Dr. Evan Lyles Work Phone: [facility] 02-09-2023 10:30-0400 Respiratory rate 18 /min Dr. Evan Lyles Work Phone: [facility] 02-09-2023 10:30-0400 Systolic blood pressure 137 mm[Hg] Dr. Evan Lyles Work Phone: [facility] 08-10-2022 15:58-0500 Respiratory rate 18 /min [facility] Work Phone: 08-10-2022 15:57-0500 Diastolic blood pressure 89 mm[Hg] [facility] Work Phone: 08-10-2022 15:57-0500 Systolic blood pressure 152 mm[Hg] [facility] Work Phone: 08-10-2022 13:58-0500 Body height 177.8 cm [facility] Work Phone: 08-10-2022 13:58-0500 Body mass index (BMI) [Ratio] 29.6 kg/m2 [facility] Work Phone: 08-10-2022 13:58-0500 Body temperature 97.1 [degF] [facility] Work Phone: 08-10-2022 13:58-0500 Body weight 93.6 kg [facility] Work Phone: 08-10-2022 13:58-0500 Heart rate 65 /min [facility] Work Phone: 08-10-2022 13:58-0500 SaO2% (BldA) [Mass fraction] 100 % [facility] Work Phone: 08-03-2022 13:00-0500 Body height 175.3 cm Jayram Gino DO Work Phone: [facility] 08-03-2022 13:00-0500 Body weight 90.72 kg Jayram Gino DO Work Phone: [facility] 08-03-2022 13:00-0500 Diastolic blood pressure 76 mm[Hg] Jayram Gino DO Work Phone: [facility] 08-03-2022 13:00-0500 Systolic blood pressure 128 mm[Hg] Jayram Gino DO Work Phone: [facility] 07-09-2022 15:07-0400 Body height 175.3 cm Renetta Barrera PA-C Work Phone: [facility] 07-09-2022 15:07-0400 Body temperature 98.6 [degF] Renetta Barrera PA-C Work Phone: [facility] 07-09-2022 15:07-0400 Body weight 92.53 kg Renetta Barrera PA-C Work Phone: [facility] 07-09-2022 15:07-0400 Diastolic blood pressure 90 mm[Hg] Renetta Barrera PA-C Work Phone: [facility] 07-09-2022 15:07-0400 Heart rate 60 /min Renetta Barrera PA-C Work Phone: [facility] 07-09-2022 15:07-0400 Respiratory rate 16 /min Renetta Barrera PA-C Work Phone: [facility] 07-09-2022 15:07-0400 SaO2% (BldA) [Mass fraction] 98 % Renetta Barrera PA-C Work Phone: [facility] 07-09-2022 15:07-0400 Systolic blood pressure 138 mm[Hg] Renetta Barrera PA-C Work Phone: [facility] Encounters Encounter Date Encounter Type Care Provider Facility Start: 04-10-2024 ambulatory Evan Hathaway ty:[facility] Start: 12-05-2023 End: 12-05-2023 ambulatory [facility] Work Phone: Start: 12-05-2023 End: 12-05-2023 Patient encounter procedure [facility] Work Phone: Start: 12-05-2023 End: 12-05-2023 ambulatory Viral Lyn Facility:[facility] Start: 08-16-2023 End: 08-17-[address] VIRAL LYN MD Facility:[facility] Start: 08-14-2023 End: 08-14-2023 Emergency department patient visit [facility] Work Phone: Start: 02-09-2023 End: 02-09-[address] Evan Lyles Work Phone: [facility] Work Phone: Start: 02-09-2023 End: 02-09-[address] Evan Lyles Work Phone: [facility] Work Phone: Start: 08-10-2022 End: 08-10-2022 Emergency department patient visit [facility] Start: 08-03-2022 End: 08-03-2022 ambulatory MARIELENA CHRISTIAN Facility:[facility] Start: 08-03-2022 End: 08-03-2022 Patient encounter procedure Marielena Christian DO Work Phone: [facility] Comment on above: Gross hematuria (Montse lilly Dx); Burning with urination Start: 07-19-2022 Telephone encounter eRnetta pollard PA-C Work Phone: Urology Comment on above: Results Start: 07-19-2022 End: 07-19-2022 ambulatory RENETTA BARRERA Facility:[facility] Start: 07-19-2022 End: 07-19-2022 Subsequent hospital visit by physician [facility] (I-Stat) Work Phone: [facility] Comment on above: Gross hematuria [R31 .0] Start: 07-12-2022 Telephone encounter Homarwalter Nisilvana roman DO Work Phone: [facility] Comment on above: Appointment Start: 07-09-2022 End: 07-09-2022 ambulatory RENETTA BARRERA Facility:[facility] Start: 07-09-2022 End: 07-09-2022 Patient encounter procedure Renetta LAY-C Work Phone: Urology Comment on above: Gross hematuria (Montse lilly Dx); Burning with urination Start: 10-05-2021 End: 10-05-2021 ambulatory SINAI GONZALES Facility:[facility] Procedures Date Procedure Procedure Detail Performing Clinician Start: 08-03-2022 Urnls dip stick/tabl et rgnt auto w/o microscopy Grahamgwynwalter NiGino DO Work Phone: Start: 07-19-2022 Ct abdomen & pelvis w/o contrst 1/> body re Renetta LAY-C Work Phone: Start: 07-09-2022 Urnls dip stick/tabl et rgnt auto w/o microscopy Renetta LAY-C Work Phone: Start: 01-15-2019 Colonoscopy Renetta LAY-C Work Phone: Start: 11-20-2018 Lipid 1996 panel - S john or Plasma Ct (I-Stat) Work Phone: Start: 09-28-2017 History of placement of stent for coronary artery disease History of coronary artery stent placement Plan of Treatment Date Care Activity Detail Author Start: 01-15-2029 Colonoscopy COLONOSCOPY [facility] Start: 01-15-2029 COLORECTAL CANCER SCREENING CO LORECTAL CANCER SCREENING [facility] Start: 11-21-2023 Lipid 1996 panel - S john or Plasma Lipid Screening [facility] Start: 11-21-2023 LIPID SCREEN LIPID SCREEN [facility] Start: 08-14-[address] [facility] Start: 08-03-2023 BP CONTROLLED (<130/80) BP CON TROLLED (<130/80) [facility] Start: 05-20-2023 Covid-19 Vaccine () Covid-19 Vaccine () [facility] Start: 05-20-2023 Influenza vaccination Influenza Vacc ine (#1) [facility] Start: 11-10-2022 Hepatitis B surface antibody level LDL CHOLESTEROL [facility] Start: 11-04-2022 PROSTATE CANCER SCRE ENING DISCUSSION PROSTATE CANCER SCREENING DISCUSSION [facility] Start: 2022 RSV Vaccine (1 - 1-d ose 60+ series) RSV Vaccine (1 - 1-dose 60+ series) [facility] Start: 09-19-2022 Depression Assessment Depression Ass essment [facility] Start: 07-23-2022 Cystourethroscopy CYSTO.PANEND O Procedures Routine Gross hematuria Expected: 07/23/2022 (Approximate) [facility] Work Phone: Comment on above: Expected: 07/23/2022 (Approximate) Start: 07-16-2022 End: 09-15-2022 CREATININE BLD CREATININE BLD Lab Routine Gross hematuria Expected: 07/16/2022 (Approximate), Expires: 09/15/2022 [facility] Work Phone: Comment on above: Expected: 07/16/2022 (Approximate), Expires: 09/15/2022 Start: 05-20-2022 Influenza vaccination INFLUENZA (#1) [facility] Start: 11-20-2021 DIABETES SCREEN DIABETES SCREEN [facility] Start: 11-20-2021 Diabetes Screening Diabetes Screenin g [facility] Start: 09-25-2021 COVID-19 VACCINE (3 - Booster for Pfizer series) COVID-19 VACCINE (3 - Booster for Pfizer series) [facility] Start: 09-19-2021 DEPRESSION ASSESSMENT DEPRESSION ASS ESSMENT [facility] Start: 07-07-2021 Urine microalbumin profile [facility] Start: 03-23-2020 ANNUAL PCP TEAM IPHONE DEVELOPER RUTH DISEASE VISIT ANNUAL PCP TEAM CHRONIC DISEASE VISIT [facility] Start: 03-23-2020 BP CONTROLLED (<130/80) BP CON TROLLED (<130/80) [facility] Start: 2012 SHINGRIX VACCINE (1 of 2) NOLEN GRIX VACCINE (1 of 2) [facility] Start: 2007 COLOGUARD (FIT-DNA) COLOGUARD (FIT-D NA) [facility] Start: [address] [facility]HY [facility] Start: 2007 FECAL OCCULT BLOOD FECAL OCCULT BLOO D [facility] Start: 2007 SIGMOIDOSCOPY SIGMOIDOSCOPY [facility] Start: 1980 HIV SCREENING HIV SCREENING [facility] Bacteria identified in Urine by Culture URINE CULTURE Microbiology Routine Gross hematuria 07/09/2022 3:47 PM EDT [facility] Work Phone: End: 08-09-2023 Ct abdomen & pelvis w/o contrst 1/> body re CT UROGRAM WO/W IVCON Radiology Routine Gross hematuria 1 Occurrences starting 07/09/2022 until 08/09/2023 [facility] Work Phone: Comment on above: 1 Occurrences starti ng 07/09/2022 until 08/09/2023 CYTOLOGY NON-ANALYSIS SPECIALIST CYTOLOGY NON-GY N Lab Routine Gross hematuria 07/09/2022 3:47 PM EDT [facility] Work Phone: Patient Education [facility] Work Phone: Patient referral [facility] Work Phone: POST VOID RESIDUAL POST VOID RES IDUAL Procedures Routine Burning with urination Ordered: 07/09/2022 [facility] Work Phone: Comment on above: Ordered: 07/09/2022 [facility] Immunizations Immunization Date Immunization Notes Care Provider Dominique pack 10-06-2018 influenza virus vaccine, unspecified formulation Ct (I-Stat) Work Phone: [facility] 07-07-2011 tetanus toxoid, redu susan diphtheria toxoid, and acellular pertussis vaccine, adsorbed Renetta Barrera PA-C Work Phone: [facility] Work Phone: 08-19-1997 diphtheria and tetan us toxoids, adsorbed for pediatric use Renetta Barrera PA-C Work Phone: [facility] 12-23-1975 diphtheria, tetanus toxoids and acellular pertussis vaccine Renetta Barrera PA-C Work Phone: [facility] 12-23-1975 trivalent poliovirus vaccine, live, oral Renetta Barrera PA-C Work Phone: [facility] 12-14-1968 measles virus vaccine Joesph n Barrera PA-C Work Phone: [facility] 12-14-1968 vaccinia (smallpox) vaccine, diluted Renetta Barrera PA-C Work Phone: [facility] 02-28-1968 diphtheria, tetanus toxoids and acellular pertussis vaccine Renetta Barrera PA-C Work Phone: [facility] 02-28-1968 trivalent poliovirus vaccine, live, oral Renetta Barrera PA-C Work Phone: [facility] 10-18-1966 diphtheria, tetanus toxoids and acellular pertussis vaccine Renetta Barrera PA-C Work Phone: [facility] 10-18-1966 trivalent poliovirus vaccine, live, oral Renetta Barrera PA-C Work Phone: [facility] 08-28-1965 diphtheria, tetanus toxoids and acellular pertussis vaccine Renetta Barrera PA-C Work Phone: [facility] 08-28-1965 trivalent poliovirus vaccine, live, oral Renetta Barrera PA-C Work Phone: [facility] 05-22-1965 diphtheria, tetanus toxoids and acellular pertussis vaccine Renetta Barrera PA-C Work Phone: [facility] 05-22-1965 trivalent poliovirus vaccine, live, oral Renetta Barrera PA-C Work Phone: [facility] Payers Date Payer Category Payer Unknown [id number] 2023 Self-pay [id number] 2021 Unknown SURENDRA [employer]ITY IZAGURIREMaggie PPO [id number] 2021-Present [phone] [address] [place] [address] PPO [id number] 2019 Unknown [id number] 2011 Unknown [id number] 1962 Unknown [id number] Unknown [employer] [id number] Unknown [id number] Unknown [id number] Unknown [id number] Social History Date Type Detail Facility Start: 12-01-2017 End: 08-03-2022 Tobacco smoking status NHIS Ex-smoker [facility] Work Phone: End: 09-28-2017 History of tobacco use Current smoker [facility] Work Phone: End: 09-28-2017 History of tobacco use Cigarette Smoker [facility] Work Phone: Start: 12-01-2017 End: 08-24-2020 Cigarettes smoked current (pack per day) - Reported 0.5 [facility] Start: 12-01-2017 End: 08-03-2022 Tobacco use and exposure Former smokeless tobacco user [facility] Work Phone: History of tobacco use [facility] Work Phone: Start: 07-09-2022 End: 08-03-2022 Alcohol intake Current drinker of alcohol (finding) [facility] Start: 12-01-2017 End: 08-03-2022 Tobacco Comment Quit 09/28/2017 [facility] Start: 10-13-2018 Alcohol Comment Drinks red win e and beer [facility] Start: 1960 Sex Assigned At Not on file [facility] Start: 06-29-2022 End: 08-03-2022 Exposure to SARS-CoV-2 (event) Not sure [facility] Start: 08-10-2022 End: 08-14-2023 Tobacco smoking status NHIS Unknown if ever smoked [facility] Start: 09-28-2017 Heavy [facility] Start: 01-11-2019 Non-smoker [facility] Start: 1960 Sex Assigned At Male [facility] Start: 08-24-2020 End: 07-09-2022 Tobacco use panel [facility] National Score (1-10 0), lower number is lower risk Not on file [facility] Mental Status Date Assessment Result Facility 08-10-2022 Cognitive function Voice/Name [facility] Work Phone: Clinical Notes 06-07-2013 to 08-03-2022 Marielena Christian DO - 08/03/2022 1:25 PM ESTTelephone Encounter - Doris Mccoy [facility] - 07/19/2022 1:13 PM EDTTelephone Encounter - Doris Mccoy [facility] - 07/19/2022 1:10 PM EDT Note Date & Type Note Facility 08-03-2022 Note HNO ID: [id number] Author: Marielena Christian DO Service: ? Author Type: Physician Type: Procedures Filed: 08/03/2022 1:30 PM Note Text: CYSTOSCOPY PROCEDURE NOTE: Laquita Lamar is a 61 year old male who presents with hematuria gross for cystoscopy. Pt ID verified with patient: Yes Procedure verified with patient: Yes Procedure confirmed with physician and customer support representative: Yes Sign In History and Physical Exam reviewed and is unchanged. . Informed Consent Discussed: Yes. Risks, benefits, alternatives and personnel discussed with patient who consents to proceed. Sign in Communication: Completed Time Out: Team Confirms the Correct Patient, Correct Procedure; Cystoscopy, Correct Site and Site Marking, Correct Position (if applicable). Affirmation of Time Out: Yes Sign Out: Sign Out Discussion: Completed Physician: Marielena Christian DO A urinalysis was performed revealing no evidence of infection. The benefits, risks, alternatives of the cystoscopy procedure and personnel were discussed with the patient. The verbal consent was obtained and the patient agrees to proceed. Procedure: The patient was placed on the procedure table in the supine position and prepped and draped in the usual sterile fashion. He has a meatal stricture. Previously repaired. Using icicle this was dilated with lube. 2% Lidocaine Jelly was placed per urethra as an anesthetic in the standard fashion. Once adequate local anesthesia was achieved, the tip of the flexible cystoscope was carefully placed into the urethra under direct visual guidance. The scope was negotiated through the pendulous urethra to the level of the bulbar urethra with no evidence of stricture. The verumontanum came into view and the scope was negotiated through the prostatic urethra which showed evidence of bi lobar occlusive disease. The bladder was entered and careful patton endoscopy was carried out. The posterior, superior and lateral murdock and dome of the bladder were all well visualized and the scope was retroflexed upon itself. The findings were consistent with no evidence of bladder mucosal pathology. At the conclusion of the procedure, the flexible cystoscope was removed atraumatically. The patient tolerated the procedure without complications. Patient was given standard post-procedure instructions, and was directed to complete the course of oral antibiotics and increase oral fluid intake as directed. ASSESSMENT/PLAN: Gross hematuria CT urogram negative Meatal stricture - hx of meatotomy Pyridium F/U with Fara Christian DO [facility] 08-03-2022 Procedure note Procedure(s): CYSTOSCOPY Pre-Procedure Diagnose(s): Gross hematuria Post-Procedure Diagnose(s): Gross hematuria CYSTOSCOPY PROCEDURE NOTE: Laquita Lamar is a 61 year old male who presents with hematuria gross for cystoscopy. Pt ID verified with patient: Yes Procedure verified with patient: Yes Procedure confirmed with physician and customer support representative: Yes Sign In History and Physical Exam reviewed and is unchanged. . Informed Consent Discussed: Yes. Risks, benefits, alternatives and personnel discussed with patient who consents to proceed. Sign in Communication: Completed Time Out: Team Confirms the Correct Patient, Correct Procedure; Cystoscopy, Correct Site and Site Marking, Correct Position (if applicable). Affirmation of Time Out: Yes Sign Out: Sign Out Discussion: Completed Physician: Marielena Christian DO A urinalysis was performed revealing no evidence of infection. The benefits, risks, alternatives of the cystoscopy procedure and personnel were discussed with the patient. The verbal consent was obtained and the patient agrees to proceed. Procedure: The patient was placed on the procedure table in the supine position and prepped and draped in the usual sterile fashion. He has a meatal stricture. Previously repaired. Using icicle this was dilated with lube. 2% Lidocaine Jelly was placed per urethra as an anesthetic in the standard fashion. Once adequate local anesthesia was achieved, the tip of the flexible cystoscope was carefully placed into the urethra under direct visual guidance. The scope was negotiated through the pendulous urethra to the level of the bulbar urethra with no evidence of stricture. The verumontanum came into view and the scope was negotiated through the prostatic urethra which showed evidence of bi lobar occlusive disease. The bladder was entered and careful patton endoscopy was carried out. The posterior, superior and lateral murdock and dome of the bladder were all well visualized and the scope was retroflexed upon itself. The findings were consistent with no evidence of bladder mucosal pathology. At the conclusion of the procedure, the flexible cystoscope was removed atraumatically. The patient tolerated the procedure without complications. Patient was given standard post-procedure instructions, and was directed to complete the course of oral antibiotics and increase oral fluid intake as directed. ASSESSMENT/PLAN: Gross hematuria CT urogram negative Meatal stricture - hx of meatotomy Pyridium F/U with Fara Christian DO documented in this encounter [facility] 07-19-2022 Miscellaneous Notes Called patient. Verified name and date of . Patient informed of results- verbalizes understanding. Doris Mccoy LPN ----- Message from Renetta Barrera PA-C sent at 07/19/2022 12:55 PM EDT ----- No nephrolithiasis, ureterolithiasis, gross obstructive uropathy, or suspicious renal lesion. [facility] Gray MT, PA-C documented in this encounter [facility] 07-19-2022 Note HNO ID: [id number] Author: RT Noemi(R) Service: ? Author Type: Drawbench Operator Helper Type: Progress Notes Filed: 07/19/2022 12:05 PM Note Text: Radiology Service Progress Note DATE OF SERVICE: July 19, 2022 TIME: 12:04 PM PATIENT IDENTITY VERIFICATION COMPLETED USING TWO (2) STANDARD IDENTIFIERS: Name and Date of confirmed by patient verbally. FALL SCREENING: Has the patient had 2 falls in the last year or 1 fall with injury or currently using an Ambulatory Assistive Device (Walker, Cane, Wheelchair, Crutches, etc.)? No PATIENT GENDER DATA: Male PATIENT RELEVANT IMPLANT DATA REVIEWED: Yes ALLERGIES: Reviewed and unchanged CONTRAST ALLERGY: NO. EXAM: CT -CONTRAST INDUCED NEPHROPATHY RISK FACTORS: Not applicable CREATININE: Creatinine Date Value Ref Range Status 07/19/2022 0.94 0.73 - 1.22 mg/dL Final 11/20/2018 1.06 0.73 - 1.22 mg/dL Final 11/04/2017 1.03 0.73 - 1.22 mg/dL Final Estimated Glomerular Filtration Rate Date Value Ref Range Status 07/19/2022 93 >=60 mL/min/1.73m? Final Comment: Estimated Glomerular Filtration Rate (eGFR) is calculated using the 2020 CKD-EPI creatinine equation. This equation utilizes serum creatinine, sex, and age as parameters. The creatinine assay has traceable calibration to isotope dilution-mass spectrometry. Refer to KDIGO guidelines for clinical interpretation. In patients with unstable renal function, e.g. those with acute kidney injury, the eGFR may not accurately reflect actual GFR. eGFR- Date Value Ref Range Status 11/20/2018 >60 Final P.O.C.T. RESULTS: POC done: Yes, See Lab Tab July 19, 2022 TREATMENT: N/A PERIPHERAL IV DATA: Ambulatory: A peripheral IV was started in the Left antecubital site with a Angio cath: 22 gauge. RADIOLOGY DEPARTMENT: CT; Exam(s) Completed: split bolus urogram SIGNATURE: RT Kane(R) PATIENT NAME: Laquita Lamar DATE: July 19, 2022 TIME: 12:04 PM [facility] 07-19-2022 History of Present illness Narrative Radiology Service Progress Note DATE OF SERVICE: July 19, 2022 TIME: 12:04 PM PATIENT IDENTITY VERIFICATION COMPLETED USING TWO (2) STANDARD IDENTIFIERS: Name and Date of confirmed by patient verbally. FALL SCREENING: Has the patient had 2 falls in the last year or 1 fall with injury or currently using an Ambulatory Assistive Device (Walker, Cane, Wheelchair, Crutches, etc.)? No PATIENT GENDER DATA: Male PATIENT RELEVANT IMPLANT DATA REVIEWED: Yes ALLERGIES: Reviewed and unchanged CONTRAST ALLERGY: NO. EXAM: CT -CONTRAST INDUCED NEPHROPATHY RISK FACTORS: Not applicable CREATININE: Creatinine Date Value Ref Range Status 07/19/2022 0.94 0.73 - 1.22 mg/dL Final 11/20/2018 1.06 0.73 - 1.22 mg/dL Final 11/04/2017 1.03 0.73 - 1.22 mg/dL Final Estimated Glomerular Filtration Rate Date Value Ref Range Status 07/19/2022 93 >=60 mL/min/1.73m Final Comment: Estimated Glomerular Filtration Rate (eGFR) is calculated using the 2020 CKD-EPI creatinine equation. This equation utilizes serum creatinine, sex, and age as parameters. The creatinine assay has traceable calibration to isotope dilution-mass spectrometry. Refer to KDIGO guidelines for clinical interpretation. In patients with unstable renal function, e.g. those with acute kidney injury, the eGFR may not accurately reflect actual GFR. eGFR- Date Value Ref Range Status 11/20/2018 >60 Final P.O.C.T. RESULTS: POC done: Yes, See Lab Tab July 19, 2022 TREATMENT: N/A PERIPHERAL IV DATA: Ambulatory: A peripheral IV was started in the Left antecubital site with a Angio cath: 22 gauge. RADIOLOGY DEPARTMENT: CT; Exam(s) Completed: split bolus urogram SIGNATURE: RT Kane(R) PATIENT NAME: Laquita Lamar DATE: July 19, 2022 TIME: 12:04 PM documented in this encounter [facility] 07-12-2022 Miscellaneous Notes [facility] 08/03/22 @ 1:00. His CT 07/19/22. Ashley documented in this encounter [facility] 07-09-2022 Note HNO ID: [id number] Author: Renetta Barrera PA-C Service: ? Author Type: Physician Traveling Phlebotomist Type: Progress Notes Filed: 07/09/2022 5:51 PM Note Text: [facility] EST[facility]LISHED PATIENT CLINIC NOTE Some elements copied from his previous note, which have been updated where appropriate, and all reflect current medical decision making from date of this visit. SERVICE DATE: 07/09/2022 SERVICE TIME: 3:40 PM NAME: Laquita Lamar CHIEF COMPLAINT: Gross Hematuria HISTORY OF PRESENT ILLNESS: Laquita Lamar is a 61 year old Male with PMH including Meatal Structure s/p meatotomy in 2019 and had a episode of gross hematuria presenting with dysuria And difficult with urination. The patient reports this has been sicne his surgery on meatus, and did not follow up after procedure because there was no post-op appt and thought it would improve, but did not then he pass a huge clot and then felt like he no urinates freely LUTS: DYSURIA: yes URGENCY: Yes FREQUENCY:5 per day NOCTURIA: 2 per night STRAINING TO VOID: Yes EMPTIES COMPLETELY: No UTI: No GROSS HEMATURIA: yes MICROSCOPIC HEMATURIA: no UA DIPSTICK POSITIVE ONLY: no Other symptoms: ED - no LABS: Hematocrit (%) Date Value 03/20/2019 48.2 11/04/2017 48.7 05/22/2015 48.6 PSA (ng/mL) Date Value 11/04/2017 0.34 No results found for: TESTOST MEDICATIONS: amLODIPine (NORVASC) 2.5 mg tablet Take 2.5 mg by mouth once daily. atorvastatin (LIPITOR) 40 mg tablet Take 1 tablet by mouth daily at bedtime. For cholesterol. carvedilol (COREG) 3.125 mg tablet Take 1 tablet by mouth twice daily. aspirin, enteric coated (ASPIRIN, ENTERIC COATED) 81 mg EC tablet Take 1 tablet by mouth once daily. iv contrast (will be provided with radiology test) CT Urogram WO/W Inject, intravenously, once for 1 dose.No IV access, insert saline lock prior to the beginning of sedation, infusion, injection of imaging exam. Discontinue saline lock post exam. If Pt. has a central line or IVAD, may access for administration according to line specific nursing protocol. Once exam is complete flush line and de-access according to line specific nursing protocol in the CT contrast administration guidelines link. 0.9 % sodium chloride (NACL 0.9%) infusion Inject 150 mL/hr intravenously one time only for 1 dose. Administer at rate defined per CT contrast administration specifications. To be provided with radiology test. lisinopril (ZESTRIL, PRINIVIL) 10 mg tablet Take 1 tablet by mouth once daily. 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 (HCC) 10/05/2017 Epigastric pain 05/30/2015 Hypertension, essential 10/05/2017 Psoriasis 11/13/1990 Rotator cuff tear 06/22/2011 STEMI (ST elevation myocardial infarction) (HCC) 09/28/2017 Tobacco use disorder 06/19/2009 Ventral hernia 06/07/2013 Ventral hernia, unspecified, without mention of obstruction or gangrene 07/16/13 PAST SURGICAL HISTORY: PAST SURGICAL HISTORY Procedure Laterality Date CORONARY STENT EA VESSEL 09/28/2017 Resolute Integrity, distal RCA, proximal LAD CYSTOSCOPY 04/10/2020 LAPAROSCOPY SURG CHOLECYSTECTOMY 05/30/2015 PAST SURGICAL HISTORY OF 08/17/2011 Rt shoulder arthoscopic bicep tenotomy AND reverse decompression REPAIR FIRST ABDOMINAL WALL HERNIA 07/16/2013 FAMILY HISTORY: FAMILY HISTORY Problem Relation Age of Onset None Mother other (Unknown) Father not known Cancer Sister Breast Cancer Heart Brother CABG in his 30s None Brother None Brother SOCIAL HISTORY: Social Connections: Not on file REVIEW OF SYSTEMS: GENERAL: No fever, chills, weight loss, or fatigue. All other systems reviewed and are negative PHYSICAL EXAMINATION: Blood pressure 138/90, pulse 60, temperature 37 ?C (98.6 ?F), temperature source Temporal, resp. rate 16, height 175.3 cm (5' 9), weight 92.5 kg (204 lb), SpO2 98 %. GENERAL: WNL nutrition, no deformities, healthy appearing PROBLEM LIST REVIEW: Yes LABS: Results for orders placed or performed in visit on 07/09/22 UA DIP, URINE (POC) Result Value Ref Range GLUCOSE UA (POCT) Negative Negative mg/dL BILIRUBIN UA (POCT) Negative Negative KETONE UA (POCT) Negative Negative mg/dL SPECIFIC GRAVITY UA (POCT) 1.025 1.005 - 1.030 HEMOGLOBIN/BLOOD UA (POCT) Negative Negative PH UA (POCT) 6.5 4.5 - 8.0 PROTEIN UA (POCT) Negative Negative mg/dL UROBILINOGEN UA (POCT) 0.2 Normal E.U./dL NITRITE UA (POCT) Negative Negative LEUKOCYTES UA (POCT) Negative Negative COLOR UA (POCT) Yellow CLARITY UA (POCT) Clear PROCEDURES: IMAGING: IMPRESSION/PLAN: 61 year old male with . 1. Gross hematuria - ICD9: 599.71, ICD10: R31.0 (primar (more content not included)... [facility] 07-09-2022 Note HNO ID: [id number] Author: Doris Mccoy LPN Service: ? Author Type: ? Type: Progress Notes Filed: 07/09/2022 5:51 PM Note Text: Verified name and date of . CC Post Void Residual HPI: Laquita Lamar is a 61 year old male. The patient is here now for an appointment with ISIS Gray, [place], PA-COV. Procedure: Explained procedure to patient and verbalizes understanding. Performed a PVR. Patient urinated and instructed to empty bladder as much as possible just prior to having PVR done using bladder ultrasound scanner. Results of scan: 0 mL The patient tolerated the procedure well. Plan: Appointment with Renetta. [facility] 07-09-2022 History of Present illness Narrative Images from the original note were not included. [facility] EST[facility]LISHED PATIENT CLINIC NOTE Some elements copied from his previous note, which have been updated where appropriate, and all reflect current medical decision making from date of this visit. SERVICE DATE: 07/09/2022 SERVICE TIME: 3:40 PM NAME: Laquita Lamar CHIEF COMPLAINT: Gross Hematuria HISTORY OF PRESENT ILLNESS: Laquita Lamar is a 61 year old Male with PMH including Meatal Structure s/p meatotomy in 2019 and had a episode of gross hematuria presenting with dysuria And difficult with urination. The patient reports this has been sicne his surgery on meatus, and did not follow up after procedure because there was no post-op appt and thought it would improve, but did not then he pass a huge clot and then felt like he no urinates freely LUTS: DYSURIA: yes URGENCY: Yes FREQUENCY:5 per day NOCTURIA: 2 per night STRAINING TO VOID: Yes EMPTIES COMPLETELY: No UTI: No GROSS HEMATURIA: yes MICROSCOPIC HEMATURIA: no UA DIPSTICK POSITIVE ONLY: no Other symptoms: ED - no LABS: Hematocrit (%) Date Value 03/20/2019 48.2 11/04/2017 48.7 05/22/2015 48.6 PSA (ng/mL) Date Value 11/04/2017 0.34 No results found for: TESTOST MEDICATIONS: amLODIPine (NORVASC) 2.5 mg tablet Take 2.5 mg by mouth once daily. atorvastatin (LIPITOR) 40 mg tablet Take 1 tablet by mouth daily at bedtime. For cholesterol. carvedilol (COREG) 3.125 mg tablet Take 1 tablet by mouth twice daily. aspirin, enteric coated (ASPIRIN, ENTERIC COATED) 81 mg EC tablet Take 1 tablet by mouth once daily. iv contrast (will be provided with radiology test) CT Urogram WO/W Inject, intravenously, once for 1 dose.No IV access, insert saline lock prior to the beginning of sedation, infusion, injection of imaging exam. Discontinue saline lock post exam. If Pt. has a central line or IVAD, may access for administration according to line specific nursing protocol. Once exam is complete flush line and de-access according to line specific nursing protocol in the CT contrast administration guidelines link. 0.9 % sodium chloride (NACL 0.9%) infusion Inject 150 mL/hr intravenously one time only for 1 dose. Administer at rate defined per CT contrast administration specifications. To be provided with radiology test. lisinopril (ZESTRIL, PRINIVIL) 10 mg tablet Take 1 tablet by mouth once daily. 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 (HCC) 10/05/2017 Epigastric pain 05/30/2015 Hypertension, essential 10/05/2017 Psoriasis 11/13/1990 Rotator cuff tear 06/22/2011 STEMI (ST elevation myocardial infarction) ([facility]) 09/28/2017 Tobacco use disorder 06/19/2009 Ventral hernia 06/07/2013 Ventral hernia, unspecified, without mention of obstruction or gangrene 07/16/13 PAST SURGICAL HISTORY: PAST SURGICAL HISTORY Procedure Laterality Date CORONARY STENT EA VESSEL 09/28/2017 Resolute Integrity, distal RCA, proximal LAD CYSTOSCOPY 04/10/2020 LAPAROSCOPY SURG CHOLECYSTECTOMY 05/30/2015 PAST SURGICAL HISTORY OF 08/17/2011 Rt shoulder arthoscopic bicep tenotomy & reverse decompression REPAIR FIRST ABDOMINAL WALL HERNIA 07/16/2013 FAMILY HISTORY: FAMILY HISTORY Problem Relation Age of Onset None Mother other (Unknown) Father not known Cancer Sister Breast Cancer Heart Brother CABG in his 30s None Brother None Brother SOCIAL HISTORY: Social Connections: Not on file REVIEW OF SYSTEMS: GENERAL: No fever, chills, weight loss, or fatigue. All other systems reviewed and are negative PHYSICAL EXAMINATION: Blood pressure 138/90, pulse 60, temperature 37 C (98.6 F), temperature source Temporal, resp. rate 16, height 175.3 cm (5' 9), weight 92.5 kg (204 lb), SpO2 98 %. GENERAL: WNL nutrition, no deformities, healthy appearing PROBLEM LIST REVIEW: Yes LABS: Results for orders placed or performed in visit on 07/09/22 UA DIP, URINE (POC) Result Value Ref Range GLUCOSE UA (POCT) Negative Negative mg/dL BILIRUBIN UA (POCT) Negative Negative KETONE UA (POCT) Negative Negative mg/dL SPECIFIC GRAVITY UA (POCT) 1.025 1.005 - 1.030 HEMOGLOBIN/BLOOD UA (POCT) Negative Negative PH UA (POCT) 6.5 4.5 - 8.0 PROTEIN UA (POCT) Negative Negative mg/dL UROBILINOGEN UA (POCT) 0.2 Normal E.U./dL NITRITE UA (POCT) Negative Negative LEUKOCYTES UA (POCT) Negative Negative COLOR UA (POCT) Yellow CLARITY UA (POCT) Clear PROCEDURES: IMAGING: IMPRESSION/PLAN: 61 year old male with . 1. Gross hematuria - ICD9: 599.71, ICD10: R31.0 (primary diagnosis) 2. Burning with urination - ICD9: 788.1, ICD10: R30.0 - CYTOLOGY NON-ANALYSIS SPECIALIST - CYSTO.PANENDO; Future - CREATININE BLD; Future - URINE CULTURE - CT UROGRAM WO/W IVCON; Future CT Urogram to be scheduled at [facility] Cystoscopy to scheduled at [facility] - Urology ([place]) they will contact patient # Urine Culture Pending Urine Cytology- Pending [facility] Gray [place], PA-C Verified name and date of . CC Post Void Residual HPI: Laquita Lamar is a 61 year old male. The patient is here now for an appointment with [facility] Gray [place], PA-COV. Procedure: Explained procedure to patient and verbalizes understanding. Performed a PVR. Patient urinated and instructed to empty bladder as much as possible just prior to having PVR done using bladder ultrasound scanner. Results of scan: 0 mL The patient tolerated the procedure well. Plan: Appointment with Renetta. documented in this encounter [facility] 10-05-2021 Note HNO ID: [id number] Author: Sinai Gonzales APRN.[employer] Service: ? Author Type: Nurse Practitioner Type: Progress Notes Filed: 10/05/2021 1:15 PM Note Text: Subjective The history is provided by the patient. No educational director was used. HPI Laquita Lamar is a 60 year old male who presents today for CC of runny nose and cough for a 10 days, want to know if this was covid. has similar symptoms. States symptoms are improving since oset. He has had the following over the past 10 days. Symptoms include: Fever (?100.4F): Yes or Chills: No Cough: Yes Shortness of breath: No or Difficulty breathing: No Fatigue: Yes Muscle aches: Yes Headache: Yes New loss of smell or taste: No Sore throat: Yes Nasal congestion: Yes or Rhinorrhea: Yes Nausea: No or Vomiting: No Diarrhea: No OTC meds/remedies that patient has tried: OTC cold medicine. High risk category assessment Hypertension Coronary artery disease Exposures: Sick contacts? Yes Family or close contacts with confirmed/probable COVID-19 in last 14 days? No BP 120/84 Pulse 93 Temp 36.7 ?C (98.1 ?F) Resp 18 Wt 88.5 kg (195 lb) SpO2 95% BMI 28.80 kg/m? 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 HENT: Positive for sore throat. Negative for congestion, ear pain and sinus pain. Respiratory: Negative for cough, sputum production, shortness of breath and wheezing. Cardiovascular: Negative for chest pain. Musculoskeletal: Negative for myalgias. Neurological: Negative for headaches. Objective Physical Exam Vitals and nursing note reviewed. HENT: Head: Normocephalic and atraumatic. Right Ear: Tympanic membrane, ear canal and external ear normal. Left Ear: Tympanic membrane, ear canal and external ear normal. Nose: Mucosal edema, congestion and rhinorrhea present. Right Sinus: No maxillary sinus tenderness or frontal sinus tenderness. Left Sinus: No maxillary sinus tenderness or frontal sinus tenderness. Mouth/Throat: Pharynx: Uvula midline. No oropharyngeal exudate or posterior oropharyngeal erythema. Tonsils: No tonsillar abscesses. Cardiovascular: Rate and Rhythm: Normal rate and regular rhythm. Heart sounds: Normal heart sounds. Pulmonary: Effort: Pulmonary effort is normal. Breath sounds: Normal breath sounds. No decreased breath sounds, wheezing, rhonchi or rales. Lymphadenopathy: Head: Right side of head: No submental, submandibular, tonsillar or preauricular adenopathy. Left side of head: No submental, submandibular, tonsillar or preauricular adenopathy. Cervical: No cervical adenopathy. Right cervical: No superficial cervical adenopathy. Left cervical: No superficial cervical adenopathy. ASSESSMENT/PLAN: 1. Viral illness - ICD9: 079.99, ICD10: B34.9 - Discussed viral etiology and rationale for treatment. - Symptomatic treatment with prn analgesia - Supportive care with fluids and rest 2. Suspected COVID-19 virus infection - ICD9: V01.79, ICD10: Z20.822 Patient is past quarentine Testing ordered Comfort measures discussed - see patient instructions. When to seek higher level of care Notified in 24-48 hours with results, available on [facility] - COVID WITH FLUA+B, ROUTINE Diagnosis and treatment plan were discussed and questions were answered to the patient's satisfaction. Pt acknowledged understanding of concepts and follow up plan. Specific signs and symptoms that would indicate the need for higher level of care were discussed in detail warranting prompt ER evaluation. Sinai Gonzales APRN.[facility] 09-15-2021 Note Patient Outreach (IN TMWS) LAQUITA LAMAR ([id number]) 1960 [address]* Date Time Provider Department 09/15/21 KAYLIE GUZMAN (JEANETH) INTMWS During your visit today, we recorded the following information about you: Kaylie Guzman LPN 09/15/2021 8:16 AM Signed POPULATION HEALTH NAVIGATION OUTREACH Action/FYI Called Patient to schedule appt, he sees live source operator, feels that coming in here is a waste of his time, he's fine. Still wants to have Dr. Lyles listed as his PCP. Contact made with patient or family member? YES Pt identified by name and : YES Outreach Outcome/Action Spoke to patient or caregiver: Patient declined Reason for Outreach Care Gap or Scheduling/Wellness visits Payer: Payor: SURENDRA / Plan: BLUE ACCESS PPO / Product Type: PPO / Care Gap Reviewed:: Follow-up appointment Controlling Blood Pressure Reminder: Reminder note to check Health Maintenance for items below Health Maintenance items due: COVID-19 VACCINE(1) Never done HIV SCREENING Never done SHINGRIX VACCINE(1 of 2) Never done DEPRESSION SCREENING due on 12/01/2018 ANNUAL PCP TEAM CHRONIC DISEASE VISIT due on 03/23/2020 BP CONTROLLED (<130/80) due on 03/23/2020 INFLUENZA(1) due on 05/20/2021 DTAP,TDAP,TD(8 - Td or Tdap) due on 07/07/2021 Kaylie Guzman LPN September 15, 2021 8:13 AM Allergies As of Date: 09/15/2021 (No Known Allergies) Date Reviewed: 04/10/2020 Reviewed by: Faraz (Rn) NINO Owens - Fully Assessed Prescriptions as of 09/15/2021 - phenazopyridine (PYRIDIUM) 200 mg tablet Take 1 tablet by mouth three times daily as needed. - cephALEXin (KEFLEX) 500 mg capsule Take 1 capsule by mouth twice daily. - atorvastatin (LIPITOR) 40 mg tablet Take 1 tablet by mouth daily at bedtime. For cholesterol. - carvedilol (COREG) 3.125 mg tablet Take 1 tablet by mouth twice daily. - lisinopril (ZESTRIL, PRINIVIL) 10 mg tablet Take 1 tablet by mouth once daily. - aspirin, enteric coated (ADULT LOW DOSE ASPIRIN) 81 mg EC tablet Take 1 tablet by mouth once daily. Problem List As Of Date 09/15/2021 Noted Resolved Tobacco use disorder [F17.200] 06/19/2009 12/01/2017 Psoriasis [L40.9] 11/13/1990 Rotator cuff tear [M75.100] 06/22/2011 12/01/2017 Ventral hernia [K43.9] 06/07/2013 12/01/2017 Coronary artery disease involving campo jolly*10/05/2017 Hypertension, essential [I10] 10/05/2017 Pure hypercholesterolemia [E78.00] 12/01/2017 Encounter Status:Closed by KAYLIE GUZMAN LPN on 09/15/21 [facility] 09-15-2021 Note HNO ID: [id number] Author: Kaylie Guzman LPN Service: ? Author Type: ? Type: Progress Notes Filed: 09/15/2021 8:16 AM Note Text: POPULATION HEALTH NAVIGATION OUTREACH Action/FYI Called Patient to schedule appt, he sees live source operator, feels that coming in here is a waste of his time, he's fine. Still wants to have Dr. Lyles listed as his PCP. Contact made with patient or family member? YES Pt identified by name and : YES Outreach Outcome/Action Spoke to patient or caregiver: Patient declined Reason for Outreach Care Gap or Scheduling/Wellness visits Payer: Payor: SURENDRA / Plan: BLUE ACCESS PPO / Product Type: PPO / Care Gap Reviewed:: Follow-up appointment Controlling Blood Pressure Reminder: Reminder note to check Health Maintenance for items below Health Maintenance items due: COVID-19 VACCINE(1) Never done HIV SCREENING Never done SHINGRIX VACCINE(1 of 2) Never done DEPRESSION SCREENING due on 12/01/2018 ANNUAL PCP TEAM CHRONIC DISEASE VISIT due on 03/23/2020 BP CONTROLLED (<130/80) due on 03/23/2020 INFLUENZA(1) due on 05/20/2021 DTAP,TDAP,TD(8 - Td or Tdap) due on 07/07/2021 Kaylie Guzman LPN September 15, 2021 8:13 AM [facility] 07-28-2021 Note HNO ID: [id number] Author: Kaylie Guzman LPN Service: ? Author Type: ? Type: Progress Notes Filed: 07/28/2021 4:32 PM Note Text: POPULATION HEALTH NAVIGATION OUTREACH Action/FYI Spoke to Patient, he is currently at work. Will have to check schedule and call back in. Contact made with patient or family member? YES Pt identified by name and : YES Outreach Outcome/Action Spoke to patient or caregiver: Patient declined Reason for Outreach Care Gap or Scheduling/Wellness visits Payer: Payor: REAL SAMURAI / Plan: [employer] PPO / Product Type: PPO / Care Gap Reviewed:: Follow-up appointment Reminder: Reminder note to check Health Maintenance for items below Health Maintenance items due: COVID-19 VACCINE(1) Never done HIV SCREENING Never done SHINGRIX VACCINE(1 of 2) Never done DEPRESSION SCREENING due on 12/01/2018 ANNUAL PCP TEAM CHRONIC DISEASE VISIT due on 03/23/2020 BP CONTROLLED (<130/80) due on 03/23/2020 INFLUENZA(1) due on 05/20/2021 DTAP,TDAP,TD(8 - Td or Tdap) due on 07/07/2021 Kaylie Guzman LPN July 28, 2021 4:31 PM [facility] 07-28-2021 Note Patient Outreach (IN TMWS) LAQUITA LAMAR ([id number]) 1960 [address]* Date Time Provider Department 07/28/21 KAYLIE GUZMAN (JEANETH) INTMWS During your visit today, we recorded the following information about you: Kaylie Guzman LPN 07/28/2021 4:32 PM Signed POPULATION HEALTH NAVIGATION OUTREACH Action/FYI Spoke to Patient, he is currently at work. Will have to check schedule and call back in. Contact made with patient or family member? YES Pt identified by name and : YES Outreach Outcome/Action Spoke to patient or caregiver: Patient declined Reason for Outreach Care Gap or Scheduling/Wellness visits Payer: Payor: SURENDRA / Plan: [employer] PPO / Product Type: PPO / Care Gap Reviewed:: Follow-up appointment Reminder: Reminder note to check Health Maintenance for items below Health Maintenance items due: COVID-19 VACCINE(1) Never done HIV SCREENING Never done SHINGRIX VACCINE(1 of 2) Never done DEPRESSION SCREENING due on 12/01/2018 ANNUAL PCP TEAM CHRONIC DISEASE VISIT due on 03/23/2020 BP CONTROLLED (<130/80) due on 03/23/2020 INFLUENZA(1) due on 05/20/2021 DTAP,TDAP,TD(8 - Td or Tdap) due on 07/07/2021 Kaylie Guzman LPN July 28, 2021 4:31 PM Allergies As of Date: 07/28/2021 (No Known Allergies) Date Reviewed: 04/10/2020 Reviewed by: Faraz Oneal) NINO Owens - Fully Assessed Prescriptions as of 07/28/2021 - phenazopyridine (PYRIDIUM) 200 mg tablet Take 1 tablet by mouth three times daily as needed. - cephALEXin (KEFLEX) 500 mg capsule Take 1 capsule by mouth twice daily. - atorvastatin (LIPITOR) 40 mg tablet Take 1 tablet by mouth daily at bedtime. For cholesterol. - carvedilol (COREG) 3.125 mg tablet Take 1 tablet by mouth twice daily. - lisinopril (ZESTRIL, PRINIVIL) 10 mg tablet Take 1 tablet by mouth once daily. - aspirin, enteric coated (ADULT LOW DOSE ASPIRIN) 81 mg EC tablet Take 1 tablet by mouth once daily. Problem List As Of Date 07/28/2021 Noted Resolved Tobacco use disorder [F17.200] 06/19/2009 12/01/2017 Psoriasis [L40.9] 11/13/1990 Rotator cuff tear [M75.100] 06/22/2011 12/01/2017 Ventral hernia [K43.9] 06/07/2013 12/01/2017 Coronary artery disease involving campo jolly*10/05/2017 Hypertension, essential [I10] 10/05/2017 Pure hypercholesterolemia [E78.00] 12/01/2017 Encounter Status:Closed by KAYLIE GUZMAN LPN on 07/28/21 [facility] 06-07-2013 History of Past i llness Narrative Problem Noted Date Resolved Date Ventral hernia 06/07/2013 12/01/2017 Rotator cuff tear 06/22/2011 12/01/2017 Tobacco use disorder 06/19/2009 12/01/2017 documented as of this encounter (statuses as of 07/09/2022) [facility] History of Past illness Narrative* Problem Noted Date Resolved Date Ventral hernia 06/07/2013 12/01/2017 Rotator cuff tear 06/22/2011 12/01/2017 Tobacco use disorder 06/19/2009 12/01/2017 documented as of this encounter (statuses as of 07/12/2022) [facility] of Past illness Narrative* Problem Noted Date Resolved Date Ventral hernia 06/07/2013 12/01/2017 Rotator cuff tear 06/22/2011 12/01/2017 Tobacco use disorder 06/19/2009 12/01/2017 documented as of this encounter (statuses as of 07/19/2022) [facility] of Past illness Narrative* Problem Noted Date Resolved Date Ventral hernia 06/07/2013 12/01/2017 Rotator cuff tear 06/22/2011 12/01/2017 Tobacco use disorder 06/19/2009 12/01/2017 documented as of this encounter (statuses as of 08/03/2022) [facility] of Past illness Narrative* Problem Noted Date Diagnosed Date Resolved Date Ventral hernia 06/07/2013 12/01/2017 Rotator cuff tear 06/22/2011 12/01/2017 Tobacco use disorder 06/19/2009 018 documented as of this encounter (statuses as of 07/24/2023) [facility] Gross hematuria- Primary Burning with urination D[facility] Gross [facility]uria- Primary Burning with urination Dysuria [facility] noteNo assessment information availableWWexner [facility] Work Phone: Evaluation note* Diagnosis Onset Date Resolution Status Hyperlipidemia acute Raynauds disease acute Atherosclerotic heart diseas e of campo coronary artery without angina pectoris chronic Essential (primary) hypertension chronic [facility] Work Phone: Evaluation note* Diagnosis Gross hematuria documented in this encounter [facility] Discharge instructions Additional Instructions Call [facility] for appointmentWWex[facility] Work Phone: Summary Purpose Family History No Family History Records Found Relationship Condition Age at Onset Recorded Date/T nancy brother Coronary artery disease Unknown Advance Directives No Advanced Directives Records Found Advance Directive Response Recorded Date/ Time Advance Directives No May 2:52pm Living Will No August 10, 2 022 3:29pm Power of Family Dentist No August 10, 2022 3:29pm Advance Directive Response Recorded Date/ Time Advance Directives No May 3:52pm Living Will No August 10, 2 022 4:29pm Power of Family Dentist No August 10, 2022 4:29pm Advance Directive Response Recorded Date/ Time Advance Directives No May 2:52pm Living Will No August 14, 2 023 4:04pm Power of Family Dentist No August 14, 2023 4:04pm Advance Directive Response Recorded Date/ Time Advance Directives No May 3:52pm Living Will No August 14, 2 023 5:04pm Power of Family Dentist No August 14, 2023 5:04pm Reason for Referral Specialty Diagnoses / Procedures Referred By Kathy morris Referred To Contact CT IMAGING Diagnoses Gross hematuria Procedures CT UROGRAM WO/W IVCON CT ABD & PELVIS W/O CONTRST 1+ BODY Renetta Bryan PA-C [address] [place] [address] Ct Imaging Referral ID Status Reason Start Date Expiration Date Visits Requested Visits Authorized [id number] Authorized Auto-Generat ed Referral 2 08/08/2023 1 1 Specialty Diagnoses / Procedures Referred By Kathy morris Referred To Contact CT IMAGING Diagnoses Gross hematuria Procedures CT UROGRAM WO/W IVCON CT ABD & PELVIS W/O CONTRST 1+ BODY Renetta Bryan PA-C [address] [place] [address] [place] [address] Referral ID Status Reason Start Date Expiration Date V isits Requested Visits Authorized [id number] Closed Auto-Generate d Referral 07/09/2022 08/08/2023 1 1 Chief Complaint and Reason for Visit Chief Complaint CP Chief Complaint 1 Y FU E-ORDER Reason for Visit Hyperlipidemia Raynauds disease Atherosclerotic heart disease of campo coronary artery without angina pectoris Essential (primary) hypertension Chief Complaint urinary issues Chief Complaint urinary issues PSA Additional Source Comments (unrecognized sect ion and content) No Status Records FoundNo Status Records FoundNo Status Records FoundNo Status Records FoundNo Status Records Found INFORMATION SOURCE (unrecogn ized section and content) DATE CREATED AUTHOR 04/13/2020 [facility] DATE CREATED AUTHOR AUTHOR'S ORGANIZ ATION 07/19/2022 [facility] DATE CREATED AUTHOR AUTHOR'S ORGANIZ ATION 08/05/2022 [facility] DATE CREATED AUTHOR AUTHOR'S ORGANIZ ATION 08/18/2023 [facility] ([place]) DATE CREATED AUTHOR AUTHOR'S ORGANIZ ATION 04/08/2024 [facility] Source Comments (unrecognize d section and content) In the event this informatio n is protected by the Federal Confidentiality of Alcohol and Drug Abuse Patient Records regulations: The Federal rules restrict any use of the information to criminally investigate or prosecute any alcohol or drug abuse patient.[facility] the event this information is protected by the Federal Confidentiality of Alcohol and Drug Abuse Patient Records regulations: The Federal rules restrict any use of the information to criminally investigate or prosecute any alcohol or drug abuse patient.[facility] CenterIn the event this information is protected by the Federal Confidentiality of Alcohol and Drug Abuse Patient Records regulations: The Federal rules restrict any use of the information to criminally investigate or prosecute any alcohol or drug abuse patient.[facility] Center[facility] the event this information is protected by the Federal Confidentiality of Alcohol and Drug Abuse Patient Records regulations: The Federal rules restrict any use of the information to criminally investigate or prosecute any alcohol or drug abuse patient.[facility] CenterIn the event this information is protected by the Federal Confidentiality of Alcohol and Drug Abuse Patient Records regulations: The Federal rules restrict any use of the information to criminally investigate or prosecute any alcohol or drug abuse patient.[facility] Reason for Visit (unrecogniz ed section and content) Reason Comments Follow Up Reason Comments Appointment Reason Comments Results Reason Comments Cystoscopy-[address] Specialty Diagnoses / Procedures Referred By Contac t Referred To Contact CT IMAGING Diagnoses Gross hematuria Procedures CT UROGRAM WO/W IVCON CT ABD & PELVIS W/O CONTRST 1+ BODY Renetta Bryan PA-C [address] [place] [address] [place] [address] Referral ID Status Reason Start Date Expiration Date V isits Requested Visits Authorized [id number] Closed Auto-Generate d Referral 07/09/2022 08/08/2023 1 1 Care Teams (unrecognized sec tion and content) 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 Evan Lyles MD Family Provider Active Dr. Evan Lyles MD Primary Care Provider Active Team Status: Inactive Member Role Status Dates Dr. Evan Lyles MD Primary Care Provider, Refer ring Provider Active Kimberly LAY PA Attending Provider Active Team Status: Inactive Member Role Status Dates Dr. 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 Evan Lyles MD Primary Care Provider Active Kuldip Wilson MD Emergency Provider Active Team Status: Inactive Member Role Status Dates Dr. Evan Lyles MD Primary Care Provider Active Kuldip Wilson MD Attending Provider, Emergency Provid er Active Team Status: Inactive Member Role Status Dates Dr. Evan Lyles MD Primary Care Provider Active Dr. Viral Lyn MD Attending Provider, Referr ing Provider Active Goals (unrecognized section and content) Goals may be documented in a n alternate sectionGoals may be documented in an alternate sectionGoals may be documented in an alternate sectionGoals may be documented in an alternate section FOR RECORDS PERTAINING TO PATIENTS WHO ARE OR HAVE BEEN ENROLLED IN A CHEMICAL DEPENDENCY/SUBSTANCEABUSE PROGRAM, SOME INFORMATION MAY BE OMITTED. This clinical summary was aggregated from multiple sources. Caution should be exercised in using it in the provision of clinical care. This summary normalizes information from multiple sources, and as a consequence, information in this document may materially change the coding, format and clinical context of patient data. In addition, data may be omitted in some cases. CLINICAL DECISIONS SHOULD BE BASED ON THE PRIMARY CLINICAL RECORDS. [employer] [facility]. provides no warranty or guarantee of the accuracy or completeness of information in this document.
[2025-09-18 09:02] LABS: Hematocrit 47.6 % (40-54); Hemoglobin 16.1 g/dL (13.0-16.5); Immature Granulocytes Count 0.020 X10^3/uL (0.0-0.0); Mean Corp Hgb Conc 33.8 g/dL (32-36); Mean Corpuscular Volume 93.3 fL (80-94); Mean Platelet Vol. 10.8 fl (6.2-12.0); NRBC Flagged by Analyzer 0 % (0-5); Platelet Count 210 K/mm3 (150-450); RBC Distribution Width CV 13.1 % (11.6-14.6); RBC Distribution Width SD 44.2 fl (35.1-43.9); Red Blood Count 5.10 M/mm3 (4.6-6.2); White Blood Count 8.4 K/mm3 (4.4-11.0)
[2025-09-18 09:33] LABS: AST(SGOT) 31 U/L (<=37); Alanine Aminotransfer ALT/SGPT 37 U/L (<=46); Albumin, Serum 4.2 g/dL (3.4-4.8); Alkaline Phosphatase 71 U/L (40-129); Anion Gap 9 (7-18); BUN 13 mg/dL (4-19); BUN/Creat Ratio 14.1 RATIO (10-20); Bilirubin, Direct 0.26 mg/dL (0.00-0.30); Calcium,Total 9.0 mg/dL (7.6-11.0); Carbon Dioxide 25.7 mmol/L (20.0-29.0); Chloride 104 mmol/L (96-106); Cholesterol 142 mg/dL (<=200); Globulin 3.0 g/dL (2.2-4.2); Glucose 100 mg/dL (70-99); Low Density Lipoprotein Calc. 94 mg/dL; Potassium 4.5 mmol/L (3.5-5.1); Triglycerides 82 mg/dL; Very Low Density Lipoprotein 16 mg/dL (5-40); cholesterol:hdl ratio screen 4.49
== END | disposition home or self-care (01) ==
LOC: LAB 08:34
PROVIDERS: Referring Provider Nurse Practitioner Family; Visit Provider Nurse Practitioner Family
DX: E78.2 Mixed hyperlipidemia (principal); I10 Essential (primary) hypertension; Z95.5 Presence of coronary angioplasty implant and graft
CPT/HCPCS: 36415; 80048; 80061; 80076; 85025